=== PATIENT | female | born 1990 | race Caucasian/White ===

== ENCOUNTER 2016-11-14 10:45 | Outpatient (RCR) | payer MEDICAID ==
--- OUTSIDE RECORDS SUMMARY | 2016-10-24 10:36 | XMS REPORT | Continuity of Care Document ---
Author Author [facility] Organization [facility] Address Unknown Phone Unavailable Care Team Providers Care Acds Block 1 Operator Name Role Phone MAURA CHATTERJEE MD PCP Insurance Providers Payer Name Policy Number Subscriber Name Relationship [facility] [id number] Starr Chu 18 Self / Same As Patient Advance Directives Directive Response Recorded Date/Time Advance Directives No 09/30/16 11:00am Health Care Power of Crane Man No 09/30/16 11:00am Organ Donor Yes 09/30/16 11:00am Resuscitation Status Full Code 09/30/16 11:00am Chief Complaint and Reason for Visit Chief Complaint General Problems/Pain Reason for Visit Urinary tract infection Nausea & vomiting Dental abscess Problems Active Problems Medical Problem Onset Date Status Abdominal pain Unknown Acute Bronchitis Unknown Acute Dental abscess Unknown Acute Nausea & vomiting Unknown Acute RLQ abdominal pain Unknown Acute Urinary tract infection Unknown Acute Medications Current Home Medications Medication Dose Units Route Directions Days/Qty Instructions Start Date Vit/Iron Fumarate/Fa 1 Each 1 Each Oral Daily 09/06/16 Ondansetron 8 Mg 8 Mg Oral Every 6 Hours as needed for Nausea 5 Amoxicillin 500 Mg 500 Mg Oral Three Times A Day 21 09/30/16 Past Home Medications Medication Directions Ordered Status Ondansetron Hcl 4 Mg Tab, 4 Mg Oral Every 4HRS 10/30/15 Discontinued Famotidine 20 Mg Tablet, 20 Mg Oral Twice A Day 10/30/15 Discontinued Tramadol Hcl 50 Mg Tablet, 50 Mg Oral Every 6 Hours as needed for Pain Discontinued Prednisone 20 Mg Tab, 40 Mg Oral Daily 01/26/16 Discontinued Albuterol Sulfate 8.5 Gm Hfa.aer.ad, 2 Puff Inhalation Every 4HRS as needed for Shortness Of Breath 01/26/16 Discontinued Azithromycin 250 Mg Tablet, 250 Mg Oral As Directed 01/26/16 Discontinued Social History Social History Problem Response Recorded Date/Time Alcohol Use Rarely Uses 01/25/2016 9:12pm Recreational Drug Use No 01/25/2016 9:12pm Recent Foreign Travel No 09/30/2016 10:57am Recent Infectious Disease Exposure No 09/30/2016 10:57am Smoking Status Current Everyday Smoker 09/30/2016 11:00am Recent Hopitalizations No 09/30/2016 11:00am Query Response Start Date Stop Date Smoking Status Current Everyday Smoker Hospital Discharge Instructions No hospital discharge instructions. Plan of Care Discharge Date 09/30/16 1:30pm Disposition 01 HOME, SELF-CARE Condition at Discharge Stable Instructions/Education Provided Urinary Tract Infection, Adult (DC) Prescriptions See Medication Section Referrals MAURA CHATTERJEE MD - Primary Care Physician Additional Instructions/Education 1. Antibiotics as directed 2. Nausea medication as needed 3. Follow-up with your doctor next week 5. Return to ER for any fevers or other concerns All discharge instructions reviewed with patient and/or family. Voiced understanding. Functional Status No functional status results. Allergies, Adverse Reactions, Alerts No known allergies. Immunizations No immunization records. Vital Signs Acute Vital Signs Vital Response Date/Time Temperature (Fahrenheit) 97.9 degrees F (97.6 - 99.5) 09/30/2016 10:57am Temperature (Calculated Celsius) 36.84079 degrees C (36.4 - 37.5) 09/30/2016 10:57am Temperature Source Temporal 09/30/2016 10:57am Pulse Rate (adult) 109 bpm (60 - 90) 09/30/2016 10:57am Respiratory Rate 18 bpm (12 - 24) 09/30/2016 10:57am Blood Pressure 139/92 mm Hg 09/30/2016 10:57am Blood Pressure Mean 108 mm Hg 09/30/2016 10:57am Pain Numeric Pain Scale 9 09/30/2016 10:57am Pain Height (Feet) 6 feet 09/30/2016 10:57am Height (Inches) 0.00 inches 09/12/2016 9:25pm Height (Calculated Centimeters) 182.205156 cm 09/30/2016 10:57am Weight (Pounds) 273 pounds 09/30/2016 10:57am Weight (Ounces) 0.0 oz 09/12/2016 9:25pm Weight (Calculated Grams) 752791.13 gm 09/12/2016 9:25pm Weight (Calculated Kilograms) 123.885180 kilograms 09/30/2016 10:57am Calculated BMI 36.9 09/12/2016 9:25pm Capillary Refill Capillary Refill Less Than 3 Seconds 09/30/2016 10:57am Results Pending Laboratory Results Test Name Collection Date/Time Procedures No known history of procedures. Encounters Encounter Location Arrival/Admit Date Discharge/Depart Date Attending Provider Departed Emergency Room [facility] 09/30/16 10:36am 03/12 1:30pm ADELA GONZALEZ APRN Registered Clinic [facility] 09/16/16 12:18pm MAURA CHATTERJEE MD Departed Clinic [facility] 09/12/16 9:20pm 09/12/16 10: 47pm NELSY SWEENEY DO Departed Clinic [facility] 09/06/16 6:04pm 09/06/16 10: 20pm MAURA CHATTERJEE MD Recent Diagnosis
[2016-10-24 12:51] VITALS: BP 135/85
--- NOTE | 2016-10-24 12:56 | Diagnostic Imaging Report ---
INDICATION: Abnormal quad screening. TECHNIQUE: Limited real-time grayscale images were obtained over the gravid uterus in various projections. FINDINGS: There was normal breathing movements, movement, posture and tone as well as normal volume amniotic fluid. Total amniotic fluid index is 7.8. There is active cardiac motion. IMPRESSION: Normal biophysical profile score of 8 out of 8. Dictated by: Dictated on workstation # [id number]
[2016-10-31 12:40] VITALS: BP 142/86
--- NOTE | 2016-11-01 11:20 | Diagnostic Imaging Report ---
OB ultrasound. INDICATION: Biophysical profile and measurements. FINDINGS: The heart rate is 140 beats per minute and the presentation is cephalic. Total ANA LAURA is at 8.6. Biophysical profile parameter criteria as met with total score of 8 out of 8. The placenta is anterior with no placenta previa. growth parameters are biparietal diameter at 33 weeks and 3 days, head circumference at 34 weeks and 1 day, abdominal circumference at 33 weeks and 4 days, and femur length at 36 weeks and 5 days for an average of 34 weeks and 4 days, compatible with gestational age of 35 weeks and 3 days. Estimated weight is 2.4 kg. IMPRESSION: Appropriate interval growth. Biophysical profile score is 8 out of 8. ANA LAURA is near the lower limits of normal at 8.6 cm. Dictated by: Dictated on workstation # [id number]
[2016-11-07 13:00] VITALS: BP 131/78
--- NOTE | 2016-11-07 13:34 | Diagnostic Imaging Report ---
Biophysical profile. INDICATION: Abnormal quad screening. FINDINGS: heart rate is 130 beats per minute. presentation is cephalic. Placenta is anterior. No placenta previa. The amniotic fluid index is 8.7 cm. Criteria for biophysical profile are all met for a total score of 8 out of 8. IMPRESSION: Total biophysical profile is 8 out of 8. Dictated by: Dictated on workstation # [id number]
[~2016-11-14 10:45] MED LIST: AMOX500C2 PO; AZIT250T PO; AZIT250T5 PO; FAMO-119 PO; ONDA8TAB9 PO; ONDN4T PO; PRD20T PO; PREN1TAB71 PO; RT-ALBUINH IH; TRAM50TA2 PO
--- NOTE | 2016-11-14 12:14 | Diagnostic Imaging Report ---
INDICATION: Abnormal quad screen. FINDINGS: The heart rate is 133 beats per minutes. The position is cephalic. The amniotic fluid index at 5.4 cm. Criteria for biophysical profile were abnormal with only 1 second of movement seen, no bleeding noted. No flexion or extension seen. Total biophysical profile score is 2/8. IMPRESSION: Total biophysical profile score is 2/8. Oligohydramnios. The findings were given to OB nurse Marianna taking care of the patient by cardiac cath technologist when the exam was performed. Dictated by: Dictated on workstation # [id number]
[2016-11-17] MEDS ORDERED: NIFE60TA64 PO (10:00)
[2016-11-17] MEDS ORDERED: HYDR-3812 PO (10:00)
== END 2017-01-22 | disposition home or self-care (01) ==
LOC: RAD 10:45
PROVIDERS: ATTEND Family Medicine
DX: O28.0 Abnormal hematological finding on antenatal screening of mother (principal); Z3A.34 34 weeks gestation of pregnancy
CPT/HCPCS: 59025; 76805; 76819

== ENCOUNTER 2017-09-25 21:07 | Emergency (ER) | payer SELFPAY ==
[~2017-09-25] VITALS: Ht 182.9 cm; Wt 115.2 kg
[~2017-09-25 21:07] MED LIST changes: +HYDR-3812 PO; +NIFE60TA64 PO
--- OUTSIDE RECORDS SUMMARY | 2017-09-25 21:12 | XMS REPORT ---
Author Author SENMAURA [facility] Address [address] [place] [address] Care Team Providers Care Maintainer Plant Name Role Phone MAURA CHATTERJEE Unavailable PROBLEMS Type Condition ICD9-CM Code CYC10-UL Code Onset Dates Condition Status SNOMED Code Problem Generalized anxiety disorder F41.1 Active 25569805 Problem Anxiety, generalized F41.1 Active 97486367 Problem depression F53 Active 35349948 Problem Patient is a currently breast-feeding mother Z39.1 Active 422797119 Problem History of gestational hypertension Z87.59 Active 240641141 ALLERGIES Substance Reaction Event Type Date Status N.K.D.A. Unknown Non Drug Allergy Dec, Unknown SOCIAL HISTORY No smoking Hx information available PLAN OF CARE Activity Details Follow Up 3 Months Reason:HTN, depression VITAL SIGNS Height 71 in 2016-12-29 Weight 258.0 lbs 2016-12-29 Temperature 98.0 degrees Fahrenheit 2016-12-29 Heart Rate 78 bpm 2016-12-29 Respiratory Rate 18 2016-12-29 BMI 35.98 kg/m2 2016-12-29 Blood pressure systolic 136 mmHg 2016-12-29 Blood pressure diastolic 78 mmHg 2016-12-29 MEDICATIONS Medication Instructions Dosage Frequency Start Date End Date Duration Status Active Depo-Provera 150 MG/ML Intramuscular every 12 weeks 1 ml Dec, Active Prozac 20 mg Orally Once a day 1 capsule in the morning 24h Nov, Active NIFEdipine ER 60 mg Orally Once a day 1 tablet on an empty stomach 24h Nov, Active RESULTS Name Result Date Reference Range TEST, URINE (IN HOUSE) 2016-12-29 RESULTS negative Lot # [id number] Control + Exp date 02/2018 PROCEDURES Procedure Date Ordered Related Diagnosis Body Site INJ MDRXYPRGESTRON CNTRACPT 150 MG Dec 29, 2016 THER/PROPH/DIAG INJ, SC/IM Dec 29, 2016 Office Visit, Est Pt., Level 3 Dec 29, 2016 URINE TEST Dec 29, 2016 IMMUNIZATIONS Vaccine Route Administration Date Status MEDRXYPROGESTERONE ACETATE IM Intramuscular Dec 29, 2016 Administered
--- OUTSIDE RECORDS SUMMARY | 2017-09-25 21:12 | XMS REPORT ---
Author Author MAURA CHATTERJEE [facility] Address [address] [place] [address] Care Team Providers Care Waiter/Waitress Tourist Class Name Role Phone MAURA CHATTERJEE Unavailable PROBLEMS Type Condition ICD9-CM Code VUU30-SW Code Onset Dates Condition Status SNOMED Code Problem Anxiety, generalized F41.1 Active 94677761 Problem Generalized anxiety disorder F41.1 Active 93366906 Problem depression F53 Active 08200746 Problem Patient is a currently breast-feeding mother Z39.1 Active 632786464 Problem History of gestational hypertension Z87.59 Active 948957338 ALLERGIES Unknown Allergies SOCIAL HISTORY No smoking Hx information available PLAN OF CARE VITAL SIGNS MEDICATIONS Unknown Medications RESULTS No Results PROCEDURES No Known procedures IMMUNIZATIONS No Known Immunizations
--- OUTSIDE RECORDS SUMMARY | 2017-09-25 21:12 | XMS REPORT ---
Author Author MICHEL ECHOLS [facility] Address [address] [place] [address] Care Team Providers Care Inclinometer Tester Name Role Phone MICHEL ECHOLS Unavailable PROBLEMS Type Condition ICD9-CM Code HGV47-UK Code Onset Dates Condition Status SNOMED Code Problem Generalized anxiety disorder F41.1 Active 37121621 Problem Anxiety, generalized F41.1 Active 18174598 Problem depression F53 Active 46176529 Problem Patient is a currently breast-feeding mother Z39.1 Active 881249090 Problem History of gestational hypertension Z87.59 Active 036721931 ALLERGIES Unknown Allergies SOCIAL HISTORY No smoking Hx information available PLAN OF CARE Activity Details Follow Up 1 Week Reason:Depression VITAL SIGNS MEDICATIONS Unknown Medications RESULTS No Results PROCEDURES Procedure Date Ordered Related Diagnosis Body Site Psychotherapy, patient &/family, 30 minutes, established patient Dec 21, 2016 IMMUNIZATIONS No Known Immunizations
--- OUTSIDE RECORDS SUMMARY | 2017-09-25 21:12 | XMS REPORT ---
Author Author SEN MAURA [facility] Address [address] [place] [address] Care Team Providers Care Adult Psychiatrist Name Role Phone SENMUNDO HANCOCKHANY Unavailable PROBLEMS Type Condition ICD9-CM Code NYD00-YY Code Onset Dates Condition Status SNOMED Code Problem Anxiety, generalized F41.1 Active 18924321 Problem Generalized anxiety disorder F41.1 Active 07617754 Problem depression F53 Active 18644551 Problem Patient is a currently breast-feeding mother Z39.1 Active 161410191 Problem History of gestational hypertension Z87.59 Active 030706152 ALLERGIES Unknown Allergies SOCIAL HISTORY No smoking Hx information available PLAN OF CARE VITAL SIGNS Height 71 in 2016-11-09 Weight 288.0 lbs 2016-11-09 Temperature 98.0 degrees Fahrenheit 2016-11-09 BMI 40.168 kg/m2 2016-11-09 Blood pressure systolic 140 mmHg 2016-11-09 Blood pressure diastolic 76 mmHg 2016-11-09 MEDICATIONS Medication Instructions Dosage Frequency Start Date End Date Duration Status Active RESULTS Name Result Date Reference Range UA OB DIP (IN HOUSE) 2016-11-09 Glucose negative Protein trace LDH 2016-11-09 LDH 170 119-226 URIC ACID, SERUM 2016-11-09 Uric Acid, Serum 5.8 2.5-7.1 URINE PROTEIN TO CREATININE RATIO 2016-11-09 Creatinine, Urine 218.9 Not Estab. Protein,Total,Urine 47.9 Not Estab. Protein/Creat Ratio 219 0-200 CBC 2016-11-09 WBC 15.4 3.4-10.8 RBC 4.19 3.77-5.28 Hemoglobin 12.7 11.1-15.9 Hematocrit 38.0 34.0-46.6 MCV 91 79-97 MCH 30.3 26.6-33.0 MCHC 33.4 31.5-35.7 RDW 12.3 12.3-15.4 Platelets 178 150-379 Neutrophils 61 Lymphs 31 Monocytes 7 Eos 1 Basos 0 Neutrophils (Absolute) 9.3 1.4-7.0 Lymphs (Absolute) 4.7 0.7-3.1 Monocytes(Absolute) 1.1 0.1-0.9 Eos (Absolute) 0.1 0.0-0.4 Baso (Absolute) 0.0 0.0-0.2 Immature Granulocytes 0 Immature Grans (Abs) 0.0 0.0-0.1 CMP 2016-11-09 Glucose, Serum 98 65-99 BUN 9 6-20 Creatinine, Serum 0.60 0.57-1.00 eGFR If NonAfricn Am 126 >59 eGFR If Africn Am 145 >59 BUN/Creatinine Ratio 15 8-20 Sodium, Serum 142 134-144 Potassium, Serum 3.8 3.5-5.2 Chloride, Serum 106 96-106 Carbon Dioxide, Total 19 18-29 Calcium, Serum 8.9 8.7-10.2 Protein, Total, Serum 5.9 6.0-8.5 Albumin, Serum 3.5 3.5-5.5 Globulin, Total 2.4 1.5-4.5 A/G Ratio 1.5 1.1-2.5 Bilirubin, Total <0.2 0.0-1.2 Alkaline Phosphatase, S 215 39-117 AST (SGOT) 13 0-40 ALT (SGPT) 11 0-32 PROCEDURES Procedure Date Ordered Related Diagnosis Body Site URINE-NO MICRO Nov 09, 2016 [facility] Nov [facility], 2016 VENIPUNCT, ROUTINE* Nov 09, 2016 Office Visit, Est Pt., Level 3 Nov 09, 2016 IMMUNIZATIONS No Known Immunizations
--- OUTSIDE RECORDS SUMMARY | 2017-09-25 21:12 | XMS REPORT ---
Author Author MAURA CHATTERJEE [employer] Address Unknown Phone Unavailable Care Team Providers Care Automobile Engine Assembler Name Role Phone MAURA CHATTERJEE CP Unavailable Allergies No Known Allergies Problems Problem Type Condition Code Onset Dates Condition Status Assessment Abnormal quad screen O28.0 Active Assessment Third trimester Z33.1 Active Assessment 31 weeks gestation of Z3A.31 Active Assessment Encounter for immunization Z23 Active Assessment Proteinuria affecting in third trimester O12.13 Active Problem Third trimester bleeding O46.93 Active Problem Partial placenta previa, second trimester O44.12 Active Problem Proteinuria affecting in third trimester O12.13 Active Problem Abnormal quad screen O28.0 Active Problem Elevated blood pressure affecting in first trimester, antepartum O13.1 Active Problem Proteinuria affecting in second trimester O12.12 Active Problem Hypertension affecting in second trimester O16.2 Active Medications Medication Code System Code Instructions Start Date End Date Status Dosage [facility] [id number] not defined Procedures Procedure Coding System Code Date LAB NOT BILLED BY [facility] CPT-4 NOBLL Oct 05, 2016 Office Visit, Est Pt., Level 3 CPT-4 22114 Oct 05, 2016 URINE-NO MICRO CPT-4 01574 Oct 05, 2016 SINGLE IMMUNIZATION ADMIN CPT-4 30798 Oct 05, 2016 TDAP (BOOSTRIX) CPT-4 33607 Oct 05, 2016 VENIPUNCT, ROUTINE* CPT-4 04976 Oct 05, 2016 Vital Signs Date/Time: Oct 05, 2016 Cardiac Monitoring Heart Rate 100 bpm Weight 276 lbs Height 71 in BMI 38.494 Index Blood Pressure Diastolic 70 mmHg Blood Pressure Systolic 124 mmHg Results Name Result Date Reference Range Unit Abnormality Flag LDH ----LDH 160 [id number] 119-226 IU/L URIC ACID, SERUM ----Uric Acid, Serum 5.0 23427577 2.5-7.1 mg/dL UA OB DIP (IN HOUSE) ----Glucose negative 20161005 ----Protein trace 34352930 ROUTINE VENIPUNCTURE CMP ----BUN/Creatinine Ratio 12 20161005 8-20 ----eGFR If Africn Am 147 74119580 >59 mL/min/1.73 ----eGFR If NonAfricn Am 128 84278844 >59 mL/min/1.73 ----Creatinine, Serum 0.58 09294215 0.57-1.00 mg/dL ----Chloride, Serum 103 20161005 97-106 mmol/L ----Potassium, Serum 4.3 00877755 3.5-5.2 mmol/L ----Sodium, Serum 140 23467193 136-144 mmol/L ----Protein, Total, Serum 6.0 73390060 6.0-8.5 g/dL ----Albumin, Serum 2.9 40755859 3.5-5.5 g/dL L ----Globulin, Total 3.1 48267924 1.5-4.5 g/dL ----A/G Ratio 0.9 20161005 1.1-2.5 L ----BUN 7 20161005 6-20 mg/dL ----Glucose, Serum 85 35084474 65-99 mg/dL ----Carbon Dioxide, Total 22 20161005 18-29 mmol/L ----Calcium, Serum 9.6 20807968 8.7-10.2 mg/dL ----AST (SGOT) 15 20161005 0-40 IU/L ----ALT (SGPT) 16 20161005 0-32 IU/L ----Bilirubin, Total 0.2 55388706 0.0-1.2 mg/dL ----Alkaline Phosphatase, S 140 20161005 39-117 IU/L H Ultrasound : OB, Follow-up URINE PROTEIN TO CREATININE RATIO ----Protein/Creat Ratio 198 47082900 0-200 mg/g creat ----Protein,Total,Urine 33.8 10813509 Not Estab. mg/dL ----Creatinine, Urine 170.5 80828509 Not Estab. mg/dL CBC ----Hemoglobin 13.2 41996742 11.1-15.9 g/dL ----RBC 4.24 88283639 3.77-5.28 x10E6/uL ----MCV 93 80809511 79-97 fL ----Hematocrit 39.5 32577196 34.0-46.6 % ----MCHC 33.4 52240172 31.5-35.7 g/dL ----MCH 31.1 49950990 26.6-33.0 pg ----Platelets 215 90571960 150-379 x10E3/uL ----RDW 13.1 12569262 12.3-15.4 % ----Neutrophils 68 27515127 % ----Monocytes 7 05107284 % ----Lymphs 23 04346040 % ----Basos 0 68636952 % ----Eos 2 52054738 % ----Immature Grans (Abs) 0.0 25101694 0.0-0.1 x10E3/uL ----Lymphs (Absolute) 2.6 26777365 0.7-3.1 x10E3/uL ----WBC 11.3 54710962 3.4-10.8 x10E3/uL H ----Immature Granulocytes 0 45760809 % ----Neutrophils (Absolute) 7.6 60379966 1.4-7.0 x10E3/uL H ----Baso (Absolute) 0.0 90791217 0.0-0.2 x10E3/uL ----Monocytes(Absolute) 0.8 12702034 0.1-0.9 x10E3/uL ----Eos (Absolute) 0.3 23324376 0.0-0.4 x10E3/uL Immunizations Vaccine Administration Date TDAP (BOOSTRIX) Oct 05, 2016 Summary Purpose eClinicalWorks Submission
--- OUTSIDE RECORDS SUMMARY | 2017-09-25 21:16 | XMS REPORT ---
Author Author MAURA CHATTERJEE [employer] Address Unknown Phone Unavailable Care Team Providers Care Lumber Sticker Name Role Phone MAURA CHATTERJEE Unavailable Allergies No Known Allergies Problems Problem Type Condition Code Onset Dates Condition Status Problem Elevated blood pressure affecting in first trimester, antepartum O13.1 Active Problem Proteinuria affecting in third trimester O12.13 Active Problem Third trimester bleeding O46.93 Active Problem Chronic hypertension affecting O10.919 Active Problem Hypertension affecting in second trimester O16.2 Active Problem Abnormal quad screen O28.0 Active Problem Partial placenta previa, second trimester O44.12 Active Problem Proteinuria affecting in second trimester O12.12 Active Medications No Known Medications Results No Known Results Summary Purpose eClinicalWorks Submission
--- OUTSIDE RECORDS SUMMARY | 2017-09-25 21:16 | XMS REPORT ---
Author Author SEN MAURA Organization [facility] Address [address] [place] [address] Care Team Providers Care Film Recordist Name Role Phone GRANT CHATTERJEEY Unavailable PROBLEMS Type Condition ICD9-CM Code IVO77-NL Code Onset Dates Condition Status SNOMED Code Problem Proteinuria affecting in second trimester O12.12 Active 95746634 Problem Hypertension affecting in second trimester O16.2 Active 908215715 Assessment , first, second trimester Z34.02 16 Jul, 2016 Active 393896690 Problem Abnormal quad screen O28.0 Active 596252332 Problem Elevated blood pressure affecting in first trimester, antepartum O13.1 Active 88256365 ALLERGIES Substance Reaction Event Type Date Status N.K.D.A. Unknown Non Drug Allergy Jul, Unknown SOCIAL HISTORY No smoking Hx information available PLAN OF CARE VITAL SIGNS Height 71 in 2016-08-12 Weight 272 lbs 2016-08-12 Heart Rate 100 bpm 2016-08-12 Respiratory Rate 20 2016-08-12 BMI 37.93 kg/m2 2016-08-12 Blood pressure systolic 128 mmHg 2016-08-12 Blood pressure diastolic 78 mmHg 2016-08-12 MEDICATIONS Medication Instructions Dosage Frequency Start Date End Date Duration Status Active RESULTS Name Result Date Reference Range UA OB DIP (IN HOUSE) 2016-08-12 Glucose negative Protein negative PROCEDURES Procedure Date Ordered Related Diagnosis Body Site URINE-NO MICRO Aug 12, 2016 IMMUNIZATIONS No Known Immunizations
--- OUTSIDE RECORDS SUMMARY | 2017-09-25 21:19 | XMS REPORT ---
Author Author SEN MAURA Organization [facility] Address [address] [place] [address] Care Team Providers Care Blankmaker Name Role Phone SENMUNDO HANCOCKHANY Unavailable PROBLEMS Type Condition ICD9-CM Code HZX89-UA Code Onset Dates Condition Status SNOMED Code Problem Abnormal quad screen O28.0 Active 356803140 Problem Elevated blood pressure affecting in first trimester, antepartum O13.1 Active 12019686 Assessment 22 weeks gestation of Z3A.22 08 Jul, 2016 Active 80761650 Assessment Hypertension affecting in second trimester O16.2 08 Jul, 2016 Active 001818708 Assessment Proteinuria affecting in second trimester O12.12 08 Jul, 2016 Active 69208656 ALLERGIES Unknown Allergies SOCIAL HISTORY No smoking Hx information available PLAN OF CARE VITAL SIGNS Height 71 in 2016-08-04 Weight 270.0 lbs 2016-08-04 Heart Rate 78 bpm 2016-08-04 Respiratory Rate 18 2016-08-04 BMI 37.657 kg/m2 2016-08-04 Blood pressure systolic 126 mmHg 2016-08-04 Blood pressure diastolic 80 mmHg 2016-08-04 MEDICATIONS Medication Instructions Dosage Frequency Start Date End Date Duration Status Active RESULTS Name Result Date Reference Range UA OB DIP (IN HOUSE) 2016-08-04 Glucose Negative Protein Trace PROCEDURES Procedure Date Ordered Related Diagnosis Body Site URINE-NO MICRO Aug 04, 2016 Office Visit, Est Pt., Level 2 Aug 04, 2016 IMMUNIZATIONS No Known Immunizations
--- OUTSIDE RECORDS SUMMARY | 2017-09-25 21:19 | XMS REPORT ---
Author Author MICHEL ECHOLS [facility] Address [address] [place] [address] Care Team Providers Care Document Review Attorney Name Role Phone MICHEL ECHOLS Unavailable PROBLEMS Type Condition ICD9-CM Code MYM03-XK Code Onset Dates Condition Status SNOMED Code Problem Generalized anxiety disorder F41.1 Active 27744335 Problem Anxiety, generalized F41.1 Active 53046230 Problem depression F53 Active 06769141 Problem Patient is a currently breast-feeding mother Z39.1 Active 650159953 Problem History of gestational hypertension Z87.59 Active 096274821 ALLERGIES Unknown Allergies SOCIAL HISTORY No smoking Hx information available PLAN OF CARE Activity Details Follow Up 1 Week Reason:Depression and anxiety VITAL SIGNS MEDICATIONS Unknown Medications RESULTS No Results PROCEDURES Procedure Date Ordered Related Diagnosis Body Site Psych diagnostic evaluation, new patient Nov 30, 2016 IMMUNIZATIONS No Known Immunizations
--- OUTSIDE RECORDS SUMMARY | 2017-09-25 21:19 | XMS REPORT ---
Author Author MAURA CHATTERJEE eClinicalWorks Address Unknown Phone Unavailable Care Team Providers Care Direct Response Consultant Name Role Phone MAURA CHATTERJEE Unavailable Allergies No Known Allergies Problems Problem Type Condition Code Onset Dates Condition Status Problem Proteinuria affecting in second trimester O12.12 Active Problem Hypertension affecting in second trimester O16.2 Active Problem Partial placenta previa, second trimester O44.12 Active Assessment Hypertension affecting in second trimester O16.2 Active Assessment Proteinuria affecting in second trimester O12.12 Active Problem Abnormal quad screen O28.0 Active Problem Elevated blood pressure affecting in first trimester, antepartum O13.1 Active Medications No Known Medications Procedures Procedure Coding System Code Date VENIPUNCT, ROUTINE* CPT-4 14439 Aug 30, 2016 LAB NOT BILLED BY [facility] CPT-4 NOBLL Aug 30, 2016 Results Name Result Date Reference Range Unit Abnormality Flag URIC ACID, SERUM ----Uric Acid, Serum 5.0 [id number] 2.5-7.1 mg/dL URINE PROTEIN TO CREATININE RATIO ----Creatinine, Urine 58.8 16015061 Not Estab. mg/dL ----Protein/Creat Ratio 170 20928680 0-200 mg/g creat ----Protein,Total,Urine 10.0 66540356 Not Estab. mg/dL ROUTINE VENIPUNCTURE LDH ----LDH 152 57562993 119-226 IU/L CBC ----RDW 13.3 88607859 12.3-15.4 % ----MCHC 34.6 30862010 31.5-35.7 g/dL ----MCH 31.0 64537003 26.6-33.0 pg ----MCV 89 51975321 79-97 fL ----Hematocrit 38.1 98883512 34.0-46.6 % ----Hemoglobin 13.2 51438678 11.1-15.9 g/dL ----Immature Granulocytes 0 80129877 % ----RBC 4.26 98678564 3.77-5.28 x10E6/uL ----WBC 10.0 90102490 3.4-10.8 x10E3/uL ----Immature Grans (Abs) 0.0 53951466 0.0-0.1 x10E3/uL ----Eos (Absolute) 0.2 38708946 0.0-0.4 x10E3/uL ----Basos 0 59763852 % ----Baso (Absolute) 0.0 84300761 0.0-0.2 x10E3/uL ----Neutrophils (Absolute) 7.2 67213262 1.4-7.0 x10E3/uL H ----Lymphs (Absolute) 1.8 08277125 0.7-3.1 x10E3/uL ----Monocytes(Absolute) 0.8 32725776 0.1-0.9 x10E3/uL ----Neutrophils 72 77244117 % ----Lymphs 18 99166369 % ----Monocytes 8 05538526 % ----Eos 2 90665444 % ----Platelets 175 42953515 150-379 x10E3/uL CMP ----Creatinine, Serum 0.55 20363493 0.57-1.00 mg/dL L ----BUN 6 62819890 6-20 mg/dL ----eGFR If Africn Am 151 04026295 >59 mL/min/1.73 ----eGFR If NonAfricn Am 131 31653508 >59 mL/min/1.73 ----Sodium, Serum 140 81600076 134-144 mmol/L ----BUN/Creatinine Ratio 11 86001140 8-20 ----Chloride, Serum 105 09809944 97-108 mmol/L ----Potassium, Serum 4.0 60827630 3.5-5.2 mmol/L ----Carbon Dioxide, Total 19 20160830 18-29 mmol/L ----Protein, Total, Serum 6.1 99000470 6.0-8.5 g/dL ----Calcium, Serum 9.2 92232579 8.7-10.2 mg/dL ----Globulin, Total 2.5 20160830 1.5-4.5 g/dL ----Albumin, Serum 3.6 20160830 3.5-5.5 g/dL ----Bilirubin, Total 0.2 20160830 0.0-1.2 mg/dL ----Glucose, Serum 100 20160830 65-99 mg/dL H ----A/G Ratio 1.4 20160830 1.1-2.5 ----ALT (SGPT) 28 20160830 0-32 IU/L ----Alkaline Phosphatase, S 99 20160830 39-117 IU/L ----AST (SGOT) 21 20160830 0-40 IU/L Summary Purpose eClinicalWorks Submission
--- OUTSIDE RECORDS SUMMARY | 2017-09-25 21:19 | XMS REPORT ---
Author Author MAURA CHATTERJEE eClinicalWorks Address Unknown Phone Unavailable Care Team Providers Care Landscaper Helper Name Role Phone MAURA CHATTERJEE Unavailable Allergies No Known Allergies Problems Problem Type Condition Code Onset Dates Condition Status Problem Elevated blood pressure affecting in first trimester, antepartum O13.1 Active Assessment Abnormal quad screen O28.0 Active Problem Abnormal quad screen O28.0 Active Assessment 17 weeks gestation of Z3A.17 Active Medications Medication Code System Code Instructions Start Date End Date Status Dosage [facility] [id number] not defined Procedures Procedure Coding System Code Date Office Visit, Est Pt., Level 2 CPT-4 93449 Jun 30, 2016 Vital Signs Date/Time: Jun 30, 2016 Cardiac Monitoring Heart Rate 94 bpm Weight 263.3 lbs Height 71 in BMI 36.723 Index Blood Pressure Diastolic 79 mmHg Blood Pressure Systolic 136 mmHg Results No Known Results Summary Purpose eClinicalWorks Submission
--- OUTSIDE RECORDS SUMMARY | 2017-09-25 21:19 | XMS REPORT ---
Author Author MAURA CHATTERJEE eClinicalWorks Address Unknown Phone Unavailable Care Team Providers Care Technical Administrator Name Role Phone MAURA CHATTERJEE CP Unavailable [...] antepartum O13.1 Active Medications No Known Medications Results Name Result Date Reference Range Unit Abnormality Flag UA OB DIP (IN HOUSE) ----Glucose negative 20160829 ----Protein trace 20160829 Summary Purpose eClinicalWorks Submission
--- OUTSIDE RECORDS SUMMARY | 2017-09-25 21:20 | XMS REPORT ---
Author Author MAUAR CHATTERJEE [facility] eClinicalWorks Address Unknown Phone Unavailable Care Team Providers Care Striper Spray Gun Name Role Phone MAURA CHATTERJEE CP Unavailable Allergies No Known Allergies Problems Problem Type Condition Code Onset Dates Condition Status Problem Proteinuria affecting in second trimester O12.12 Active Problem Hypertension affecting in second trimester O16.2 Active Problem Partial placenta previa, second trimester O44.12 Active Assessment Proteinuria affecting in second trimester O12.12 Active Assessment Hypertension affecting in second trimester O16.2 Active Problem Abnormal quad screen O28.0 Active Problem Elevated blood pressure affecting in first trimester, antepartum O13.1 Active Medications No Known Medications Vital Signs Date/Time: Aug 29, 2016 Blood Pressure Diastolic 78 mmHg Blood Pressure Systolic 146 mmHg Height 71 in Results No Known Results Summary Purpose eClinicalWorks Submission
--- OUTSIDE RECORDS SUMMARY | 2017-09-25 21:20 | XMS REPORT ---
Author Author MAURA CHATTERJEE eClinicalWorks Address Unknown Phone Unavailable Care Team Providers Care Grinder Operator Automatic Name Role Phone MAURA CHATTERJEE CP Unavailable Allergies, Adverse Reactions, Alerts Substance Reaction Event Type N.K.D.A. Info Not Available Non Drug Allergy Problems Problem Type Condition Code Onset Dates Condition Status Assessment 33 weeks gestation of Z3A.33 Active Problem Elevated blood pressure affecting in first trimester, antepartum O13.1 Active Assessment Proteinuria affecting in third trimester O12.13 Active Assessment Chronic hypertension affecting O10.919 Active Problem Proteinuria affecting in third trimester O12.13 Active Problem Third trimester bleeding O46.93 Active Problem Chronic hypertension affecting O10.919 Active Problem Hypertension affecting in second trimester O16.2 Active Problem Abnormal quad screen O28.0 Active Problem Partial placenta previa, second trimester O44.12 Active Problem Proteinuria affecting in second trimester O12.12 Active Medications Medication Code System Code Instructions Start Date End Date Status Dosage [facility] [id number] not defined Procedures Procedure Coding System Code Date LAB NOT BILLED BY [facility] CPT-4 NOBLL Oct 18, 2016 Office Visit, Est Pt., Level 3 CPT-4 93511 Oct 18, 2016 URINE-NO MICRO CPT-4 03358 Oct 18, 2016 VENIPUNCT, ROUTINE* CPT-4 57432 Oct 18, 2016 Vital Signs Date/Time: Oct 18, 2016 Cardiac Monitoring Heart Rate 102 bpm Weight 271.6 lbs Height 71 in BMI 37.881 Index Blood Pressure Diastolic 80 mmHg Blood Pressure Systolic 140 mmHg Results Name Result Date Reference Range Unit Abnormality Flag LDH ----LDH 159 [id number] 119-226 IU/L URIC ACID, SERUM ----Uric Acid, Serum 5.3 20161018 2.5-7.1 mg/dL UA OB DIP (IN HOUSE) ----Glucose negative 20161018 ----Protein 1+ 20161018 ROUTINE VENIPUNCTURE CMP ----BUN/Creatinine Ratio 14 20161018 8-20 ----eGFR If Africn Am 147 40348190 >59 mL/min/1.73 ----eGFR If NonAfricn Am 128 42779963 >59 mL/min/1.73 ----Creatinine, Serum 0.58 20161018 0.57-1.00 mg/dL ----Chloride, Serum 104 20161018 97-106 mmol/L ----Potassium, Serum 4.6 20161018 3.5-5.2 mmol/L ----Sodium, Serum 141 20161018 136-144 mmol/L ----Protein, Total, Serum 5.9 20161018 6.0-8.5 g/dL L ----Albumin, Serum 3.3 20161018 3.5-5.5 g/dL L ----Globulin, Total 2.6 20161018 1.5-4.5 g/dL ----A/G Ratio 1.3 20161018 1.1-2.5 ----BUN 8 20161018 6-20 mg/dL ----Glucose, Serum 97 20161018 65-99 mg/dL ----Carbon Dioxide, Total 20 20161018 18-29 mmol/L ----Calcium, Serum 9.3 20161018 8.7-10.2 mg/dL ----AST (SGOT) 18 20161018 0-40 IU/L ----ALT (SGPT) 16 20161018 0-32 IU/L ----Bilirubin, Total 0.2 20161018 0.0-1.2 mg/dL ----Alkaline Phosphatase, S 167 20161018 39-117 IU/L H URINE PROTEIN TO CREATININE RATIO ----Protein/Creat Ratio 179 20161018 0-200 mg/g creat ----Protein,Total,Urine 32.9 20161018 Not Estab. mg/dL ----Creatinine, Urine 183.4 20161018 Not Estab. mg/dL CBC ----Hemoglobin 13.0 20161018 11.1-15.9 g/dL ----RBC 4.16 20161018 3.77-5.28 x10E6/uL ----MCV 94 20161018 79-97 fL ----Hematocrit 39.0 20161018 34.0-46.6 % ----MCHC 33.3 20161018 31.5-35.7 g/dL ----MCH 31.3 20161018 26.6-33.0 pg ----Platelets 199 20161018 150-379 x10E3/uL ----RDW 13.3 20161018 12.3-15.4 % ----Neutrophils 66 61147105 % ----Monocytes 8 25958125 % ----Lymphs 24 58938078 % ----Basos 0 97096595 % ----Eos 2 20161018 % ----Immature Grans (Abs) 0.0 20161018 0.0-0.1 x10E3/uL ----Lymphs (Absolute) 2.9 75274844 0.7-3.1 x10E3/uL ----WBC 12.3 03975467 3.4-10.8 x10E3/uL H ----Immature Granulocytes 0 34946839 % ----Neutrophils (Absolute) 8.1 46241065 1.4-7.0 x10E3/uL H ----Baso (Absolute) 0.0 83636256 0.0-0.2 x10E3/uL ----Monocytes(Absolute) 1.0 71345677 0.1-0.9 x10E3/uL H ----Eos (Absolute) 0.2 21430597 0.0-0.4 x10E3/uL Summary Purpose eClinicalWorks Submission
--- OUTSIDE RECORDS SUMMARY | 2017-09-25 21:21 | XMS REPORT ---
Author Author MAURA CHATTERJEE eClinicalWorks Address Unknown Phone Unavailable Care Team Providers Care Business Development Associate Name Role Phone MAURA CHATTERJEE CP Unavailable Allergies, Adverse Reactions, Alerts Substance Reaction Event Type N.K.D.A. Info Not Available Non Drug Allergy Problems Problem Type Condition Code Onset Dates Condition Status Assessment 27 weeks gestation of Z3A.27 Active Problem Proteinuria affecting in second trimester O12.12 Active Problem Hypertension affecting in second trimester O16.2 Active Problem Partial placenta previa, second trimester O44.12 Active Assessment Diabetes mellitus screening Z13.1 Active Assessment , first, second trimester Z34.02 Active Problem Abnormal quad screen O28.0 Active Problem Elevated blood pressure affecting in first trimester, antepartum O13.1 Active Medications Medication Code System Code Instructions Start Date End Date Status Dosage Robitussin DM [facility] [id number] not defined [facility] [id number] not defined Procedures Procedure Coding System Code Date LAB NOT BILLED BY [facility] CPT-4 NOBLL Sep 02, 2016 Office Visit, Est Pt., Level 2 CPT-4 16274 Sep 02, 2016 URINE-NO MICRO CPT-4 34698 Sep 02, 2016 VENIPUNCT, ROUTINE* CPT-4 91749 Sep 02, 2016 Vital Signs Date/Time: Sep 02, 2016 Cardiac Monitoring Heart Rate 100 bpm Weight 272.2 lbs Height 71 in BMI 37.964 Index Blood Pressure Diastolic 82 mmHg Blood Pressure Systolic 134 mmHg Results Name Result Date Reference Range Unit Abnormality Flag GLUCOSE TITO 1 HOUR ----Gestational Diabetes Screen 119 56520956 65-139 mg/dL CBC ----Basos 0 65958002 % ----MCV 92 02846637 79-97 fL ----Hematocrit 37.7 06126656 34.0-46.6 % ----Eos 2 61351108 % ----MCHC 34.0 17219635 31.5-35.7 g/dL ----Monocytes 6 20160902 % ----MCH 31.3 84300559 26.6-33.0 pg ----Lymphs 21 20160902 % ----Eos (Absolute) 0.2 24886245 0.0-0.4 x10E3/uL ----WBC 9.9 14184132 3.4-10.8 x10E3/uL ----Monocytes(Absolute) 0.6 22766145 0.1-0.9 x10E3/uL ----Lymphs (Absolute) 2.1 46803803 0.7-3.1 x10E3/uL ----Hemoglobin 12.8 87603668 11.1-15.9 g/dL ----Neutrophils (Absolute) 7.0 32833067 1.4-7.0 x10E3/uL ----RBC 4.09 77122018 3.77-5.28 x10E6/uL ----Immature Grans (Abs) 0.0 84989814 0.0-0.1 x10E3/uL ----Immature Granulocytes 0 20160902 % ----Neutrophils 71 21568159 % ----Baso (Absolute) 0.0 34805617 0.0-0.2 x10E3/uL ----RDW 13.4 22871630 12.3-15.4 % ----Platelets 185 11226690 150-379 x10E3/uL UA OB DIP (IN HOUSE) ----Glucose negative 20160902 ----Protein trace 20160902 ROUTINE VENIPUNCTURE Summary Purpose eClinicalWorks Submission
--- OUTSIDE RECORDS SUMMARY | 2017-09-25 21:22 | XMS REPORT ---
Author Author MICHEL ECHOLS [facility] Address [address] [place] [address] Care Team Providers Care Branch Office Administrator Name Role Phone MICHEL ECHOLS Unavailable PROBLEMS Type Condition ICD9-CM Code UNI88-IO Code Onset Dates Condition Status SNOMED Code Problem Generalized anxiety disorder F41.1 Active 13453979 Problem Anxiety, generalized F41.1 Active 36663400 Problem depression F53 Active 65555523 Problem Patient is a currently breast-feeding mother Z39.1 Active 695903964 Problem History of gestational hypertension Z87.59 Active 686676257 ALLERGIES Unknown Allergies SOCIAL HISTORY No smoking Hx information available PLAN OF CARE Activity Details Follow Up 1 Week Reason:Depression VITAL SIGNS MEDICATIONS Unknown Medications RESULTS No Results PROCEDURES Procedure Date Ordered Related Diagnosis Body Site Psychotherapy, patient &/family, 30 minutes, established patient Dec 14, 2016 IMMUNIZATIONS No Known Immunizations
--- OUTSIDE RECORDS SUMMARY | 2017-09-25 21:22 | XMS REPORT ---
Author Author SENMAURA HANCOCK Organization [facility] Address [address] [place] [address] Care Team Providers Care Pier Master Assistant Name Role Phone MAURA CHATTERJEE Unavailable PROBLEMS Type Condition ICD9-CM Code DBL84-[id number] Code Onset Dates Condition Status SNOMED Code Assessment 25 weeks gestation of Z3A.25 Jul, Active 41202017 Assessment Encounter for immunization Z23 Jul, Active 283545851 Problem Partial placenta previa, second trimester O44.12 Active 12644256 Problem Proteinuria affecting in second trimester O12.12 Active 32280868 Problem Elevated blood pressure affecting in first trimester, antepartum O13.1 Active 56047577 Assessment , first, second trimester Z34.02 Jul, Active 978358033 Problem Hypertension affecting in second trimester O16.2 Active 487693142 Problem Abnormal quad screen O28.0 Active 327263106 ALLERGIES Substance Reaction Event Type Date Status N.K.D.A. Unknown Non Drug Allergy Jul, Unknown SOCIAL HISTORY No smoking Hx information available PLAN OF CARE VITAL SIGNS Height 71 in 2016-08-19 Weight 270.9 lbs 2016-08-19 Heart Rate 92 bpm 2016-08-19 Respiratory Rate 20 2016-08-19 BMI 37.783 kg/m2 2016-08-19 Blood pressure systolic 130 mmHg 2016-08-19 Blood pressure diastolic 82 mmHg 2016-08-19 MEDICATIONS Medication Instructions Dosage Frequency Start Date End Date Duration Status Active RESULTS Name Result Date Reference Range UA OB DIP (IN HOUSE) 2016-08-19 Glucose negative Protein trace PROCEDURES Procedure Date Ordered Related Diagnosis Body Site URINE-NO MICRO Aug 19, 2016 Office Visit, Est Pt., Level 2 Aug 19, 2016 SINGLE IMMUNIZATION ADMIN Aug 19, 2016 FLUARIX QUAD P-FREE 3 AND UP .50 2016 Aug 19, 2016 IMMUNIZATIONS Vaccine Route Administration Date Status FLUARIX QUAD P-FREE 3 AND UP .50 2016 IM Intramuscular Aug 19, 2016 Administered
--- OUTSIDE RECORDS SUMMARY | 2017-09-25 21:23 | XMS REPORT ---
Author Author MAURA CHATTERJEE eClinicalWorks Address Unknown Phone Unavailable Care Team Providers Care Prescription Eyeglass Maker Name Role Phone MAURA CHATTERJEE CP Unavailable Allergies, Adverse Reactions, Alerts Substance Reaction Event Type N.K.D.A. Info Not Available Non Drug Allergy Problems Problem Type Condition Code Onset Dates Condition Status Assessment Normal , first Z34.00 Active Assessment 17 weeks gestation of Z3A.17 Active Problem Elevated blood pressure affecting in first trimester, antepartum O13.1 Active Medications Medication Code System Code Instructions Start Date End Date Status Dosage [facility] [address] not defined Procedures Procedure Coding System Code Date ALPHA-FETOPROTEIN, SERUM CPT-4 34841 June 24, 2016 INHIBIN A CPT-4 69167 June 24, 2016 URINE-NO MICRO CPT-4 26843 June 24, 2016 CHORIONIC GONADOTROPIN TEST CPT-4 15177 June 24, 2016 ASSAY OF ESTRIOL CPT-4 01871 June 24, 2016 Office Visit, Est Pt., Level 2 CPT-4 90250 June 24, 2016 VENIPUNCT, ROUTINE* CPT-4 60061 June 24, 2016 Vital Signs Date/Time: June 24, 2016 Cardiac Monitoring Heart Rate 90 bpm Weight 260.8 lbs Height 71 in BMI 36.374 Index Blood Pressure Diastolic 82 mmHg Blood Pressure Systolic 138 mmHg Results No Known Results Summary Purpose eClinicalWorks Submission
--- OUTSIDE RECORDS SUMMARY | 2017-09-25 21:23 | XMS REPORT ---
Author Author MICHEL ECHOLS [facility] Address [address] [place] [address] Care Team Providers Care Tone Cabinet Assembler Name Role Phone MICHEL ECHOLS Unavailable PROBLEMS Type Condition ICD9-CM Code UID70-OT Code Onset Dates Condition Status SNOMED Code Problem Generalized anxiety disorder F41.1 Active 27666218 Problem Anxiety, generalized F41.1 Active 89500765 Problem depression F53 Active 01489116 Problem Patient is a currently breast-feeding mother Z39.1 Active 127497537 Problem History of gestational hypertension Z87.59 Active 955859605 ALLERGIES Unknown Allergies SOCIAL HISTORY No smoking Hx information available PLAN OF CARE Activity Details Follow Up 1 Week Reason:Depression VITAL SIGNS MEDICATIONS Unknown Medications RESULTS No Results PROCEDURES Procedure Date Ordered Related Diagnosis Body Site Psychotherapy, patient &/family, 45 minutes, established patient Dec 07, 2016 IMMUNIZATIONS No Known Immunizations
--- OUTSIDE RECORDS SUMMARY | 2017-09-25 21:23 | XMS REPORT ---
Author Author MAURA CHATTERJEE [facility] Address [address] [place] [address] Care Team Providers Care Special Events Planner Name Role Phone MAURA CHATTERJEE Unavailable PROBLEMS Type Condition ICD9-CM Code VGA29-WE Code Onset Dates Condition Status SNOMED Code Problem Generalized anxiety disorder F41.1 Active 56064561 Problem Anxiety, generalized F41.1 Active 23890849 Problem depression F53 Active 22698752 Problem Patient is a currently breast-feeding mother Z39.1 Active 363396072 Problem History of gestational hypertension Z87.59 Active 196097927 ALLERGIES Unknown Allergies SOCIAL HISTORY No smoking Hx information available PLAN OF CARE VITAL SIGNS MEDICATIONS Medication Instructions Dosage Frequency Start Date End Date Duration Status Prozac 20 mg Orally Once a day 1 capsule in the morning 24h Nov, 30 day(s) Active RESULTS No Results PROCEDURES No Known procedures IMMUNIZATIONS No Known Immunizations
--- OUTSIDE RECORDS SUMMARY | 2017-09-25 21:24 | XMS REPORT ---
Author Author MAURA CHATTERJEE eClinicalWorks Address Unknown Phone Unavailable Care Team Providers Care Archives Technician Name Role Phone MAURA CHATTERJEE Unavailable Allergies [...] O13.1 Active Medications No Known Medications Results No Known Results Summary Purpose eClinicalWorks Submission
--- OUTSIDE RECORDS SUMMARY | 2017-09-25 21:24 | XMS REPORT ---
Author Author MAURA CHATTERJEE eClinicalWorks Address Unknown Phone Unavailable Care Team Providers Care Spine Nurse Name Role Phone MAURA CHATTERJEE Unavailable Allergies No Known Allergies Problems Problem Type Condition Code Onset Dates Condition Status Problem Elevated blood pressure affecting in first trimester, antepartum O13.1 Active Assessment , first, second trimester Z34.02 Active Problem Abnormal quad screen O28.0 Active Assessment 21 weeks gestation of Z3A.21 Active Assessment Evaluate anatomy not seen on prior sonogram Z36 Active Assessment Hypertension affecting , second trimester O16.2 Active Assessment Proteinuria affecting in third trimester O12.13 Active Medications Medication Code System Code Instructions Start Date End Date Status Dosage [facility] [id number] not defined Procedures Procedure Coding System Code Date LACTATE (LD) (LDH) ENZYME CPT-4 20368 Jul 22, 2016 ASSAY OF BLOOD/URIC ACID CPT-4 40139 Jul 22, 2016 URINE-NO MICRO CPT-4 42226 Jul 22, 2016 COMPLETE CBC W/AUTO DIFF WBC CPT-4 16801 Jul 22, 2016 COMPREHEN METABOLIC PANEL CPT-4 91735 Jul 22, 2016 VENIPUNCT, ROUTINE* CPT-4 48107 Jul 22, 2016 Office Visit, Est Pt., Level 3 CPT-4 22785 Jul 22, 2016 Vital Signs Date/Time: Jul 22, 2016 Cardiac Monitoring Heart Rate 90 bpm Weight 264.4 lbs Height 71 in BMI 36.876 Index Blood Pressure Diastolic 79 mmHg Blood Pressure Systolic 144 mmHg Results No Known Results Summary Purpose eClinicalWorks Submission
--- OUTSIDE RECORDS SUMMARY | 2017-09-25 21:24 | XMS REPORT ---
Author Author MAURA CHATTERJEE [facility] Address [address] [place] [address] Care Team Providers Care Health And Wellness Sales Consultant Name Role Phone MAURA CHATTERJEE Unavailable PROBLEMS Type Condition ICD9-CM Code CUD99-AY Code Onset Dates Condition Status SNOMED Code Problem Generalized anxiety disorder F41.1 Active 90105977 Problem Anxiety, generalized F41.1 Active 30155312 Problem depression F53 Active 15045198 Problem Patient is a currently breast-feeding mother Z39.1 Active 913174472 Problem History of gestational hypertension Z87.59 Active 971362254 ALLERGIES Unknown Allergies SOCIAL HISTORY No smoking Hx information available PLAN OF CARE VITAL SIGNS MEDICATIONS Medication Instructions Dosage Frequency Start Date End Date Duration Status NIFEdipine ER 60 mg Orally Once a day 1 tablet on an empty stomach 24h Nov, Active RESULTS No Results PROCEDURES No Known procedures IMMUNIZATIONS No Known Immunizations
--- OUTSIDE RECORDS SUMMARY | 2017-09-25 21:25 | XMS REPORT ---
Author Author MICHEL ECHOLS [facility] Address [address] [place] [address] Care Team Providers Care Property Management Accountant Name Role Phone MICHEL ECHOLS Unavailable PROBLEMS Type Condition ICD9-CM Code MNJ90-GH Code Onset Dates Condition Status SNOMED Code Problem Generalized anxiety disorder F41.1 Active 98810852 Problem Anxiety, generalized F41.1 Active 32589618 Problem depression F53 Active 98973051 Problem Patient is a currently breast-feeding mother Z39.1 Active 850995279 Problem History of gestational hypertension Z87.59 Active 651421909 ALLERGIES Unknown Allergies SOCIAL HISTORY No smoking Hx information available PLAN OF CARE VITAL SIGNS MEDICATIONS Unknown Medications RESULTS No Results PROCEDURES No Known procedures IMMUNIZATIONS No Known Immunizations
--- OUTSIDE RECORDS SUMMARY | 2017-09-25 21:25 | XMS REPORT ---
Author Author MAURA CHATTERJEE eClinicalWorks Address Unknown Phone Unavailable Care Team Providers Care Facepiece Line Supervisor Name Role Phone MAURA CHATTERJEE Unavailable Allergies [...]
--- OUTSIDE RECORDS SUMMARY | 2017-09-25 21:25 | XMS REPORT ---
Author Author MAURA CHATTERJEE [facility] Address [address] [place] [address] Care Team Providers Care Health Workers Name Role Phone MAURA CHATTERJEE Unavailable PROBLEMS Type Condition ICD9-CM Code CVD23-KU Code Onset Dates Condition Status SNOMED Code Problem Anxiety, generalized F41.1 Active 10527809 Problem Generalized anxiety disorder F41.1 Active 72509147 Problem depression F53 Active 54467355 Problem Patient is a currently breast-feeding mother Z39.1 Active 289967370 Problem History of gestational hypertension Z87.59 Active 731928788 ALLERGIES Unknown Allergies SOCIAL HISTORY No smoking Hx information available PLAN OF CARE VITAL SIGNS Height 71 in 2016-11-19 Weight 286.5 lbs 2016-11-19 Temperature 97.9 degrees Fahrenheit 2016-11-19 Heart Rate 80 bpm 2016-11-19 Respiratory Rate 20 2016-11-19 BMI 39.95 kg/m2 2016-11-19 Blood pressure systolic 156 mmHg 2016-11-19 Blood pressure diastolic 92 mmHg 2016-11-19 MEDICATIONS Unknown Medications RESULTS No Results PROCEDURES No Known procedures IMMUNIZATIONS No Known Immunizations
--- OUTSIDE RECORDS SUMMARY | 2017-09-25 21:25 | XMS REPORT ---
Author Author MAURA CHATTERJEE eClinicalWorks Address Unknown Phone Unavailable Care Team Providers Care Practicing Urologist Name Role Phone MAURA CHATTERJEE CP Unavailable Allergies, Adverse Reactions, Alerts Substance Reaction Event Type N.K.D.A. Info Not Available Non Drug Allergy Problems Problem Type Condition Code Onset Dates Condition Status Assessment Unspecified abdominal pain R10.9 Active Assessment Proteinuria affecting in third trimester O12.13 Active Assessment Third trimester bleeding O46.93 Active Assessment 28 weeks gestation of Z3A.28 Active Assessment Other specified related conditions, unspecified trimester O26.899 Active Problem Third trimester bleeding O46.93 Active [...] Instructions Start Date End Date Status Dosage [facility] [place] [id number] not defined Procedures Procedure Coding System Code Date LAB NOT BILLED BY [facility] CPT-4 NOBLL Sep 13, 2016 No Charge CPT-4 73586 Sep 13, 2016 URINALYSIS, AUTO, W/O SCOPE CPT-4 41605 Sep 13, 2016 Office Visit, Est Pt., Level 3 CPT-4 81886 Sep 13, 2016 MAURER VAG, DNA, DIR PROBE CPT-4 13701 Sep 13, 2016 Vital Signs Date/Time: Sep 13, 2016 Cardiac Monitoring Heart Rate 96 bpm Weight 269.8 lbs Height 71 in BMI 37.629 Index Blood Pressure Diastolic 86 mmHg Blood Pressure Systolic 134 mmHg Results Name Result Date Reference Range Unit Abnormality Flag TRICHOMONAS (IN HOUSE) ----TRICHOMONAS negative [id number] ----Control + [id number] ----Lot # [id number] ----Exp date [id number] BACTERIAL VAGINOSIS (IN HOUSE) ----Exp date [id number] ----Control + [id number] ----Lot # [id number] ----RESULTS negative [id number] Summary Purpose eClinicalWorks Submission
--- OUTSIDE RECORDS SUMMARY | 2017-09-25 21:25 | XMS REPORT ---
Author Author [facility] Address [address] [place] [address] Care Team Providers Care Field Aide Name Role Phone MAURA CHATTERJEE Unavailable PROBLEMS Type Condition ICD9-CM Code ESM19-SU Code Onset Dates Condition Status SNOMED Code Problem Anxiety, generalized F41.1 Active 09171956 Problem Generalized anxiety disorder F41.1 Active 97864652 Problem depression F53 Active 20936521 Problem Patient is a currently breast-feeding mother Z39.1 Active 831668529 Problem History of gestational hypertension Z87.59 Active 133433729 ALLERGIES Unknown Allergies SOCIAL HISTORY No smoking Hx information available PLAN OF CARE VITAL SIGNS Height 71 in 2016-11-18 Blood pressure systolic 142 mmHg 2016-11-18 Blood pressure diastolic 100 mmHg 2016-11-18 MEDICATIONS Unknown Medications RESULTS No Results PROCEDURES No Known procedures IMMUNIZATIONS No Known Immunizations
--- OUTSIDE RECORDS SUMMARY | 2017-09-25 21:25 | XMS REPORT ---
Author Author MAURA CHATTERJEE [facility] eClinicalWorks Address Unknown Phone Unavailable Care Team Providers Care Falafel Cart Cook Name Role Phone MAURA CHATTERJEE Unavailable Allergies No Known Allergies Problems Problem Type Condition Code Onset Dates Condition Status Problem Proteinuria affecting in second trimester O12.12 Active Problem Hypertension affecting in second trimester O16.2 Active Problem Partial placenta previa, second trimester O44.12 Active Problem Abnormal quad screen O28.0 Active Problem Elevated blood pressure affecting in first trimester, antepartum O13.1 Active Medications No Known Medications Vital Signs Date/Time: Sep 08, 2016 Blood Pressure Systolic 138 mmHg Cardiac Monitoring Heart Rate 88 bpm Height 71 in Blood Pressure Diastolic 86 mmHg Results No Known Results Summary Purpose eClinicalWorks Submission
--- OUTSIDE RECORDS SUMMARY | 2017-09-25 21:25 | XMS REPORT ---
Author Author MAURA CHATTERJEE [facility] Address [address] [place] [address] Care Team Providers Care [employer] Name Role Phone MAURA CHATTERJEE Unavailable PROBLEMS Type Condition ICD9-CM Code OTM95-TY Code Onset Dates Condition Status SNOMED Code Problem Generalized anxiety disorder F41.1 Active 35343138 Problem Anxiety, generalized F41.1 Active 31362371 Problem depression F53 Active 81977078 Problem Patient is a currently breast-feeding mother Z39.1 Active 025660031 Problem History of gestational hypertension Z87.59 Active 281412566 ALLERGIES Unknown Allergies SOCIAL HISTORY No smoking Hx information available PLAN OF CARE VITAL SIGNS MEDICATIONS Medication Instructions Dosage Frequency Start Date End Date Duration Status NIFEdipine ER 60 mg Orally Once a day 1 tablet on an empty stomach 24h Nov, 30 days Active RESULTS No Results PROCEDURES No Known procedures IMMUNIZATIONS No Known Immunizations
--- OUTSIDE RECORDS SUMMARY | 2017-09-25 21:25 | XMS REPORT ---
Author Author MAURA CHATTERJEE eClinicalWorks Address Unknown Phone Unavailable Care Team Providers Care Patch Press Operator Name Role Phone MAURA CHATTERJEE CP Unavailable Allergies, Adverse Reactions, Alerts Substance Reaction Event Type N.K.D.A. Info Not Available Non Drug Allergy Problems Problem Type Condition Code Onset Dates Condition Status Assessment Proteinuria affecting in second trimester O12.12 Active Assessment 27 weeks gestation of Z3A.27 Active Problem Proteinuria affecting in second trimester O12.12 Active Problem Hypertension affecting in second trimester O16.2 Active Problem Partial placenta previa, second trimester O44.12 Active Assessment Syncope, unspecified syncope type R55 Active Assessment Hypertension affecting in second trimester O16.2 Active Problem Abnormal quad screen O28.0 Active Problem Elevated blood pressure affecting in first trimester, antepartum O13.1 Active Medications Medication Code System Code Instructions Start Date End Date Status Dosage [facility] [id number] not defined Procedures Procedure Coding System Code Date MEASURE BLOOD OXYGEN LEVEL CPT-4 52197 Sep 07, 2016 URINALYSIS, AUTO, W/O SCOPE CPT-4 28179 Sep 07, 2016 ELECTROCARDIOGRAM, TRACING CPT-4 47386 Sep 07, 2016 [facility] CPT-4 NOBLL Sep 07, 2016 DRUG SCREEN NON TLC DEVICES CPT-4 06800 Sep 07, 2016 VENIPUNCT, ROUTINE* CPT-4 65731 Sep 07, 2016 Office Visit, Est Pt., Level 3 CPT-4 28398 Sep 07, 2016 Vital Signs Date/Time: Sep 07, 2016 Cardiac Monitoring Heart Rate 98 bpm Weight 273 lbs Height 71 in BMI 38.076 Index Oximetry 98 % Blood Pressure Diastolic 90, lay down 118 mmHg Blood Pressure Systolic 160 mmHg Results Name Result Date Reference Range Unit Abnormality Flag EKG, TRACING (IN-HOUSE) Summary Purpose eClinicalWorks Submission
--- OUTSIDE RECORDS SUMMARY | 2017-09-25 21:26 | XMS REPORT ---
Author Author MAURA CHATTERJEE [facility] eClinicalWorks Address Unknown Phone Unavailable Care Team Providers Care Automotive Brake Adjuster Name Role Phone MAURA CHATTERJEE Unavailable Allergies [...]
--- OUTSIDE RECORDS SUMMARY | 2017-09-25 21:26 | XMS REPORT ---
Author Author MAURA CHATTERJEE eClinicalWorks Address Unknown Phone Unavailable Care Team Providers Care Waste Salvager Name Role Phone MAURA CHATTERJEE Unavailable Allergies No Known Allergies Problems Problem Type Condition Code Onset Dates Condition Status Problem Elevated blood pressure affecting in first trimester, antepartum O13.1 Active Assessment , first, second trimester Z34.02 Active Problem Abnormal quad screen O28.0 Active Assessment 21 weeks gestation of Z3A.21 Active Assessment Evaluate anatomy not seen on prior sonogram Z36 Active Assessment Proteinuria affecting in third trimester O12.13 Active Assessment Hypertension affecting , second trimester O16.2 Active Medications No Known Medications Procedures Procedure Coding System Code Date ASSAY OF PROTEIN, URINE CPT-4 56635 Jul 25, 2016 Results No Known Results Summary Purpose eClinicalWorks Submission
--- NOTE | 2017-09-25 21:38 | ED Cough/URI ---
General Chief Complaint: Cough/Cold/Flu Symptoms Stated Complaint: COUGH/SOB/VOMITING Source: patient Exam Limitations: no limitations History of Present Illness Time seen by provider: 21:37 Initial Comments To ER with a one-month history of a cough that is persistent and only occasionally productive. She reports chills but no fevers. She has not sought care for this prior to tonight. She does have an associated sore throat and rhinorrhea. She does report posttussive emesis. Timing/Duration: other (1 month) Modifying Factors: Improves With Coughing Associated Symptoms: cough, shortness of breath Allergies and Home Medications Allergies Coded Allergies: No Known Drug Allergies (Unverified , 03/29/12) Home Medications Azithromycin 250 Mg Tablet, 250 MG PO UD, #6 TAKE 2 TABLETS ON DAY ONE THEN TAKE 1 TABLET DAILY FOR FOUR MORE DAYS Prescribed by: ADELA GONZALEZ on 09/25/172141 D-Methorphan Hb/P-Epd HCl/Bpm 118 Ml Syrup, 5 ML PO Q4H PRN for COUGH, #120 Prescribed by: ADELA GONZALEZ on 09/25/17 2142 Hydrocodone/Acetaminophen 1 Each Tablet, 1-2 TAB PO Q4H PRN for PAIN, #30 Ref 0 Prescribed by: MAURA CHATTERJEE on 11/17/16 1000 Nifedipine 60 Mg Tab.er.24, 60 MG PO DAILY, #30 Ref 0 Prescribed by: MAURA CHATTERJEE on 11/17/16 1000 Vit/Iron Fumarate/FA 1 Each Tablet, 1 EACH PO DAILY, (Reported) Constitutional: see HPI, chills EENTM: nose congestion, throat pain Respiratory: see HPI, cough Cardiovascular: no symptoms reported Genitourinary: no symptoms reported Musculoskeletal: no symptoms reported Skin: no symptoms reported Psychiatric/Neurological: No Symptoms Reported Hematologic/Lymphatic: No Symptoms Reported Past Gdszroc-Rwyqiw-Owumva Hx Patient Social History Type Used: Cigarettes Former Smoker, Quit: May 07, 2016 Recent Foreign Travel: No Contact w/Someone Who Travel: No Recent Hopitalizations: Yes ( related - observation ) Immunizations Up To Date Tetanus Booster (TDap): Unknown PED Vaccines UTD: No Date of Influenza Vaccine: Aug 19, 2016 Seasonal Allergies Seasonal Allergies: Yes Reproductive System Hx Reproductive Disorders: No Sexually Transmitted Disease: No HIV/AIDS: No Psychosocial Behavioral Health Disorders: Anxiety, Bipolar, Depression Blood Transfusions Adverse Reaction to a Blood Tr: No Family Medical History Significant Family History: No Pertinent Family Hx Family Medial History: Asthma 19 MOTHER G8 SISTER Maternal grandmother Colon cancer Maternal grandfather Paternal grandmother Diabetes mellitus Maternal grandfather Hypertension Maternal grandfather Maternal grandmother Physical Exam Vital Signs Vital Sign - Last 12Hours 09/25/17 21:29 Temp 98.0 Pulse 97 Resp 20 B/P (MAP) 140/104 Pulse Ox 99 O2 Delivery Room Air Capillary Refill : General Appearance: WD/WN, no apparent distress Eyes: Bilateral Eye Normal Inspection, Bilateral Eye PERRL, Bilateral Eye EOMI HEENT: PERRL/EOMI, normal ENT inspection Neck: non-tender, full range of motion Respiratory: normal breath sounds, no respiratory distress, no accessory muscle use, No decreased breath sounds, No crackles, No rales, No rhonchi, No stridor, No wheezing Cardiovascular: regular rate, rhythm, no murmur Gastrointestinal: normal bowel sounds, non tender, soft Extremities: normal range of motion, non-tender Neurologic/Psychiatric: alert, normal mood/affect, oriented x 3 Skin: normal color, warm/dry Progress/Results/Core Measures Results/Orders My Orders Orders - ADELA GONZALEZ APRN Chest Pa/Lat (2 View) (09/25/17 21:34) Dexamethasone Injection (Decadron Inject (09/25/17 21:45) Medications Given in ED Current Medications Medications Dose Ordered Sig/Gaetano Route Start Time Stop Time Status Last Admin Dose Admin Dexamethasone Sodium Phosphate 10 mg ONCE ONCE IM 09/25/17 21:45 09/25/17 21:46 DC 09/25/17 21:48 10 MG Vital Signs/I&O Vital Sign - Last 12Hours 09/25/17 21:29 Temp 98.0 Pulse 97 Resp 20 B/P (MAP) 140/104 Pulse Ox 99 O2 Delivery Room Air Departure Impression Impression: Primary Impression: Bronchitis Disposition: 01 HOME, SELF-CARE Condition: Stable Departure-Patient Inst. Decision time for Depature: 21:41 Referrals: MAURA CHATTERJEE MD (PCP/Family) Primary Care Physician Patient Instructions: Acute Bronchitis, Adult (DC) Add. Discharge Instructions: 1. Follow-up to next week 2. Return to ER for any concerns 3. All discharge instructions reviewed with patient and/or family. Voiced understanding. Scripts Azithromycin (Azithromycin) 250 Mg Tablet 250 MG PO UD, #6 TAB TAKE 2 TABLETS ON DAY ONE THEN TAKE 1 TABLET DAILY FOR FOUR MORE DAYS Prov: ADELA GONZALEZ APRN 09/25/17 D-Methorphan Hb/P-Epd HCl/Bpm (Bromfed Dm Cough Syrup) 118 Ml Syrup 5 ML PO Q4H Y for COUGH, #120 ML Prov: ADELA GONZALEZ APRN 09/25/17 Work/School Note: Family Work Note Patient Received Medical Care In the Emergency Department On: Sep 25, 2017 Patient Will Be Able to Return to Work/School On: Sep 26, 2017 ADELA GONZALEZ APRN Sep 25, 2017 21:38
[2017-09-25] MEDS ORDERED: D-ME118S33 PO (21:42)
[2017-09-25] MEDS ORDERED: AZIT250T5 PO (21:42)
[2017-09-25] MEDS ORDERED: DEXAMETHASONE 10 MG/ML (DECADRON) 1 ML VIAL IM ONE (21:45)
--- NOTE | 2017-09-25 21:57 | Diagnostic Imaging Report ---
INDICATION: Cough and congestion. COMPARISON: 01/25/2016. FINDINGS: PA and lateral view show lungs to be well-aerated and clear. Heart is not enlarged. There is no pulmonary edema. No pneumothorax or pleural effusion. IMPRESSION: Normal PA and lateral chest. Dictated by: Dictated on workstation # [id number]
[2017-09-25 22:01] VITALS: BP 0/0
== END 2017-09-25 22:01 | disposition home or self-care (01) ==
LOC: EDUNIT# 21:07 → ER 21:08
DX: J40 Bronchitis, not specified as acute or chronic (principal); F41.9 Anxiety disorder, unspecified; F31.9 Bipolar disorder, unspecified; Z80.0 Family history of malignant neoplasm of digestive organs; Z87.891 Personal history of nicotine dependence
CPT/HCPCS: 71020; 99284

== ENCOUNTER 2018-10-03 10:02 | Emergency (ER) | payer SELFPAY ==
[~2018-10-03] VITALS: Ht 182.9 cm; Wt 112.5 kg
[~2018-10-03 10:02] MED LIST changes: +ACHD5005 PO; +AZIT250T12 PO; -AZIT250T5 PO; +D-ME118S33 PO; -HYDR-3812 PO
--- OUTSIDE RECORDS SUMMARY | 2018-10-03 10:56 | XMS REPORT ---
Author Author LIYA CAPUTO [facility] Address [address] [place] [address] Care Team Providers Care Nurse Intern Name Role Phone LIYA CAPUTO Unavailable PROBLEMS Type Condition ICD9-CM Code XJR90-SO Code Onset Dates Condition Status SNOMED Code Problem Acute seasonal allergic rhinitis, unspecified trigger J30.2 Active 256979369 Problem Generalized anxiety disorder F41.1 Active 68181416 Problem History of gestational hypertension Z87.59 Active 180880824 Problem depression F53 Active 87264321 Problem Anxiety, generalized F41.1 Active 52115839 Problem Patient is a currently breast-feeding mother Z39.1 Active 915239124 ALLERGIES No Known Allergies ENCOUNTERS Encounter Location Date Diagnosis [facility] [id number] [place] [phone] Sep, Acute seasonal allergic rhinitis, unspecified trigger J30.2 and Bronchitis J40 [facility] [id number] [place] [address] 90681- 4520 Jun, Encounter for Depo-Provera contraception Z30.42 [facility] [id number] [place] [address] 53241- 7036 March, Encounter for Depo-Provera contraception Z30.42 [facility] [id number] [place] [address] 09363- 5345 March, [facility] [address] [address] Dec, Encounter for Depo-Provera contraception Z30.42 ; History of gestational hypertension Z87.59 and depression F53 [facility] [id number] [place] [address] 37273- 4776 Nov, [facility] [address], [place] [address] Nov, depression F53 ; Patient is a currently breast- feeding mother Z39.1 and Anxiety, generalized F41.1 [facility] [address] [address] Nov, [facility] [id number] [place] [address] 68669- 9953 Nov, [facility] [id number] [place] [address] 77770- 2251 Nov, [facility] [id number] [place] [address] 67289- 3307 Nov, [facility] [id number] [place] [address] 15655- 5950 Nov, depression F53 and Anxiety, generalized F41.1 [facility] [id number] [place] [address] 25529- 4783 Nov, Anxiety, generalized F41.1 and depression F53 [facility] [id number] [place] [address] 99984- 0959 Nov, depression F53 and Generalized anxiety disorder F41.1 [facility] [address] [place] [address] 25170- 6576 Nov, depression F53 [facility] [id number] [place] [address] 02559- 5736 Nov, depression F53 and Patient is a currently breast- feeding mother Z39.1 [facility] [address] [place] [address] 02890- 2816 Oct, [facility] [address] [address] Oct, [facility] [address] [place] [address] 83220- 6510 Oct, Chronic hypertension affecting O10.9[address] [place] [address] [address] Oct, [facility] [id number] [place] [address] 94738- 5703 Oct, Proteinuria affecting in third trimester O12.13 ; Chronic hypertension affecting O10.919 and 36 weeks gestation of Z3A.36 [facility] [address] [place] [address] 03141- 6438 Oct, Elevated blood pressure affecting in first trimester, antepartum O13.1 [facility] [id number] [place] [address] 69589- 3441 07 Oct, 2016 care, first in third trimester Z34.03 ; Chronic hypertension affecting O10.919 ; 35 weeks gestation of Z3A.35 and STD exposure Z20.2 [facility] [id number] [place] [address] 95260- 0945 Sep, Proteinuria affecting in third trimester O12.13 ; Chronic hypertension affecting O10.919 ; care, first in third trimester Z34.03 and 34 weeks gestation of Z3A.34 [facility] [address] [place] [address] 99696- 6196 Sep, [facility] [address] [address] Sep, Proteinuria affecting in third trimester O12.13 ; 33 weeks gestation of Z3A.33 and Chronic hypertension affecting O10.919 [facility] [id number] [address] Sep, [facility] [id number] [place] [address] 33275- 5391 Sep, [facility] [address], [place] [address] 6[address] Sep, Third trimester Z33.1 ; 31 weeks gestation of Z3A.31 ; Abnormal quad screen O28.0 ; Proteinuria affecting in third trimester O12.13 and Encounter for immunization Z23 [facility] [id number] [place] [address] 85976- 1266 21 Aug, 2016 [facility] [id number] [place] [address] 98775- 0714 18 Aug, 2016 Proteinuria affecting in third trimester O12.13 ; Third trimester bleeding O46.93 ; Unspecified abdominal pain R10.9 ; Other specified related conditions, unspecified trimester O26.899 and 28 weeks gestation of Z3A.28 [facility] [id number] [place] [address] 53484- 0994 13 Aug, 2016 [facility] [id number] [place] [address] 53734- 4790 12 Aug, 2016 Syncope, unspecified syncope type R55 ; Hypertension affecting in second trimester O16.2 ; Proteinuria affecting in second trimester O12.12 and 27 weeks gestation of Z3A.27 [facility] [id number] [place] [address] 39587- 1755 07 Aug, 2016 Diabetes mellitus screening Z13.1 ; , first, second trimester Z34.02 and 27 weeks gestation of Z3A.27 [facility] [address] [place] [address] 65208- 4618 04 Aug, 2016 Hypertension affecting in second trimester O16.2 and Proteinuria affecting in second trimester O12.12 [facility] [address] [place] [address] 89579- 4375 04 Aug, 2016 Hypertension affecting in second trimester O16.2 and Proteinuria affecting in second trimester O12.12 [facility] [id number] [place] [address] 66811- 7036 Aug, Proteinuria affecting in second trimester O12.12 and Hypertension affecting in second trimester O16.2 [facility] [id number] [place] [address] 59464- 0481 Aug, Hypertension affecting in second trimester O16.2 [facility] [address] [place] [address] 64855- 4750 Aug, Hypertension affecting in second trimester O16.2 [facility] [id number] [place] [address] 76302- 3691 Jul, , first, second trimester Z34.02 ; 25 weeks gestation of Z3A.25 and Encounter for immunization Z23 [facility] [id number] [place] [address] 68975- 1679 Jul, Hypertension affecting in second trimester O16.2 ; Proteinuria affecting in second trimester O12.12 and 22 weeks gestation of Z3A.22 [facility] [id number] [place] [address] 84649- 8353 Jul, 21 weeks gestation of Z3A.21 ; Proteinuria affecting in second trimester O12.12 ; Hypertension affecting in second trimester O16.2 and Blurry vision, left eye H53.8 [facility] [id number] [place] [address] 60999- 3309 Jun, , first, second trimester Z34.02 ; Proteinuria affecting in third trimester O12.13 ; Hypertension affecting , second trimester O16.2 ; 21 weeks gestation of Z3A.21 and Evaluate anatomy not seen on prior sonogram Z36 [facility] [id number] [place] [address] 76566- 9622 Jun, , first, second trimester Z34.02 ; Hypertension affecting , second trimester O16.2 ; Proteinuria affecting in third trimester O12.13 ; 21 weeks gestation of Z3A.21 and Evaluate anatomy not seen on prior sonogram 36 [facility] [id number] [place] [address] 74443- 3056 Jun, Abnormal quad screen O28.0 and 17 weeks gestation of Z3A.17 [facility] [id number] [place] [address] 72896- 5579 May, Normal , first Z34.00 and 17 weeks gestation of Z3A.17 [facility] [address] [address] 6862 24 Apr, 2016 Normal , first Z34.00 and 12 weeks gestation of Z3A.12 [facility] [address], [place] [address] 5009 27 Mar, 2016 heart tones not heard O76 ; 20 weeks gestation of Z3A.20 and , first, second trimester Z34.02 [facility] [id number] [address] March, [facility] [id number] [place] [address] 59301- 9581 March, Encounter for test, result positive Z32.01 [facility] [address], [place] [address] Dec, Low back pain M54.5 ; Sore throat J02.9 ; Acute right lower quadrant pain R10.31 and Cough R05 [facility] [address] [place] [address] 8274 Feb, [facility] [id number] [place] [address] 02277- 9152 Dec, [facility] [address], [place] [address] Dec, [facility] [address] [place] [address] 40151- 1272 Dec, [facility] [address] [place] [address]- 6649 Dec, [facility] [id number] [place] [address] 26020- 8423 Dec, [facility] [address], [place] [address]- 3414 Dec, [facility] [id number] [place] [address] 2517 Dec, [facility] [address]32 Oct, [facility] [address] [place] [address]- 7903 Oct, [facility] [address] [place] [address]- 0932 Aug, [facility] [id number] Aug, [facility] [address] [place] [address] 263061- 8872 Aug, [facility] [id number] [address] Aug, [facility] [address] [place] [address]- 5934 Aug, [facility] [id number] Aug, [facility] [id number] [place] [address]- 7709 Aug, [facility] [address] [place] [address]- 4791 Aug, [facility] [address] [place] [address]- 7329 Aug, [facility] [id number] Jun, [facility] [id number] Jun, IMMUNIZATIONS No Known Immunizations SOCIAL HISTORY Never Assessed REASON FOR VISIT Cough since Aug- was treated by ER for bronchitis [facility] PLAN OF CARE Activity Details Follow Up prn Reason: VITAL SIGNS Height 71 in 2017-10-24 Weight 255.8 lbs 2017-10-24 Temperature 98.4 degrees Fahrenheit 2017-10-24 Heart Rate 80 bpm 2017-10-24 Respiratory Rate 22 2017-10-24 BMI 35.67 kg/m2 2017-10-24 Blood pressure systolic 128 mmHg 2017-10-24 Blood pressure diastolic 90 mmHg 2017-10-24 MEDICATIONS Medication Instructions Dosage Frequency Start Date End Date Duration Status PredniSONE 20 MG Orally Once a day 2 tablet 24h Sep, Oct, 5 days Active Not-Taking Flonase 50 MCG/ACT Nasally Once a day 1 spray in each nostril 24h Sep, 30 day(s) Active Prozac 20 mg Orally Once a day 1 capsule in the morning 24h Nov, Not-Taking Zyrtec Allergy 10 MG Orally Once a day 1 tablet 24h Sep, Oct, 30 day(s) Active NIFEdipine ER 60 mg Orally Once a day 1 tablet on an empty stomach 24h Nov, Not-Taking Robitussin DM Not-Taking Tylenol Cold Active Depo-Provera 150 MG/ML Intramuscular every 12 weeks 1 ml Dec, Not-Taking RESULTS No Results PROCEDURES No Known procedures INSTRUCTIONS MEDICATIONS ADMINISTERED No Known Medications
--- OUTSIDE RECORDS SUMMARY | 2018-10-03 10:57 | XMS REPORT ---
Author Author MAURA CHATTERJEE Organization [facility] Address [address] [place] [address] Care Team Providers Care Clinical Nurse Name Role Phone MAURA CHATTERJEE Unavailable PROBLEMS Type Condition ICD9-CM Code SOP48-TT Code Onset Dates Condition Status SNOMED Code Problem Generalized anxiety disorder F41.1 Active 72146622 Problem Anxiety, generalized F41.1 Active 56355823 Problem depression F53 Active 87194132 Problem Patient is a currently breast-feeding mother Z39.1 Active 579146930 Problem History of gestational hypertension Z87.59 Active 914251807 ALLERGIES No Information SOCIAL HISTORY Never Assessed PLAN OF CARE Activity Details Follow Up 3 Months Reason: VITAL SIGNS Height 71 in 2017-04-05 Blood pressure systolic 126 mmHg 2017-04-05 Blood pressure diastolic 82 mmHg 2017-04-05 MEDICATIONS Unknown Medications RESULTS Name Result Date Reference Range TEST, URINE (IN HOUSE) 2017-04-05 RESULTS Negative Lot # [id number] Control + Exp date 06/26/2018 PROCEDURES Procedure Date Ordered Result Body Site URINE TEST April 05, 2017 INJ MDRXYPRGESTRON CNTRACPT 150 MG April 05, 2017 THER/PROPH/DIAG INJ, SC/IM April 05, 2017 IMMUNIZATIONS Vaccine Route Administration Date Status MEDRXYPROGESTERONE ACETATE IM Intramuscular April 05, 2017 Administered
--- OUTSIDE RECORDS SUMMARY | 2018-10-03 10:57 | XMS REPORT ---
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 Name Role Phone MAURA CHATTERJEE Unavailable PROBLEMS Type Condition ICD9-CM Code FKN26-ZD Code Onset Dates Condition Status SNOMED Code Problem Generalized anxiety disorder F41.1 Active 72621131 Problem Anxiety, generalized F41.1 Active 33128225 Problem depression F53 Active 63893164 Problem Patient is a currently breast-feeding mother Z39.1 Active 524421337 Problem History of gestational hypertension Z87.59 Active 470747495 ALLERGIES No Information SOCIAL HISTORY Never Assessed PLAN OF CARE VITAL SIGNS MEDICATIONS Unknown Medications RESULTS No Results PROCEDURES No Known procedures IMMUNIZATIONS No Known Immunizations
--- OUTSIDE RECORDS SUMMARY | 2018-10-03 11:00 | XMS REPORT | Continuity of Care Document ---
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 Monocytes(Absolute) 0.9 x10E3/uL 0.1-0.9 Eos (Absolute) 0.2 x10E3/uL 0.0-0.4 Baso (Absolute) 0.0 x10E3/uL 0.0-0.2 Immature Granulocytes 0 % Immature Grans (Abs) 0.0 x10E3/uL 0.0-0.1 Comp. Metabolic Panel (14) - 10/26/16 15:27 Glucose, Serum 117 mg/dL 65-99 BUN 8 mg/dL 6-20 Creatinine, Serum 0.55 mg/dL 0.57-1.00 eGFR If NonAfricn Am 130 mL/min/1.73 >59 eGFR If Africn Am 150 mL/min/1.73 >59 BUN/Creatinine Ratio 15 8-20 Sodium, Serum 139 mmol/L 136-144 Potassium, Serum 4.2 mmol/L 3.5-5.2 Chloride, Serum 100 mmol/L 97-106 Carbon Dioxide, Total 23 mmol/L 18-29 Calcium, Serum 9.5 mg/dL 8.7-10.2 Protein, Total, Serum 6.5 g/dL 6.0-8.5 Albumin, Serum 3.8 g/dL 3.5-5.5 Globulin, Total 2.7 g/dL 1.5-4.5 A/G Ratio 1.4 1.1-2.5 Bilirubin, Total 0.3 mg/dL 0.0-1.2 Alkaline Phosphatase, S 207 IU/L 39-117 AST (SGOT) 15 IU/L 0-40 ALT (SGPT) 15 IU/L 0-32 Prot+CreatU (Random) - 10/26/16 15:27 Creatinine, Urine 124.7 mg/dL Not Estab. Protein,Total,Urine 27.8 mg/dL Not Estab. Protein/Creat Ratio 223 mg/g creat 0-200 Uric Acid, Serum - 10/26/16 15:27 Uric Acid, Serum 5.8 mg/dL 2.5-7.1 LDH - 10/26/16 15:27 LDH 184 IU/L 119-226 Complete urinalysis with reflex to culture - 10/30/16 21:30 Urine color determination YELLOW NRG Urine clarity determination SLIGHTLY CLOUDY NRG Urine pH measurement by test strip 6 5-9 Specific gravity of urine by test strip 1.025 1.016- 1.022 Urine protein assay by test strip, semi-quantitative 2+ NEGATIVE Urine glucose detection by automated test strip NEGATIVE NEGATIVE Erythrocytes detection in urine sediment by light microscopy 1+ NEGATIVE Urine ketones detection by automated test strip 1+ NEGATIVE Urine nitrite detection by test strip NEGATIVE NEGATIVE Urine total bilirubin detection by test strip NEGATIVE NEGATIVE Urine urobilinogen measurement by automated test strip (mass/volume) 1 mg/dL NORMAL Urine leukocyte esterase detection by dipstick 3+ NEGATIVE Automated urine sediment erythrocyte count by microscopy (number/high power field) [HPF] NRG Automated urine sediment leukocyte count by microscopy (number/high power field ) > [HPF] NRG Bacteria detection in urine sediment by light microscopy MODERATE NRG Squamous epithelial cells detection in urine sediment by light microscopy 5-10 NRG Crystals detection in urine sediment by light microscopy NONE NRG Casts detection in urine sediment by light microscopy NONE NRG Mucus detection in urine sediment by light microscopy NEGATIVE NRG Complete urinalysis with reflex to culture YES NRG Urine Trichomonas species detection by light microscopy FEW NRG Bacterial urine culture - 10/30/16 21:30 URINE CULTURE RESULTS <10,000/ML NRG Strep Gp B Culture - 11/02/16 15:11 Strep Gp B Culture Negative Negative CBC With Differential/Platelet - 11/02/16 15:11 WBC 13.2 x10E3/uL 3.4-10.8 RBC 4.47 x10E6/uL 3.77-5.28 Hemoglobin 13.9 g/dL 11.1-15.9 Hematocrit 41.1 % 34.0-46.6 MCV 92 fL 79-97 MCH 31.1 pg 26.6-33.0 MCHC 33.8 g/dL 31.5-35.7 RDW 12.8 % 12.3-15.4 Platelets 214 x10E3/uL 150-379 Neutrophils 67 % Lymphs 24 % Monocytes 8 % Eos 1 % Basos 0 % Neutrophils (Absolute) 8.7 x10E3/uL 1.4-7.0 Lymphs (Absolute) 3.1 x10E3/uL 0.7-3.1 Monocytes(Absolute) 1.1 x10E3/uL 0.1-0.9 Eos (Absolute) 0.2 x10E3/uL 0.0-0.4 Baso (Absolute) 0.0 x10E3/uL 0.0-0.2 Immature Granulocytes 0 % Immature Grans (Abs) 0.0 x10E3/uL 0.0-0.1 Comp. Metabolic Panel (14) - 11/02/16 15:11 Glucose, Serum 85 mg/dL 65-99 BUN 10 mg/dL 6-20 Creatinine, Serum 0.56 mg/dL 0.57-1.00 eGFR If NonAfricn Am 129 mL/min/1.73 >59 eGFR If Africn Am 149 mL/min/1.73 >59 BUN/Creatinine Ratio 18 8-20 Sodium, Serum 140 mmol/L 136-144 Potassium, Serum 4.5 mmol/L 3.5-5.2 Chloride, Serum 104 mmol/L 97-106 Carbon Dioxide, Total 21 mmol/L 18-29 Calcium, Serum 9.3 mg/dL 8.7-10.2 Protein, Total, Serum 5.9 g/dL 6.0-8.5 Albumin, Serum 3.4 g/dL 3.5-5.5 Globulin, Total 2.5 g/dL 1.5-4.5 A/G Ratio 1.4 1.1-2.5 Bilirubin, Total 0.3 mg/dL 0.0-1.2 Alkaline Phosphatase, S 226 IU/L 39-117 AST (SGOT) 20 IU/L 0-40 ALT (SGPT) 16 IU/L 0-32 Prot+CreatU (Random) - 11/02/16 15:11 Creatinine, Urine 222.7 mg/dL Not Estab. Protein,Total,Urine 32.7 mg/dL Not Estab. Protein/Creat Ratio 147 mg/g creat 0-200 Uric Acid, Serum - 11/02/16 15:11 Uric Acid, Serum 6.4 mg/dL 2.5-7.1 LDH - 11/02/16 15:11 LDH 184 IU/L 119-226 Streptococcus pyogenes antigen detection - 11/08/16 08:52 Streptococcus pyogenes antigen detection NEGATIVE NEGATIVE Bacterial throat culture - 11/08/16 08:52 Bacterial throat culture NBS NRG Complete blood count (CBC) with automated white blood cell (WBC) differential - 11/08/16 09:00 Blood leukocytes automated count (number/volume) 11.3 10*3/uL 4.3-11.0 Blood erythrocytes automated count (number/volume) 4.21 10*6/uL 4.35-5.85 Venous blood hemoglobin measurement (mass/volume) 13.1 g/dL 11.5-16.0 Blood hematocrit (volume fraction) 38 % 35-52 Automated erythrocyte mean corpuscular volume 91 [foz_us] 80-99 Automated erythrocyte mean corpuscular hemoglobin (mass per erythrocyte) 31 pg 25-34 Automated erythrocyte mean corpuscular hemoglobin concentration measurement ( mass/volume) 34 g/dL 32-36 Automated erythrocyte distribution width ratio 12.6 % 10.0-14.5 Automated blood platelet count (count/volume) 147 10*3/uL 130-400 Automated blood platelet mean volume measurement 11.2 [foz_us] 7.4-10.4 Automated blood neutrophils/100 leukocytes 64 % 42-75 Automated blood lymphocytes/100 leukocytes 25 % 12-44 Blood monocytes/100 leukocytes 9 % 0-12 Automated blood eosinophils/100 leukocytes 2 % 0-10 Automated blood basophils/100 leukocytes 0 % 0-10 Blood neutrophils automated count (number/volume) 7.3 10*3 1.8-7.8 Blood lymphocytes automated count (number/volume) 2.9 10*3 1.0-4.0 Blood monocytes automated count (number/volume) 1.0 10*3 0.0-1.0 Automated eosinophil count 0.2 10*3/uL 0.0-0.3 Automated blood basophil count (count/volume) 0.0 10*3/uL 0.0-0.1 Serum heterophile antibody titer - 11/08/16 09:00 Serum heterophile antibody titer NEGATIVE NEGATIVE CBC With Differential/Platelet - 11/09/16 15:53 WBC 15.4 x10E3/uL 3.4-10.8 RBC 4.19 x10E6/uL 3.77-5.28 Hemoglobin 12.7 g/dL 11.1-15.9 Hematocrit 38.0 % 34.0-46.6 MCV 91 fL 79-97 MCH 30.3 pg 26.6-33.0 MCHC 33.4 g/dL 31.5-35.7 RDW 12.3 % 12.3-15.4 Platelets 178 x10E3/uL 150-379 Neutrophils 61 % Lymphs 31 % Monocytes 7 % Eos 1 % Basos 0 % Neutrophils (Absolute) 9.3 x10E3/uL 1.4-7.0 Lymphs (Absolute) 4.7 x10E3/uL 0.7-3.1 Monocytes(Absolute) 1.1 x10E3/uL 0.1-0.9 Eos (Absolute) 0.1 x10E3/uL 0.0-0.4 Baso (Absolute) 0.0 x10E3/uL 0.0-0.2 Immature Granulocytes 0 % Immature Grans (Abs) 0.0 x10E3/uL 0.0-0.1 Comp. Metabolic Panel (14) - 11/09/16 15:53 Glucose, Serum 98 mg/dL 65-99 BUN 9 mg/dL 6-20 Creatinine, Serum 0.60 mg/dL 0.57-1.00 eGFR If NonAfricn Am 126 mL/min/1.73 >59 eGFR If Africn Am 145 mL/min/1.73 >59 BUN/Creatinine Ratio 15 8-20 Sodium, Serum 142 mmol/L 134-144 Potassium, Serum 3.8 mmol/L 3.5-5.2 Chloride, Serum 106 mmol/L 96-106 Carbon Dioxide, Total 19 mmol/L 18-29 Calcium, Serum 8.9 mg/dL 8.7-10.2 Protein, Total, Serum 5.9 g/dL 6.0-8.5 Albumin, Serum 3.5 g/dL 3.5-5.5 Globulin, Total 2.4 g/dL 1.5-4.5 A/G Ratio 1.5 1.1-2.5 Bilirubin, Total <0.2 mg/dL 0.0-1.2 Alkaline Phosphatase, S 215 IU/L 39-117 AST (SGOT) 13 IU/L 0-40 ALT (SGPT) 11 IU/L 0-32 Prot+CreatU (Random) - 11/09/16 15:53 Creatinine, Urine 218.9 mg/dL Not Estab. Protein,Total,Urine 47.9 mg/dL Not Estab. Protein/Creat Ratio 219 mg/g creat 0-200 Uric Acid, Serum - 11/09/16 15:53 Uric Acid, Serum 5.8 mg/dL 2.5-7.1 LDH - 11/09/16 15:53 LDH 170 IU/L 119-226 Complete urinalysis with reflex to culture - 11/12/16 01:20 Urine color determination YELLOW NRG Urine clarity determination SLIGHTLY CLOUDY NRG Urine pH measurement by test strip 6.5 5-9 Specific gravity of urine by test strip 1.020 1.016- 1.022 Urine protein assay by test strip, semi-quantitative 2+ NEGATIVE Urine glucose detection by automated test strip NEGATIVE NEGATIVE Erythrocytes detection in urine sediment by light microscopy NEGATIVE NEGATIVE Urine ketones detection by automated test strip 1+ NEGATIVE Urine nitrite detection by test strip NEGATIVE NEGATIVE Urine total bilirubin detection by test strip NEGATIVE NEGATIVE Urine urobilinogen measurement by automated test strip (mass/volume) 4 mg/dL NORMAL Urine leukocyte esterase detection by dipstick 2+ NEGATIVE Automated urine sediment erythrocyte count by microscopy (number/high power field) NONE NRG Automated urine sediment leukocyte count by microscopy (number/high power field ) [HPF] NRG Bacteria detection in urine sediment by light microscopy FEW NRG Squamous epithelial cells detection in urine sediment by light microscopy 10-25 NRG Crystals detection in urine sediment by light microscopy NONE NRG Casts detection in urine sediment by light microscopy NONE NRG Mucus detection in urine sediment by light microscopy LARGE NRG Complete urinalysis with reflex to culture NO NRG Urine protein/creatinine mass ratio - 11/12/16 01:20 Urine protein measurement (mass/volume) 66 mg/dL 6-12 Urine creatinine measurement (mass/volume) 328 mg/dL 30- 125 Urine protein/creatinine mass ratio 0.20 NRG Complete blood count (CBC) with automated white blood cell (WBC) differential - 11/12/16 02:20 Blood leukocytes automated count (number/volume) 13.0 10*3/uL 4.3-11.0 Blood erythrocytes automated count (number/volume) 4.13 10*6/uL 4.35-5.85 Venous blood hemoglobin measurement (mass/volume) 12.8 g/dL 11.5-16.0 Blood hematocrit (volume fraction) 37 % 35-52 Automated erythrocyte mean corpuscular volume 90 [foz_us] 80-99 Automated erythrocyte mean corpuscular hemoglobin (mass per erythrocyte) 31 pg 25-34 Automated erythrocyte mean corpuscular hemoglobin concentration measurement ( mass/volume) 34 g/dL 32-36 Automated erythrocyte distribution width ratio 12.6 % 10.0-14.5 Automated blood platelet count (count/volume) 164 10*3/uL 130-400 Automated blood platelet mean volume measurement 11.6 [foz_us] 7.4-10.4 Automated blood neutrophils/100 leukocytes 62 % 42-75 Automated blood lymphocytes/100 leukocytes 28 % 12-44 Blood monocytes/100 leukocytes 9 % 0-12 Automated blood eosinophils/100 leukocytes 1 % 0-10 Automated blood basophils/100 leukocytes 0 % 0-10 Blood neutrophils automated count (number/volume) 8.1 10*3 1.8-7.8 Blood lymphocytes automated count (number/volume) 3.6 10*3 1.0-4.0 Blood monocytes automated count (number/volume) 1.1 10*3 0.0-1.0 Automated eosinophil count 0.2 10*3/uL 0.0-0.3 Automated blood basophil count (count/volume) 0.0 10*3/uL 0.0-0.1 Comprehensive metabolic panel - 11/12/16 02:20 Serum or plasma sodium measurement (moles/volume) 138 mmol/L 135-145 Serum or plasma potassium measurement (moles/volume) 4.0 mmol/L 3.6-5.0 Serum or plasma chloride measurement (moles/volume) 109 mmol/L 98-107 Carbon dioxide 21 mmol/L 21-32 Serum or plasma anion gap determination (moles/volume) 8 mmol/L 5-14 Serum or plasma urea nitrogen measurement (mass/volume) 10 mg/dL 7-18 Serum or plasma creatinine measurement (mass/volume) 0.62 mg/dL 0.60-1.30 Serum or plasma urea nitrogen/creatinine mass ratio 16 NRG Serum or plasma creatinine measurement with calculation of estimated glomerular filtration rate > NRG Serum or plasma glucose measurement (mass/volume) 82 mg/dL 70-105 Serum or plasma calcium measurement (mass/volume) 8.9 mg/dL 8.5-10.1 Serum or plasma total bilirubin measurement (mass/volume) 0.3 mg/dL 0.1-1.0 Serum or plasma alkaline phosphatase measurement (enzymatic activity/volume) 245 U/L 40-136 Serum or plasma aspartate aminotransferase measurement (enzymatic activity/ volume) 17 U/L 5-34 Serum or plasma alanine aminotransferase measurement (enzymatic activity/volume ) 16 U/L 0-55 Serum or plasma protein measurement (mass/volume) 5.9 g/dL 6.4-8.2 Serum or plasma albumin measurement (mass/volume) 3.0 g/dL 3.2-4.5 Serum or plasma uric acid measurement (mass/volume) - 11/12/16 02:20 Serum or plasma uric acid measurement (mass/volume) 6.0 mg/dL 2.6-7.2 Lactate dehydrogenase 1 [enzymatic activity/volume] in serum or plasma - 02:20 Lactate dehydrogenase 1 [enzymatic activity/volume] in serum or plasma 231 U/L 125-220 [id number] - 11/12/16 02:20 [id number] SPECIMEN AVAILABLE NRG Urine protein/creatinine mass ratio - 11/14/16 12:50 Urine protein measurement (mass/volume) < mg/dL 6-12 Urine creatinine measurement (mass/volume) 27 mg/dL 30- 125 Urine protein/creatinine mass ratio TNP NRG Complete urinalysis with reflex to culture - 11/14/16 12:50 Urine color determination YELLOW NRG Urine clarity determination CLEAR NRG Urine pH measurement by test strip 7 5-9 Specific gravity of urine by test strip 1.005 1.016- 1.022 Urine protein assay by test strip, semi-quantitative NEGATIVE NEGATIVE Urine glucose detection by automated test strip NEGATIVE NEGATIVE Erythrocytes detection in urine sediment by light microscopy NEGATIVE NEGATIVE Urine ketones detection by automated test strip NEGATIVE NEGATIVE Urine nitrite detection by test strip NEGATIVE NEGATIVE Urine total bilirubin detection by test strip NEGATIVE NEGATIVE Urine urobilinogen measurement by automated test strip (mass/volume) NORMAL NORMAL Urine leukocyte esterase detection by dipstick 2+ NEGATIVE Automated urine sediment erythrocyte count by microscopy (number/high power field) NONE NRG Automated urine sediment leukocyte count by microscopy (number/high power field ) [HPF] NRG Bacteria detection in urine sediment by light microscopy TRACE NRG Squamous epithelial cells detection in urine sediment by light microscopy 2-5 NRG Crystals detection in urine sediment by light microscopy NONE NRG Casts detection in urine sediment by light microscopy NONE NRG Mucus detection in urine sediment by light microscopy NEGATIVE NRG Complete urinalysis with reflex to culture NO NRG Complete blood count (CBC) with automated white blood cell (WBC) differential - 11/14/16 13:06 Blood leukocytes automated count (number/volume) 11.6 10*3/uL 4.3-11.0 Blood erythrocytes automated count (number/volume) 4.23 10*6/uL 4.35-5.85 Venous blood hemoglobin measurement (mass/volume) 13.1 g/dL 11.5-16.0 Blood hematocrit (volume fraction) 38 % 35-52 Automated erythrocyte mean corpuscular volume 90 [foz_us] 80-99 Automated erythrocyte mean corpuscular hemoglobin (mass per erythrocyte) 31 pg 25-34 Automated erythrocyte mean corpuscular hemoglobin concentration measurement ( mass/volume) 34 g/dL 32-36 Automated erythrocyte distribution width ratio 12.4 % 10.0-14.5 Automated blood platelet count (count/volume) 145 10*3/uL 130-400 Automated blood platelet mean volume measurement 11.2 [foz_us] 7.4-10.4 Automated blood neutrophils/100 leukocytes 66 % 42-75 Automated blood lymphocytes/100 leukocytes 24 % 12-44 Blood monocytes/100 leukocytes 9 % 0-12 Automated blood eosinophils/100 leukocytes 1 % 0-10 Automated blood basophils/100 leukocytes 0 % 0-10 Blood neutrophils automated count (number/volume) 7.6 10*3 1.8-7.8 Blood lymphocytes automated count (number/volume) 2.8 10*3 1.0-4.0 Blood monocytes automated count (number/volume) 1.0 10*3 0.0-1.0 Automated eosinophil count 0.1 10*3/uL 0.0-0.3 Automated blood basophil count (count/volume) 0.0 10*3/uL 0.0-0.1 Comprehensive metabolic panel - 11/14/16 13:06 Serum or plasma sodium measurement (moles/volume) 137 mmol/L 135-145 Serum or plasma potassium measurement (moles/volume) 4.0 mmol/L 3.6-5.0 Serum or plasma chloride measurement (moles/volume) 109 mmol/L 98-107 Carbon dioxide 20 mmol/L 21-32 Serum or plasma anion gap determination (moles/volume) 8 mmol/L 5-14 Serum or plasma urea nitrogen measurement (mass/volume) 5 mg/dL 7-18 Serum or plasma creatinine measurement (mass/volume) 0.63 mg/dL 0.60-1.30 Serum or plasma urea nitrogen/creatinine mass ratio 8 NRG Serum or plasma creatinine measurement with calculation of estimated glomerular filtration rate > NRG Serum or plasma glucose measurement (mass/volume) 71 mg/dL 70-105 Serum or plasma calcium measurement (mass/volume) 9.0 mg/dL 8.5-10.1 Serum or plasma total bilirubin measurement (mass/volume) 0.5 mg/dL 0.1-1.0 Serum or plasma alkaline phosphatase measurement (enzymatic activity/volume) 251 U/L 40-136 Serum or plasma aspartate aminotransferase measurement (enzymatic activity/ volume) 17 U/L 5-34 Serum or plasma alanine aminotransferase measurement (enzymatic activity/volume ) 13 U/L 0-55 Serum or plasma protein measurement (mass/volume) 6.0 g/dL 6.4-8.2 Serum or plasma albumin measurement (mass/volume) 3.1 g/dL 3.2-4.5 Serum or plasma uric acid measurement (mass/volume) - 11/14/16 13:06 Serum or plasma uric acid measurement (mass/volume) 6.4 mg/dL 2.6-7.2 Lactate dehydrogenase 1 [enzymatic activity/volume] in serum or plasma - 13:06 Lactate dehydrogenase 1 [enzymatic activity/volume] in serum or plasma 251 U/L 125-220 Blood type T Indirect antibody screen panel - 11/14/16 13:06 ABO+Rh group BP NRG Transfusion band number [id number] NR Blood group antibody screen NEGATIVE NR Automated blood complete blood count (hemogram) panel - 11/15/16 08:47 Blood leukocytes automated count (number/volume) 12.2 10*3/uL 4.3-11.0 Blood erythrocytes automated count (number/volume) 4.21 10*6/uL 4.35-5.85 Venous blood hemoglobin measurement (mass/volume) 13.0 g/dL 11.5-16.0 Blood hematocrit (volume fraction) 38 % 35-52 Automated erythrocyte mean corpuscular volume 90 [foz_us] 80-99 Automated erythrocyte mean corpuscular hemoglobin (mass per erythrocyte) 31 pg 25-34 Automated erythrocyte mean corpuscular hemoglobin concentration measurement ( mass/volume) 34 g/dL 32-36 Automated erythrocyte distribution width ratio 12.5 % 10.0-14.5 Automated blood platelet count (count/volume) 143 10*3/uL 130-400 Automated blood platelet mean volume measurement 11.4 [foz_us] 7.4-10.4 Comprehensive metabolic panel - 11/15/16 08:47 Serum or plasma sodium measurement (moles/volume) 136 mmol/L 135-145 Serum or plasma potassium measurement (moles/volume) 3.6 mmol/L 3.6-5.0 Serum or plasma chloride measurement (moles/volume) 108 mmol/L 98-107 Carbon dioxide 21 mmol/L 21-32 Serum or plasma anion gap determination (moles/volume) 7 mmol/L 5-14 Serum or plasma urea nitrogen measurement (mass/volume) 6 mg/dL 7-18 Serum or plasma creatinine measurement (mass/volume) 0.58 mg/dL 0.60-1.30 Serum or plasma urea nitrogen/creatinine mass ratio 10 NRG Serum or plasma creatinine measurement with calculation of estimated glomerular filtration rate > NRG Serum or plasma glucose measurement (mass/volume) 93 mg/dL 70-105 Serum or plasma calcium measurement (mass/volume) 8.6 mg/dL 8.5-10.1 Serum or plasma total bilirubin measurement (mass/volume) 0.6 mg/dL 0.1-1.0 Serum or plasma alkaline phosphatase measurement (enzymatic activity/volume) 248 U/L 40-136 Serum or plasma aspartate aminotransferase measurement (enzymatic activity/ volume) 18 U/L 5-34 Serum or plasma alanine aminotransferase measurement (enzymatic activity/volume ) 14 U/L 0-55 Serum or plasma protein measurement (mass/volume) 5.6 g/dL 6.4-8.2 Serum or plasma albumin measurement (mass/volume) 2.9 g/dL 3.2-4.5 Serum or plasma uric acid measurement (mass/volume) - 11/15/16 08:47 Serum or plasma uric acid measurement (mass/volume) 6.2 mg/dL 2.6-7.2 Lactate dehydrogenase 1 [enzymatic activity/volume] in serum or plasma - 08:47 Lactate dehydrogenase 1 [enzymatic activity/volume] in serum or plasma 216 U/L 125-220 Complete blood count (CBC) with automated white blood cell (WBC) differential - 11/16/16 05:20 Blood leukocytes automated count (number/volume) 12.1 10*3/uL 4.3-11.0 Blood erythrocytes automated count (number/volume) 3.76 10*6/uL 4.35-5.85 Venous blood hemoglobin measurement (mass/volume) 11.7 g/dL 11.5-16.0 Blood hematocrit (volume fraction) 34 % 35-52 Automated erythrocyte mean corpuscular volume 90 [foz_us] 80-99 Automated erythrocyte mean corpuscular hemoglobin (mass per erythrocyte) 31 pg 25-34 Automated erythrocyte mean corpuscular hemoglobin concentration measurement ( mass/volume) 35 g/dL 32-36 Automated erythrocyte distribution width ratio 12.4 % 10.0-14.5 Automated blood platelet count (count/volume) 129 10*3/uL 130-400 Automated blood platelet mean volume measurement 11.8 [foz_us] 7.4-10.4 Automated blood neutrophils/100 leukocytes 74 % 42-75 Automated blood lymphocytes/100 leukocytes 17 % 12-44 Blood monocytes/100 leukocytes 8 % 0-12 Automated blood eosinophils/100 leukocytes 1 % 0-10 Automated blood basophils/100 leukocytes 0 % 0-10 Blood neutrophils automated count (number/volume) 8.9 10*3 1.8-7.8 Blood lymphocytes automated count (number/volume) 2.1 10*3 1.0-4.0 Blood monocytes automated count (number/volume) 1.0 10*3 0.0-1.0 Automated eosinophil count 0.1 10*3/uL 0.0-0.3 Automated blood basophil count (count/volume) 0.0 10*3/uL 0.0-0.1 Encounters ACCT No. Visit Date/Time Discharge Status Pt. Type Provider Facility Loc./Unit Complaint [id number] 12/29/2014 09:30:00 12/29/2014 23:59:59 CLS Outpatient EBONY CARRIZALES APRN [id number] 08/28/2013 09:16:00 08/28/2013 23:59:59 CLS Outpatient ALLEBONY Greenfield APRN [id number] 07/18/2013 11:13:00 Document Registration [id number] 09/09/2016 05:06:00 Document Registration [id number] 10/19/2016 13:06:00 Document Registration [id number] 10/27/2016 10:06:00 Document Registration [id number] 10/20/2016 08:06:00 Document Registration [id number] 11/06/2016 07:05:00 Document Registration [id number] 11/10/2016 13:05:00 Document Registration [id number] 08/31/2016 13:06:00 Document Registration [id number] 09/15/2016 18:05:00 Document Registration [id number] 09/18/2016 13:05:00 Document Registration [id number] 10/24/2017 09:05:00 10/24/2017 23:59:59 CLS [facility] [id number] 11/03/2016 13:06:00 Document Registration [id number] 09/03/2016 08:07:00 Document Registration [id number] 10/06/2016 13:06:00 Document Registration [id number] 09/25/2017 21:08:00 09/25/2017 22:01:00 DIS Outpatient ADELA GONZALEZ APRN [facility] ER COUGH/SOB/VOMITING [id number] 01/23/2017 10:45:00 01/23/2017 23:59:59 CLS Preadmit MAURA CHATTERJEE MD [facility] RAD ABNORMAL QUAD SCREN [id number] 11/14/2016 10:45:00 01/22/2017 00:01:00 DIS Outpatient MAURA CHATTERJEE MD [facility] RAD ABNORMAL QUAD SCREN [id number] 11/14/2016 12:39:00 11/17/2016 15:40:00 DIS Inpatient MAURA CHATTERJEE MD [facility] LDRP INDUCTION [id number] 11/12/2016 01:15:00 11/12/2016 10:20:00 DIS Outpatient ARLETH LEVY MD [facility] WSo PAIN,HTN,VOMITING [id number] 11/08/2016 08:20:00 11/08/2016 09:49:00 DIS Emergency RAJAN VALLES MD [facility] ER COUGH/SORE THROAT VOMITING [id number] 10/30/2016 21:25:00 10/30/2016 23:45:00 DIS Outpatient NELSY SWEENEY DO [facility] WSo PAIN [id number] 10/10/2016 11:16:00 10/10/2016 23:59:59 CLS Outpatient MAURA CHATTERJEE MD [facility] RAD ABNORMAL QUAD SCREEN [id number] 09/30/2016 10:36:00 09/30/2016 13:30:00 DIS Emergency ADELA GONZALEZ [employer] [facility] ER VOMITING DENTAL PAIN 32 WKS PREG [id number] 09/16/2016 12:18:00 09/16/2016 23:59:59 CLS Outpatient MAURA CHATTERJEE MD [facility] RAD PLACENTA LOCATION,THIRD TRIMESTER BLEEDING [id number] 09/12/2016 21:20:00 09/12/2016 22:47:00 DIS Out[facility] [id number] 09/06/2016 18:04:00 09/06/2016 22:20:00 DIS Outpatient MAURA CHATTERJEE MD [facility] WSo FALL [id number] 08/05/2016 10:03:00 08/05/2016 23:59:59 CLS Outpatient MAURA CHATTERJEE MD [facility] RAD EVALUATE ANATOMY NOT SEEN ON PRIOR SONOGRAM [id number] 07/13/2016 10:05:00 07/13/2016 23:59:59 CLS Outpatient MAURA CHATTERJEE MD [facility] RAD Z34 [id number] 04/22/2016 16:38:00 04/22/2016 23:59:59 CLS Outpatient MAURA CHATTERJEE MD [facility] RAD STAT UNABLE TO DOPPLER HEART TONES AT REPORTED 20 [id number] 01/25/2016 20:38:00 01/26/2016 01:14:00 DIS Emergency BEVERLY SALTER Via [facility] ER BACK PAIN/ABD PAIN/ VOMITING [id number] 10/30/2015 11:18:00 10/30/2015 12:48:00 DIS Emergency EDDIE ESTRADA, RALPH Moreno Via [facility] ER ABD PAIN [id number] 03/30/2013 11:27:00 03/30/2013 23:59:59 CLS Outpatient [id number] 03/29/2012 19:40:00 Document Registration
--- NOTE | 2018-10-03 11:27 | ED Cough/URI ---
General Chief Complaint: Cough/Cold/Flu Symptoms Stated Complaint: VOMITING;COUGH Nursing Triage Note: C/O SEVERE COUGH WITH DIARRHEA FOR THE LAST WEEK. NO FEVER. CHILLS AT TIMES. THROAT SORE AT TIMES. C/O LOWER ABD CRAMPING Source: patient Exam Limitations: no limitations History of Present Illness Date Seen by Provider: Oct 03, 2018 Time Seen by Provider: 11:24 Initial Comments The patient is a 28 year old female who presents to the emergency room with complaints of a cough, diarrhea lower abdominal pain, and a sore throat for the the past week. She reports that she works at [employer] and was sent home from work and was told she needed a work note to return back. Denies fevers, nausea, or vomiting. Timing/Duration: week Severity/Quality: mild Associated Symptoms: cough, sore throat Allergies and Home Medications Allergies Coded Allergies: No Known Drug Allergies (Unverified , 03/29/12) Home Medications Azithromycin 250 Mg Tablet, 250 MG PO UD TAKE 2 TABLETS ON DAY ONE THEN TAKE 1 TABLET DAILY FOR FOUR MORE DAYS Prescribed by: ADELA GONZALEZ on 09/25/172141 D-Methorphan Hb/P-Epd HCl/Bpm 118 Ml Syrup, 5 ML PO Q4H PRN for COUGH Prescribed by: ADELA GONZALEZ on 09/25/172141 Hydrocodone Bit/Acetaminophen 1 Each Tablet, 1-2 TAB PO Q4H PRN for PAIN Prescribed by: MAURA CHATTERJEE on 11/17/16 1000 Nifedipine 60 Mg Tab.er.24, 60 MG PO DAILY Prescribed by: MAURA CHATTERJEE on 11/17/16 1000 Nitrofurantoin Monohyd/M-Cryst 100 Mg Capsule, 1 TAB PO BID Prescribed by: CLAY RUBIO on 10/03/18 1249 Vit/Iron Fumarate/FA 1 Each Tablet, 1 EACH PO DAILY, (Reported) Patient Home Medication List Home Medication List Reviewed: Yes Review of Systems Review of Systems Constitutional: see HPI, chills; No fever EENTM: see HPI, throat pain Respiratory: see HPI, cough Gastrointestinal: see HPI, abdominal pain, diarrhea All Other Systems Reviewed Negative Unless Noted: Yes Past Vmfdgje-Wpyxbf-Lbndjq Hx Past Med/Social Hx: Reviewed Nursing Past Med/Soc Hx Patient Social History Alcohol Use: Denies Use Recreational Drug Use: No Smoking Status: Current Everyday Smoker Type Used: Cigarettes Former Smoker, Quit: May 07, 2016 Recent Foreign Travel: No Contact w/Someone Who Travel: No Recent Infectious Disease Expo: No Recent Hopitalizations: No Immunizations Up To Date Tetanus Booster (TDap): Unknown PED Vaccines UTD: No Date of Influenza Vaccine: Aug 19, 2016 Seasonal Allergies Seasonal Allergies: Yes Past Medical History Surgeries: No Respiratory: No Cardiac: No Neurological: No Reproductive Disorders: No Sexually Transmitted Disease: No HIV/AIDS: No Gastrointestinal: No Musculoskeletal: No Endocrine: No Cancer: No Psychosocial: Yes Anxiety, Bipolar, Depression Integumentary: No Blood Disorders: No Adverse Reaction/Blood Tranf: No Family Medical History Reviewed Nursing Family Hx Asthma 19 MOTHER G8 SISTER Maternal grandmother Colon cancer Maternal grandfather Paternal grandmother Diabetes mellitus Maternal grandfather Hypertension Maternal grandfather Maternal grandmother No Pertinent Family Hx Physical Exam Vital Signs - First Documented 10/03/18 10:47 Temp 97.0 Pulse 106 Resp 18 B/P (MAP) 129/87 (101) Pulse Ox 98 O2 Delivery Room Air Capillary Refill : Less Than 3 Seconds Height: 6'0.00" Weight: 248lbs. 0.0oz. 112.051204in; 39.2 BMI Method:Stated General Appearance: WD/WN, no apparent distress HEENT: PERRL/EOMI, normal ENT inspection, TMs normal, pharynx normal Respiratory: chest non-tender, lungs clear, normal breath sounds, no respiratory distress, no accessory muscle use, respiratory distress Cardiovascular: normal peripheral pulses, regular rate, rhythm, no edema, no gallop, no JVD, no murmur Gastrointestinal: normal bowel sounds, non tender, soft, no organomegaly, no pulsatile mass Extremities: normal capillary refill Neurologic/Psychiatric: alert, oriented x 3 Skin: normal color, warm/dry Progress/Results/Core Measures Suspected Sepsis Recent Fever Within 48 Hours: No Infection Criteria Present: None New/Unexplained Altered Menta: No Sepsis Screen: No Definite Risk SIRS Temperature:97.0 Pulse: 106 Respiratory Rate: 18 Laboratory Tests 10/03/18 11:20: White Blood Count 10.9 Blood Pressure 129 /87 Mean: 101 Laboratory Tests 10/03/18 11:20: Creatinine 0.75, Platelet Count 200, Total Bilirubin 1.1H Results/Orders Lab Results Laboratory Tests Test 10/03/18 11:20 11/7/18 12:11 Range/Units White Blood Count 10.9 4.3-11.0 10^3/uL Red Blood Count 5.43 4.35-5.85 10^6/uL Hemoglobin 16.8 H 11.5-16.0 G/DL Hematocrit 48 35-52 % Mean Corpuscular Volume 88 80-99 FL Mean Corpuscular Hemoglobin 31 25-34 PG Mean Corpuscular Hemoglobin Concent 35 32-36 G/DL Red Cell Distribution Width 13.1 10.0-14.5 % Platelet Count 200 130-400 10^3/uL Mean Platelet Volume 11.0 H 7.4-10.4 FL Neutrophils (%) (Auto) 67 42-75 % Lymphocytes (%) (Auto) 25 12-44 % Monocytes (%) (Auto) 7 0-12 % Eosinophils (%) (Auto) 2 0-10 % Basophils (%) (Auto) 0 0-10 % Neutrophils # (Auto) 7.2 1.8-7.8 X 10^3 Lymphocytes # (Auto) 2.7 1.0-4.0 X 10^3 Monocytes # (Auto) 0.7 0.0-1.0 X 10^3 Eosinophils # (Auto) 0.2 0.0-0.3 10^3/uL Basophils # (Auto) 0.0 0.0-0.1 10^3/uL Sodium Level 139 135-145 MMOL/L Potassium Level 4.2 3.6-5.0 MMOL/L Chloride Level 107 98-107 MMOL/L Carbon Dioxide Level 24 21-32 MMOL/L Anion Gap 8 5-14 MMOL/L Blood Urea Nitrogen 9 7-18 MG/DL Creatinine 0.75 0.60-1.30 MG/DL Estimat Glomerular Filtration Rate > 60 BUN/Creatinine Ratio 12 Glucose Level 93 70-105 MG/DL Calcium Level 9.8 8.5-10.1 MG/DL Corrected Calcium 9.4 8.5-10.1 MG/DL Total Bilirubin 1.1 H 0.1-1.0 MG/DL Aspartate Amino Transf (AST/SGOT) 27 5-34 U/L Alanine Aminotransferase (ALT/SGPT) 41 0-55 U/L Alkaline Phosphatase 79 40-136 U/L Total Protein 7.6 6.4-8.2 GM/DL Albumin 4.5 3.2-4.5 GM/DL Group A Streptococcus Screen NEGATIVE NEGATIVE Urine Color YELLOW Urine Clarity CLEAR Urine pH 5 5-9 Urine Specific [place] 1.020 1.016-1.022 Urine Protein 1+ H NEGATIVE Urine Glucose (UA) NEGATIVE NEGATIVE Urine Ketones NEGATIVE NEGATIVE Urine Nitrite NEGATIVE NEGATIVE Urine Bilirubin NEGATIVE NEGATIVE Urine Urobilinogen 1 NORMAL MG/DL Urine Leukocyte Esterase 2+ H NEGATIVE Urine RBC (Auto) NEGATIVE NEGATIVE Urine RBC NONE /HPF Urine WBC 10-25 H /HPF Urine Squamous Epithelial Cells 10-25 H /HPF Urine Crystals NONE /LPF Urine Bacteria MODERATE H /HPF Urine Casts NONE /LPF Urine Mucus MODERATE H /LPF Urine Culture Indicated YES Urine Test NEGATIVE NEGATIVE Micro Results Microbiology 10/03/18 Throat Culture - Final, Complete No Beta Strep isolated 10/03/18 Influenza Types A,B Antigen (ISHAAN) - Final, Complete 10/03/18 Urine Culture - Final, Complete See Report My Orders Orders - CLAY RUBIO Influenza A And B Antigens (10/03/18 11:16) Rapid Strep A Screen (10/03/18 11:16) Vital Signs/I&O 10/03/18 10/03/18 10/03/18 10:47 11:28 13:01 Temp 97.0 Pulse 106 87 Resp 18 16 B/P (MAP) 129/87 (101) 129/80 (96) Pulse Ox 98 98 O2 Delivery Room Air Room Air Capillary Refill : Less Than 3 Seconds Blood Pressure Mean: 101 Departure Impression Primary Impression: Upper respiratory infection Additional Impression: Urinary tract infection Disposition: 01 HOME, SELF-CARE Condition: Stable/Unchanged Departure-Patient Inst. Decision time for Depature: 12:46 Referrals: MAURA CHATTERJEE MD (PCP/Family) Primary Care Physician Patient Instructions: Cough, Runny Nose, and the Common Cold (DC), Urinary Tract Infection, Adult (DC) Add. Discharge Instructions: Take medication as directed. Drink plenty of clear liquids like water Continue to use xyxp-qap-ochueuy cold cough and flu medications as directed by the packaging. You may use jscc-qcg-wcuatnm antidiarrheals as directed by the bottle. Follow-up with her primary care provider within 1 week for recheck. Return back to the emergency room for any worsening symptoms or concerns as needed. All discharge instructions reviewed with patient and/or family. Voiced understanding. Scripts Nitrofurantoin Monohyd/M-Cryst (Macrobid 100 mg Capsule) 100 Mg Capsule 1 TAB PO BID for 5 Days, #10 CAP Prov: CLAY RUBIO 10/03/18 Work/School Note: Work Release Form Date Seen in the Emergency Department: Oct 03, 2018 Return to Work: Oct 04, 2018 Restrictions: No Restrictions CLAY RUBIO Oct 03, 2018 11:27
[2018-10-03 11:33] LABS: BASOPHILS % (AUTO) 0 % (0-10); EOSINOPHILS # (AUTO) 0.2 10^3/uL (0.0-0.3); EOSINOPHILS % (AUTO) 2 % (0-10); HEMATOCRIT 48 % (35-52); HEMOGLOBIN 16.8 G/DL (11.5-16.0); LYMPHOCYTES # (AUTO) 2.7 X 10^3 (1.0-4.0); LYMPHOCYTES % (AUTO) 25 % (12-44); MEAN CORPUSCULAR HEMOGLOBIN 31 PG (25-34); MEAN CORPUSCULAR HGB CONC 35 G/DL (32-36); MEAN CORPUSCULAR VOLUME 88 FL (80-99); MONOCYTES # (AUTO) 0.7 X 10^3 (0.0-1.0); MONOCYTES % (AUTO) 7 % (0-12); NEUTROPHILS # (AUTO) 7.2 X 10^3 (1.8-7.8); NEUTROPHILS % (AUTO) 67 % (42-75); PLATELET COUNT 200 10^3/uL (130-400); RED BLOOD COUNT 5.43 10^6/uL (4.35-5.85); RED CELL DISTRIBUTION WIDTH 13.1 % (10.0-14.5); WHITE BLOOD COUNT 10.9 10^3/uL (4.3-11.0)
[2018-10-03 11:56] LABS: ALANINE AMINOTRANSFERASE 41 U/L (0-55); ALBUMIN 4.5 GM/DL (3.2-4.5); ALKALINE PHOSPHATASE 79 U/L (40-136); BILIRUBIN,TOTAL 1.1 MG/DL (0.1-1.0); BUN/CREATININE RATIO 12; CALCIUM 9.8 MG/DL (8.5-10.1); CARBON DIOXIDE 24 MMOL/L (21-32); CHLORIDE 107 MMOL/L (98-107); CREATININE SERUM 0.75 MG/DL (0.60-1.30); GFR ESTIMATED > 60; GLUCOSE 93 MG/DL (70-105); POTASSIUM 4.2 MMOL/L (3.6-5.0); SODIUM 139 MMOL/L (135-145); TOTAL PROTEIN 7.6 GM/DL (6.4-8.2)
[2018-10-03 12:35] LABS: BILIRUBIN,URINE NEGATIVE (NEGATIVE); CLARITY,URINE CLEAR; COLOR,URINE YELLOW; GLUCOSE, URINE (UA) NEGATIVE (NEGATIVE); KETONES,URINE NEGATIVE (NEGATIVE); LEUKOCYTE ESTERASE ,URINE 2+ (NEGATIVE); NITRITE,URINE NEGATIVE (NEGATIVE); PH,URINE 5 (5-9); PROTEIN,URINE 1+ (NEGATIVE); UROBILINOGEN,URINE 1 MG/DL (NORMAL)
[2018-10-03 12:47] LABS: BACTERIA,URINE MODERATE /HPF
[2018-10-03] MEDS ORDERED: NITR-65 PO (12:49)
[2018-10-03 13:01] VITALS: BP 129/80
== END 2018-10-03 13:01 | disposition home or self-care (01) ==
LOC: EDUNIT# 10:02 → ER 10:03
DX: J06.9 Acute upper respiratory infection, unspecified (principal); N39.0 Urinary tract infection, site not specified; F31.9 Bipolar disorder, unspecified; F41.9 Anxiety disorder, unspecified; F17.210 Nicotine dependence, cigarettes, uncomplicated; Z80.0 Family history of malignant neoplasm of digestive organs
CPT/HCPCS: 36415; 80053; 81000; 84703; 85025; 87088; 87430; 87804

== ENCOUNTER 2018-12-10 08:24 | Emergency (ER) | payer SELFPAY ==
[~2018-12-10] VITALS: Ht 182.9 cm; Wt 112.5 kg
[~2018-12-10 08:24] MED LIST changes: +NITR-65 PO
--- OUTSIDE RECORDS SUMMARY | 2018-12-10 08:35 | XMS REPORT | Continuity of Care Document ---
Author Author [facility] Address Unknown Phone Unavailable Allergies Active Description Code Type Severity Reaction Onset Reported/Identified Relationship to Patient Clinical Status Yes No Known Drug Allergies [id number] Drug Allergy Unknown N/A 03/29/2012 Medications There is no data. Problems Date Dx Coded Attending Type Code Diagnosis Diagnosed By 02/22/2011 626.4 IRREGULAR MENSTRUAL CYCLE 02/22/2011 V65.45 STD COUNSELING 02/22/2011 V72.31 FABRIC FINISHER EXAM, ROUTINE 02/22/2011 V74.5 STD SCREEN 02/22/2011 EBONY CARRIZALES APRN 626.4 IRREGULAR MENSTRUAL CYCLE 02/22/2011 EBONY CARRIZALES APRN A V65.45 STD COUNSELING 02/22/2011 EBONY CARRIZALES APRN A V72.31 FABRIC FINISHER EXAM, ROUTINE 02/22/2011 ALL CARRIZALES APRNIDI A V74.5 STD SCREEN 02/22/2011 EBONY CARRIZALES APRN A 626.4 IRREGULAR MENSTRUAL CYCLE 02/22/2011 ALL CARRIZALES APRNIDI A V65.45 STD COUNSELING 02/22/2011 EBONY CARRIZALES APRN A V72.31 FABRIC FINISHER EXAM, ROUTINE 02/22/2011 EBONY CARRIZALES APRN A [...] EBONY CARRIZALES APRN 564.00 CONSTIPATION 07/18/2013 ALL PROCESS CHECKER, EBONY A 789.04 ABDOMINAL PAIN LEFT LOWER [...] GESTATION OF NOT SPEC 09/30/2016 ADELA GONZALEZ PROCESS CHECKER Ot F17.210 NICOTINE DEPENDENCE, CIGARETTES, UNCOMPL 09/30/2016 ADELA GONZALEZ PROCESS CHECKER Ot K04.7 PERIAPICAL ABSCESS WITHOUT SINUS 09/30/2016 ADELA GONZALEZ PROCESS CHECKER Ot O23.43 UNSP INFCT OF URINARY TRACT IN 09/30/2016 ADELA GONZALEZ APRN Ot O26.893 OTH RELATED CONDITIONS, THIRD 09/30/2016 ADELA GONZALEZ PROCESS CHECKER Ot O99.333 SMOKING (TOBACCO) COMPLICATING 09/30/2016 ADELA GONZALEZ PROCESS CHECKER Ot O99.89 OTH DISEASES AND CONDITIONS COMPL PREG/C 09/30/2016 ADELA GONZALEZ PROCESS CHECKER Ot R10.30 LOWER ABDOMINAL PAIN, UNSPECIFIED 09/30/2016 ADELA GONZALEZ APRN Ot R11.2 NAUSEA WITH VOMITING, UNSPECIFIED 09/30/2016 ADELA GONZALEZ APRN Ot Z3A.31 31 WEEKS GESTATION OF 10/03/2016 ADELA GONZALEZ PROCESS CHECKER Ot F17.210 NICOTINE DEPENDENCE, CIGARETTES, UNCOMPL 10/03/2016 [...] LOWER ABDOMINAL PAIN, UNSPECIFIED 10/03/2016 ADELA GONZALEZ PROCESS CHECKER Ot R11.2 NAUSEA WITH VOMITING, UNSPECIFIED 10/03/2016 [...] MD Ot Z37.0 SINGLE LIVE 11/17/2016 MAURA CHATTERJEE MD, Ot Z3A.37 37 WEEKS GESTATION OF [...] F31.9 BIPOLAR DISORDER, UNSPECIFIED 09/27/2017 ADELA GONZALEZ PROCESS CHECKER Ot F41.9 ANXIETY DISORDER, UNSPECIFIED 09/27/2017 ADELA GONZALEZ PROCESS CHECKER Ot J40 BRONCHITIS, NOT SPECIFIED ACUTE OR CH 09/27/2017 ADELA GONZALEZ PROCESS CHECKER Ot R05 COUGH 09/27/2017 ADELA GONZALEZ APRN Ot Z80.0 FAMILY HISTORY OF MALIGNANT NEOPLASM OF 09/27/2017 ADELA GONZALEZ APRN Ot Z87.891 PERSONAL HISTORY OF NICOTINE DEPENDENCE 10/01/2017 ADELA GONZALEZ PROCESS CHECKER Ot F31.9 BIPOLAR DISORDER, UNSPECIFIED 10/01/2017 ADELA GONZALEZ PROCESS CHECKER Ot F41.9 ANXIETY DISORDER, UNSPECIFIED 10/01/2017 ADELA GONZALEZ PROCESS CHECKER Ot J40 BRONCHITIS, NOT SPECIFIED ACUTE OR CH 10/01/2017 ADELA GONZALEZ PROCESS CHECKER Ot R05 COUGH 10/01/2017 ADELA GONZALEZ PROCESS CHECKER Ot Z80.0 FAMILY HISTORY OF MALIGNANT NEOPLASM OF 10/01/2017 ADELA GONZALEZ PROCESS CHECKER Ot Z87.891 PERSONAL HISTORY OF NICOTINE DEPENDENCE 10/05/2018 CLAY RUBIO Ot F17.210 NICOTINE DEPENDENCE, CIGARETTES, UNCOMPL 10/05/2018 CLAY RUBIO Ot F31.9 BIPOLAR DISORDER, UNSPECIFIED 10/05/2018 CLAY RUBIO Ot F41.9 ANXIETY DISORDER, UNSPECIFIED 10/05/2018 CLAY RUBIO Ot J06.9 ACUTE UPPER RESPIRATORY INFECTION, UNSPE 10/05/2018 CLAY RUBIO Ot N39.0 URINARY TRACT INFECTION, SITE NOT SPECIF 10/05/2018 CLAY RUBIO Ot R05 COUGH 10/05/2018 CLAY RUBIO Ot Z80.0 FAMILY HISTORY OF MALIGNANT NEOPLASM OF Procedures Code [place] [address] URINE TEST (IN- HOUSE) 07/18/2013 21183 UA W/ CULTURE IF INDICATED 07/18/2013 [id number] HCG QUALITATIVE W/ REFLEX 07/18/2013 39659 CULTURE UROGENITAL 08/28/2013 13236 GC/CHLAM PROBE (STATE) 08/28/2013 61806 PAP SMEAR 08/28/2013 Q0091 PAP SMEAR OBTAIN SMEAR 08/28/2013 87102 TRICHOMONAS (IN-HOUSE) 08/28/2013 [id number] REPAIR PERINEUM SKIN, EXTERNAL APPROACH 11/15/2016 [id number] DELIVERY OF PRODUCTS OF CONCEPTION, EXTE 11/15/2016 [...] 11:14 Serum or plasma choriogonadotropin measurement (units/volume) 07260 m[iU]/mL <5 Complete urinalysis with reflex to [...] culture - 11/08/16 08:52 Bacterial throat culture [facility] Complete blood count (CBC) with automated white [...] in serum or plasma 231 U/L 125-220 [id number] - 11/12/16 02:20 [id number] SPECIMEN AVAILABLE NRG Urine protein/creatinine mass ratio [...] panel - 11/14/16 13:06 ABO+Rh group BP [facility] Transfusion band number [id number] [facility] Blood group antibody screen NEGATIVE [facility] Automated blood complete blood count (hemogram) panel [...] blood basophil count (count/volume) 0.0 10*3/uL 0.0-0.1 Complete blood count (CBC) with automated white blood cell (WBC) differential - 10/03/18 11:20 Blood leukocytes automated count (number/volume) 10.9 10*3/uL 4.3-11.0 Blood erythrocytes automated count (number/volume) 5.43 10*6/uL 4.35-5.85 Venous blood hemoglobin measurement (mass/volume) 16.8 g/dL 11.5-16.0 Blood hematocrit (volume fraction) 48 % 35-52 Automated erythrocyte mean corpuscular volume 88 [foz_us] 80-99 Automated erythrocyte mean corpuscular hemoglobin (mass per erythrocyte) 31 pg 25-34 Automated erythrocyte mean corpuscular hemoglobin concentration measurement ( mass/volume) 35 g/dL 32-36 Automated erythrocyte distribution width ratio 13.1 % 10.0-14.5 Automated blood platelet count (count/volume) 200 10*3/uL 130-400 Automated blood platelet mean volume measurement 11.0 [foz_us] 7.4-10.4 Automated blood neutrophils/100 leukocytes 67 % 42-75 Automated blood lymphocytes/100 leukocytes 25 % 12-44 Blood monocytes/100 leukocytes 7 % 0-12 Automated blood eosinophils/100 leukocytes 2 % 0-10 Automated blood basophils/100 leukocytes 0 % 0-10 Blood neutrophils automated count (number/volume) 7.2 10*3 1.8-7.8 Blood lymphocytes automated count (number/volume) 2.7 10*3 1.0-4.0 Blood monocytes automated count (number/volume) 0.7 10*3 0.0-1.0 Automated eosinophil count 0.2 10*3/uL 0.0-0.3 Automated blood basophil count (count/volume) 0.0 10*3/uL 0.0-0.1 Streptococcus pyogenes antigen detection - 10/03/18 11:20 Streptococcus pyogenes antigen detection NEGATIVE NEGATIVE Influenza virus A and B antigen detection - 10/03/18 11:20 FLU RESULT NEGATIVE FOR INFLUENZA A AND B ANTIGENS BY IA [facility] Comprehensive metabolic panel - 10/03/18 11:20 Serum or plasma sodium measurement (moles/volume) 139 mmol/L 135-145 Serum or plasma potassium measurement (moles/volume) 4.2 mmol/L 3.6-5.0 Serum or plasma chloride measurement (moles/volume) 107 mmol/L 98-107 Carbon dioxide 24 mmol/L 21-32 Serum or plasma anion gap determination (moles/volume) 8 mmol/L 5-14 Serum or plasma urea nitrogen measurement (mass/volume) 9 mg/dL 7-18 Serum or plasma creatinine measurement (mass/volume) 0.75 mg/dL 0.60-1.30 Serum or plasma urea nitrogen/creatinine mass ratio 12 [facility] Serum or plasma creatinine measurement with calculation of estimated glomerular filtration rate > [facility] Serum or plasma glucose measurement (mass/volume) 93 mg/dL 70-105 Serum or plasma calcium measurement (mass/volume) 9.8 mg/dL 8.5-10.1 Serum or plasma total bilirubin measurement (mass/volume) 1.1 mg/dL 0.1-1.0 Serum or plasma alkaline phosphatase measurement (enzymatic activity/volume) 79 U/L 40-136 Serum or plasma aspartate aminotransferase measurement (enzymatic activity/ volume) 27 U/L 5-34 Serum or plasma alanine aminotransferase measurement (enzymatic activity/volume ) 41 U/L 0-55 Serum or plasma protein measurement (mass/volume) 7.6 g/dL 6.4-8.2 Serum or plasma albumin measurement (mass/volume) 4.5 g/dL 3.2-4.5 CALCIUM CORRECTED 9.4 mg/dL 8.5-10.1 Bacterial throat culture - 10/03/18 11:20 Bacterial throat culture NBS NRG Urine beta human chorionic gonadotropin (hCG) measurement - 10/03/18 12:11 Urine beta human chorionic gonadotropin (hCG) measurement NEGATIVE NEGATIVE Complete urinalysis with reflex to culture - 10/03/18 12:11 Urine color determination YELLOW NRG Urine clarity determination CLEAR NRG Urine pH measurement by test strip 5 5-9 Specific gravity of urine by test [...] urine sediment by light microscopy MODERATE NRG Complete urinalysis with reflex to culture YES NRG Bacterial urine culture - 10/03/18 12:11 Bacterial urine culture SEE REPORT NRG COLONY COUNT . NRG Encounters ACCT No. Visit Date/Time Discharge Status Pt. Type Provider Facility Loc./Unit Complaint [id number] 12/29/2014 09:30:00 12/29/2014 23:59:59 CLS Outpatient EBONY CARRIZALES APRN [id number] 08/28/2013 09:16:00 08/28/2013 23:59:59 CLS Outpatient EBONY CARRIZALES APRN [id number] 07/18/2013 11:13:00 Document Registration [id number] 09/09/2016 05:06:00 Document Registration [id number] 10/19/2016 13:06:00 Document Registration [id number] 10/27/2016 10:06:00 Document Registration [id number] 10/20/2016 08:06:00 Document Registration [id number] 11/06/2016 07:05:00 Document Registration [id number] 11/10/2016 13:05:00 Document Registration [id number] 08/31/2016 13:06:00 Document Registration [id number] 09/15/2016 18:05:00 Document Registration [id number] 09/18/2016 13:05:00 Document Registration [id number] 10/24/2017 09:05:00 10/24/2017 23:59:59 CLS Outpatient DEQUAN MOSQUERA [facility] [id number] 11/03/2016 13:06:00 Document Registration [id number] 09/03/2016 08:07:00 Document Registration [id number] 10/06/2016 13:06:00 Document Registration [id number] 10/03/2018 10:03:00 10/03/2018 13:01:00 DIS Outpatient CLAY RUBIO Via [facility] ER VOMITING;COUGH [id number] 09/25/2017 21:08:00 09/25/2017 22:01:00 DIS Outpatient ADELA GONZALEZ APRN Via [facility] ER COUGH/SOB/VOMITING [id number] 01/23/2017 10:45:00 01/23/2017 23:59:59 CLS Preadmit MAURA CHATTERJEE MD Via [facility] RAD ABNORMAL QUAD SCREN [id number] 11/14/2016 10:45:00 01/22/2017 00:01:00 DIS Outpatient MAURA CHATTERJEE MD Via [facility] RAD ABNORMAL QUAD SCREN [id number] 11/14/2016 12:39:00 11/17/2016 15:40:00 DIS Inpatient MAURA CHATTERJEE MD Via [facility] LDRP INDUCTION [id number] 11/12/2016 01:15:00 11/12/2016 10:20:00 DIS Outpatient ARLETH LEVY MD Via [facility] WSo PAIN,HTN,VOMITING [id number] 11/08/2016 08:20:00 11/08/2016 09:49:00 DIS Emergency RAJAN VALLES MD Via [facility] ER COUGH/SORE THROAT VOMITING [id number] 10/30/2016 21:25:00 10/30/2016 23:45:00 DIS Outpatient NELSY SWEENEY DO Via [facility] WSo PAIN [id number] 10/10/2016 11:16:00 10/10/2016 23:59:59 CLS Outpatient MAURA CHATTERJEE MD Via [facility] RAD ABNORMAL QUAD SCREEN [id number] 09/30/2016 10:36:00 09/30/2016 13:30:00 DIS Emergency ADELA GONZALEZ APRN Via [facility] ER VOMITING DENTAL PAIN 32 WKS PREG [id number] 09/16/2016 12:18:00 09/16/2016 23:59:59 CLS Outpatient MAURA CHATTERJEE MD Via [facility] RAD PLACENTA LOCATION,THIRD TRIMESTER BLEEDING [id number] 09/12/2016 21:20:00 09/12/2016 22:47:00 DIS Outpatient [facility] [id number] 09/06/2016 18:04:00 09/06/2016 22:20:00 DIS Outpatient MAURA CHATTERJEE MD Via [facility] WSo FALL [id number] 08/05/2016 10:03:00 08/05/2016 23:59:59 CLS Outpatient MAURA CHATTERJEE MD Via [facility] RAD EVALUATE ANATOMY NOT SEEN ON PRIOR SONOGRAM [id number] 07/13/2016 10:05:00 07/13/2016 23:59:59 CLS Outpatient MAURA CHATTERJEE MD Via [facility] RAD Z34 [id number] 04/22/2016 16:38:00 04/22/2016 23:59:59 CLS Outpatient MAURA CHATTERJEE MD Via [facility] RAD STAT UNABLE TO DOPPLER HEART TONES AT REPORTED 20 [id number] 01/25/2016 20:38:00 01/26/2016 01:14:00 DIS Emergency BEVERLY SALTER Via [facility] ER BACK PAIN/ABD PAIN/ VOMITING [id number] 10/30/2015 11:18:00 10/30/2015 12:48:00 DIS Emergency RALPH MORGAN MD Via [facility] ER ABD PAIN [id number] 03/30/2013 11:27:00 03/30/2013 23:59:59 [facility] Outpatient [id number] 03/29/2012 19:40:00 Document Registration
[2018-12-10] MEDS ORDERED: ONDANSETRON 4 MG (ZOFRAN) ORAL DISSOLVE TAB PO ONE (08:45)
[2018-12-10] MEDS ORDERED: ONDA4TAB11 PO (08:47)
--- NOTE | 2018-12-10 08:47 | ED Cough/URI ---
General Chief Complaint: Abdominal/GI Problems Stated Complaint: N/V/D;COUGH Source: patient Exam Limitations: no limitations History of Present Illness Date Seen by Provider: Dec 10, 2018 Time Seen by Provider: 08:34 Initial Comments Patient presents to ER by private conveyance with chief complaint she was sent home from work because of nausea and vomiting. She's been having a cough for the past 2-3 weeks. She's been having vomiting and diarrhea for the past 3 or 4 days. She says both of her children and her roommate's children and her roommates as well have all been sick with the same kind of viral complaint for the past couple weeks and they've all been spreading back and forth to each other. She's been using Lysol and sanitation wipes around the house. She's had no fevers or chills. She's had occasional bronchitis but no history of asthma COPD. She does smoke cigarettes but she's reduced recently. She has no other significant medical history, abdominal pain or abdominal surgeries. She's not used anything to stop the diarrhea. She has cough drops at home but she's been using with good effect. Allergies and Home Medications Allergies Coded Allergies: No Known Drug Allergies (Unverified , 03/29/12) Home Medications Azithromycin 250 Mg Tablet, 250 MG PO UD TAKE 2 TABLETS ON DAY ONE THEN TAKE 1 TABLET DAILY FOR FOUR MORE DAYS Prescribed by: ADELA GONZALEZ on 09/25/172141 D-Methorphan Hb/P-Epd HCl/Bpm 118 Ml Syrup, 5 ML PO Q4H PRN for COUGH Prescribed by: ADELA GONZALEZ on 09/25/172141 Hydrocodone Bit/Acetaminophen 1 Each Tablet, 1-2 TAB PO Q4H PRN for PAIN Prescribed by: MAURA CHATTERJEE on 11/17/16 1000 Nifedipine 60 Mg Tab.er.24, 60 MG PO DAILY Prescribed by: MAURA CHATTERJEE on 11/17/16 1000 Nitrofurantoin Monohyd/M-Cryst 100 Mg Capsule, 1 TAB PO BID Prescribed by: CLAY RUBIO on 10/03/18 1249 Vit/Iron Fumarate/FA 1 Each Tablet, 1 EACH PO DAILY, (Reported) Patient Home Medication List Home Medication List Reviewed: Yes Review of Systems Review of Systems Constitutional: No chills, No diaphoresis; malaise EENTM: No ear discharge, No ear pain Respiratory: cough, phlegm; No short of breath, No wheezing Cardiovascular: No chest pain, No edema Gastrointestinal: No abdominal pain, No constipation; diarrhea, nausea, vomiting Genitourinary: No discharge, No dysuria : No LMP: Nov 12, 2018 Musculoskeletal: No back pain, No joint pain Skin: No pruritus, No rash Past Rdnvaav-Dzrnxc-Jkonyc Hx Patient Social History Alcohol Use: Denies Use Recreational Drug Use: No Smoking Status: Current Everyday Smoker Type Used: Cigarettes Recent Hopitalizations: No Immunizations Up To Date Tetanus Booster (TDap): Unknown PED Vaccines UTD: No Date of Influenza Vaccine: Aug 19, 2016 Seasonal Allergies Seasonal Allergies: Yes Past Medical History Surgeries: No Respiratory: No Cardiac: No Neurological: No Reproductive Disorders: No Sexually Transmitted Disease: No HIV/AIDS: No Gastrointestinal: No Musculoskeletal: No Endocrine: No Cancer: No Psychosocial: Yes Anxiety, Bipolar, Depression Integumentary: No Blood Disorders: No Adverse Reaction/Blood Tranf: No Family Medical History Asthma 19 MOTHER G8 SISTER Maternal grandmother Colon cancer Maternal grandfather Paternal grandmother Diabetes mellitus Maternal grandfather Hypertension Maternal grandfather Maternal grandmother No Pertinent Family Hx Physical Exam Capillary Refill : Height: 6'0.00" Weight: 248lbs. 0.0oz. 112.569212me; 39.2 BMI Method:Stated General Appearance: WD/WN, no apparent distress Eyes: Bilateral Eye Normal Inspection, Bilateral Eye PERRL, Bilateral Eye EOMI HEENT: PERRL/EOMI, normal ENT inspection, TMs normal, pharynx normal Neck: non-tender, full range of motion, supple, normal inspection Respiratory: chest non-tender, lungs clear, normal breath sounds, no respiratory distress, no accessory muscle use Cardiovascular: normal peripheral pulses, regular rate, rhythm, no edema Gastrointestinal: normal bowel sounds, non tender, soft Extremities: no pedal edema, normal capillary refill Neurologic/Psychiatric: alert, normal mood/affect, oriented x 3 Skin: normal color, warm/dry Progress/Results/Core Measures Suspected Sepsis SIRS Temperature: Pulse: Respiratory Rate: Blood Pressure / Mean: Results/Orders My Orders Orders - JUSTYNA NUÑEZ Ondansetron Oral Dissolve Tab (Zofran (12/10/18 08:45) Vital Signs/I&O Capillary Refill : Progress Note : Time: 08:44 Progress Note Patient does not have an acute abdomen nor she febrile, tachycardic, tachypneic nor having any wheezing or crackles auscultated. And treat this like the most likely cause being a virus encourage her to use good disinfectants, cough medicine, vapor rubs etc. We'll provide her with some nausea medicine and encourage her to use Imodium since she's been having diarrhea for 3 days. Departure Impression Primary Impression: Viral URI with cough Additional Impression: Gastroenteritis and colitis, viral Disposition: 01 HOME, SELF-CARE Condition: Stable Departure-Patient Inst. Decision time for Depature: 08:45 Referrals: MAURA CHATTERJEE MD (PCP/Family) Primary Care Physician Patient Instructions: Viral Gastroenteritis, Adult (DC), Viral Upper Respiratory Infection, Adult (DC) Add. Discharge Instructions: For your cough use humidifiers, vapor rubs such as Vicks or Mentholatum, hot tea with lemon or honey, cough drops, throat lozenges. You can also use Tylenol and/or Motrin for body aches or chills. Drink plenty of fluids. Use the Zofran 1 tablet every 6 hours under the tongue and allowed to absorb your mouth as necessary if you have nausea or vomiting. If her diarrhea persists take 2 tablets of Imodium followed by one more tablet every 4 hours if you still have watery diarrhea. If your symptoms are not resolving the next 7-10 days follow- up with primary care for reevaluation. All discharge instructions reviewed with patient and/or family. Voiced understanding. Scripts Ondansetron (Ondansetron Odt) 4 Mg Tab.rapdis 4 MG PO Q6H PRN for NAUSEA/VOMITING, #8 TAB 0 Refills Prov: JUSTYNA NUÑEZ 12/10/18 Work/School Note: Work Release Form Date Seen in the Emergency Department: Dec 10, 2018 Return to Work: Dec 13, 2018 Restrictions: No Restrictions JUSTYNA NUÑEZ Dec 10, 2018 08:47
[2018-12-10 08:55] VITALS: BP 141/101
== END 2018-12-10 08:55 | disposition home or self-care (01) ==
LOC: EDUNIT# 08:24 → ER 08:25
DX: J06.9 Acute upper respiratory infection, unspecified (principal); A08.4 Viral intestinal infection, unspecified; F41.9 Anxiety disorder, unspecified; F31.9 Bipolar disorder, unspecified; F17.210 Nicotine dependence, cigarettes, uncomplicated; Z87.09 Personal history of other diseases of the respiratory system; Z80.0 Family history of malignant neoplasm of digestive organs; Z82.49 Family history of ischemic heart disease and other diseases of the circulatory system
CPT/HCPCS: 99283

== ENCOUNTER 2019-05-08 08:52 | Emergency (ER) | payer OTHER ==
[~2019-05-08] VITALS: Ht 182.9 cm; Wt 115.2 kg
[~2019-05-08 08:52] MED LIST changes: +ONDA4TAB11 PO
[2019-05-08] MEDS ORDERED: KETOROLAC 60 MG/2 ML VIAL IM STA (09:30)
[2019-05-08] MEDS ORDERED: DEXAMETHASONE 10 MG/ML (DECADRON) 1 ML VIAL IM ONE (09:30)
--- NOTE | 2019-05-08 09:37 | ED EENT ---
History of Present Illness General Chief Complaint: Ear Problems Stated Complaint: L EAR PAIN Nursing Triage Note: Pt reports L ear pain that began on Monday. Pt reports tinnitus, and hearing loss. Pt reports hx of allergies. Pt reports taking IBU and zyrtec [employer]. Source: patient Exam Limitations: no limitations History of Present Illness Date Seen by Provider: May 08, 2019 Time Seen by Provider: 09:21 Initial Comments Here with complaint of left ear pain over the last 3-4 days. States that she has decreased hearing in the left ear. She's been using [id number] earwax drops and that's not helping. She does have history of allergies and has been taking Zyrtec [id number]. She has been taking ibuprofen at nighttime for the pain. Denies fever or chills. Denies nausea or vomiting. Timing/Duration: gradual Severity: moderate Location: ear (L), nose Prearrival Treatment: over the counter meds Modifying Factors: Improves With Rest Associated Symptoms: No cough, No ear drainage, No facial pain/swelling, No fever; nasal congestion/drainage; No sinus infection Allergies and Home Medications Allergies Coded Allergies: No Known Drug Allergies (Unverified , 03/29/12) Home Medications Azithromycin 250 Mg Tablet, 250 MG PO UD TAKE 2 TABLETS ON DAY ONE THEN TAKE 1 TABLET DAILY FOR FOUR MORE DAYS Prescribed by: ADELA GONZALEZ on 09/25/172141 D-Methorphan Hb/P-Epd HCl/Bpm 118 Ml Syrup, 5 ML PO Q4H PRN for COUGH Prescribed by: ADELA GONZALEZ on 09/25/172141 Hydrocodone Bit/Acetaminophen 1 Each Tablet, 1-2 TAB PO Q4H PRN for PAIN Prescribed by: MAURA CHATTERJEE on 11/17/16 1000 Nifedipine 60 Mg Tab.er.24, 60 MG PO DAILY Prescribed by: MAURA CHATTERJEE on 11/17/16 1000 Nitrofurantoin Monohyd/M-Cryst 100 Mg Capsule, 1 TAB PO BID Prescribed by: CLAY RUBIO on 10/03/18 1249 Ondansetron 4 Mg Tab.rapdis, 4 MG PO Q6H PRN for NAUSEA/VOMITING Prescribed by: UJSTYNA NUÑEZ on 12/10/18 0847 Vit/Iron Fumarate/FA 1 Each Tablet, 1 EACH PO DAILY, (Reported) Patient Home Medication List Home Medication List Reviewed: Yes Review of Systems Review of Systems Constitutional: see HPI Eyes: No Symptoms Reported Ears: Pain; Denies Bloody Discharge Nose: congestion; denies bloody discharge Mouth: no symptoms reported Throat: no symptoms reported Respiratory: cough; No short of breath Cardiovascular: no symptoms reported Gastrointestinal: no symptoms reported Past Goirlle-Xtfitm-Lyrspc Hx Past Med/Social Hx: Reviewed Nursing Past Med/Soc Hx Patient Social History Alcohol Use: Denies Use Recreational Drug Use: No Smoking Status: Current Everyday Smoker Type Used: Cigarettes Former Smoker, Quit: May 07, 2016 2nd Hand Smoke Exposure: Yes Recent Foreign Travel: No Contact w/Someone Who Travel: No Recent Infectious Disease Expo: No Recent Hopitalizations: No Immunizations Up To Date Tetanus Booster (TDap): Unknown PED Vaccines UTD: No Date of Influenza Vaccine: Aug 19, 2016 Seasonal Allergies Seasonal Allergies: Yes Past Medical History Surgeries: No Respiratory: No Cardiac: Yes Hypertension Neurological: No Reproductive Disorders: No Sexually Transmitted Disease: No HIV/AIDS: No Gastrointestinal: No Musculoskeletal: No Endocrine: No Cancer: No Psychosocial: Yes Anxiety, Bipolar, Depression Integumentary: No Blood Disorders: No Adverse Reaction/Blood Tranf: No Family Medical History Reviewed Nursing Family Hx Asthma 19 MOTHER G8 SISTER Maternal grandmother Colon cancer Maternal grandfather Paternal grandmother Diabetes mellitus Maternal grandfather Hypertension Maternal grandfather Maternal grandmother No Pertinent Family Hx Physical Exam Vital Signs Vital Signs - First Documented 05/08/19 09:12 Temp 97.7 Pulse 95 Resp 16 B/P (MAP) 138/113 (121) Pulse Ox 99 O2 Delivery Room Air Height, Weight, BMI Height: 6'0" Weight: 254lbs. 0.0oz. 115.932991df; 39.2 BMI Method:Stated General Appearance: WD/WN, no apparent distress Eyes: bilateral eye normal inspection, bilateral eye PERRL, bilateral eye EOMI Ears: bilateral ear other (cerumen impaction bilateral. Peaked TM on the right shows it to be normal unable to visualize left TM.) Nose: other (moderate bilateral nasal congestion with clear rhinorrhea moderate erythema) Mouth/Throat: No pharynx swelling; other (pharyngeal erythema) Neck: full range of motion, supple Cardiovascular: regular rate, rhythm, no murmur Respiratory: lungs clear, normal breath sounds, other (coarse sounds with cough) Neurologic/Psychiatric: alert, oriented x 3 Skin: normal color, warm/dry Progress/Results/Core Measures Results/Orders My Orders Orders - RAJAN VALLES MD Dexamethasone Injection (Decadron Inject (05/08/19 09:30) Toradol 60 Mg Im (05/08/19 09:30) Vital Signs/I&O 05/08/19 09:12 Temp 97.7 Pulse 95 Resp 16 B/P (MAP) 138/113 (121) Pulse Ox 99 O2 Delivery Room Air Blood Pressure Mean: 121 Progress Progress Note : Progress Note Seen and evaluated. Decadron 10 mg IM. Toradol 60 mg IM. Discharged home with return precautions and patient verbalize understanding instructions and agreement with plan. Instructed to follow-up with her doctor regarding blood pressure evaluation she reported intent to comply. Departure Impression Primary Impression: Upper respiratory infection Qualified Codes: J06.9 - Acute upper respiratory infection, unspecified Additional Impression: Left ear pain Disposition: HOME, SELF-CARE Condition: Stable Departure-Patient Inst. Decision time for Depature: 09:37 Referrals: MAURA CHATTERJEE MD (PCP/Family) Primary Care Physician Patient Instructions: Ear Wax Impaction (DC), Bacterial Upper Respiratory Infection, Adult (DC) Add. Discharge Instructions: All discharge instructions reviewed with patient and/or family. Voiced understanding. You may take ibuprofen 800 mg every 8 hours as needed for pain. You may also take Tylenol/acetaminophen 1000 mg every 8 hours as needed for pain. You may use [id number] Debrox or similar earwax removal drops per package directions. You need to follow-up with your doctor regarding your blood pressure. Take other medications as directed. Return for worse pain, fever, vomiting, weakness, breathing problems or other concerns as needed. Scripts Amoxicillin (Amoxicillin) 500 Mg Capsule 1000 MG PO TID, #42 CAP 0 Refills Prov: RAJAN VALLES MD 05/08/19 Work/School Note: Work Release Form Date Seen in the Emergency Department: May 08, 2019 Return to Work: May 09, 2019 Restrictions: No Restrictions RAJAN VALLES MD May 08, 2019 09:37
[2019-05-08] MEDS ORDERED: AMOX500C2 PO (09:47)
[2019-05-08 09:54] VITALS: BP 149/112
== END 2019-05-08 09:54 | disposition home or self-care (01) ==
LOC: EDUNIT# 08:52 → ER 08:54
DX: J06.9 Acute upper respiratory infection, unspecified (principal); H92.02 Otalgia, left ear; I10 Essential (primary) hypertension; F41.9 Anxiety disorder, unspecified; F31.9 Bipolar disorder, unspecified; Z87.891 Personal history of nicotine dependence; Z80.0 Family history of malignant neoplasm of digestive organs; Z82.49 Family history of ischemic heart disease and other diseases of the circulatory system
CPT/HCPCS: 96372; 99284

== ENCOUNTER 2019-10-25 05:35 | Emergency (ER) | payer SELFPAY ==
[~2019-10-25] VITALS: Ht 183 cm; Wt 106.8 kg
[2019-10-25] MEDS ORDERED: FLUO90CA4 PO (05:51)
--- NOTE | 2019-10-25 05:58 | ED Cough/URI ---
General Chief Complaint: Cough/Cold/Flu Symptoms Stated Complaint: CONGESTION,RUNNY NOSE,POSS FEVER,SORE THROAT Source: patient Exam Limitations: no limitations History of Present Illness Date Seen by Provider: Oct 25, 2019 Time Seen by Provider: 05:45 Initial Comments Patient presents ER by her conveyance with chief complaint for the past 3 weeks she's had a nonproductive cough and last several days she's had a fever Tmax 102. Using ibuprofen. She had a nonproductive cough she smokes about a half a pack cigarettes per day. She has body aches. Several sick people in her household right now. Both her children were diagnosed with bronchitis recently. No history of wheezing, asthma, COPD. Allergies and Home Medications Allergies Coded Allergies: diphenhydramine (Verified Allergy, Unknown, 10/25/19) Home Medications Albuterol Sulfate 1 Puff Puff, 2 PUFF IH Q4H PRN for COUGH 1 PUFF = 90 MCG Prescribed by: JUSTYNA NUÑEZ on 10/25/19601 Benzonatate 100 Mg Capsule, 100 MG PO Q6H PRN for COUGH Prescribed by: JUSTYNA NUÑEZ on 10/25/19 0602 Patient Home Medication List Home Medication List Reviewed: Yes Review of Systems Review of Systems Constitutional: chills, fever, malaise EENTM: No ear pain, No eye pain Respiratory: cough; No phlegm, No short of breath, No wheezing Cardiovascular: No chest pain, No edema Gastrointestinal: No abdominal pain, No constipation, No nausea Genitourinary: No discharge, No dysuria Musculoskeletal: No back pain, No joint pain All Other Systems Reviewed Negative Unless Noted: Yes Past Ezdmqvy-Noelyp-Ytfzkb Hx Patient Social History Alcohol Use: Denies Use Recreational Drug Use: No Smoking Status: Current Everyday Smoker Type Used: Cigarettes 2nd Hand Smoke Exposure: Yes Recent Foreign Travel: No Contact w/Someone Who Travel: No Recent Hopitalizations: No Immunizations Up To Date Tetanus Booster (TDap): Unknown PED Vaccines UTD: No Date of Influenza Vaccine: Aug 19, 2016 Seasonal Allergies Seasonal Allergies: Yes Past Medical History Surgeries: No Respiratory: No Cardiac: Yes Hypertension Neurological: No Reproductive Disorders: No Sexually Transmitted Disease: No HIV/AIDS: No Gastrointestinal: No Musculoskeletal: No Endocrine: No Cancer: No Psychosocial: Yes Anxiety, Bipolar, Depression Integumentary: No Blood Disorders: No Adverse Reaction/Blood Tranf: No Family Medical History Asthma 19 MOTHER G8 SISTER Maternal grandmother Colon cancer Maternal grandfather Paternal grandmother Diabetes mellitus Maternal grandfather Hypertension Maternal grandfather Maternal grandmother No Pertinent Family Hx Physical Exam Vital Signs - First Documented Capillary Refill : Height: 6'0" Weight: 254lbs. 0.0oz. 115.394117rp; 39.2 BMI Method:Stated General Appearance: WD/WN, no apparent distress Eyes: Bilateral Eye Normal Inspection, Bilateral Eye PERRL, Bilateral Eye EOMI HEENT: PERRL/EOMI, TMs normal, pharyngeal erythema; No tonsillar exudate Neck: full range of motion, supple, normal inspection Respiratory: lungs clear, normal breath sounds, no respiratory distress, no accessory muscle use Cardiovascular: normal peripheral pulses, regular rate, rhythm Neurologic/Psychiatric: alert, normal mood/affect, oriented x 3 Skin: normal color, warm/dry Progress/Results/Core Measures Suspected Sepsis SIRS Temperature: Pulse: Respiratory Rate: Blood Pressure / Mean: Results/Orders Lab Results Laboratory Tests Test 10/25/19 05:47 Range/Units Group A Streptococcus Screen NEGATIVE NEGATIVE Micro Results Microbiology 10/25/19 Influenza Types A,B Antigen (ISHAAN) - Final, Complete My Orders Orders - JUSTYNA NUÑEZ Influenza A And B Antigens (10/25/19 05:50) Rapid Strep A Screen (10/25/19 05:50) Vital Signs/I&O 10/25/19 10/25/19 05:45 05:45 Temp 36.8 Pulse 79 Resp 18 B/P (MAP) 129/71 (90) Pulse Ox 100 O2 Delivery Room Air Room Air Capillary Refill : Progress Note : Time: 05:58 Progress Note Rapid influenza and strep Departure Impression Primary Impression: Bronchitis Disposition: 01 HOME, SELF-CARE Condition: Stable Departure-Patient Inst. Decision time for Depature: 06:29 Referrals: MAURA CHATTERJEE MD (PCP/Family) Primary Care Physician Patient Instructions: Bronchiolitis (DC) Add. Discharge Instructions: Drink plenty of fluids. Hot tea with honey and lemon can be helpful. Use a humi difier and vapor rubs such as Vicks or Mentholatum. Tylenol and ibuprofen as necessary for fever or body aches. Tessalon Perles 1 capsule every 6 hours as needed for coughing. If you have coughing fits you may also try 2 puffs of Proventil every 4 hours as needed. All discharge instructions reviewed with patient and/or family. Voiced understanding. Scripts Albuterol Sulfate (PROAIR HFA) 1 Puff Puff 2 PUFF IH Q4H PRN for COUGH, #1 EA 0 Refills 1 PUFF = 90 MCG Prov: JUSTYNA NUÑEZ 10/25/19 Benzonatate (TESSALON PERLES) 100 Mg Capsule 100 MG PO Q6H PRN for COUGH, #30 CAP 0 Refills Prov: JUSTYNA NUÑEZ 10/25/19 Work/School Note: Work Release Form Date Seen in the Emergency Department: Oct 25, 2019 Return to Work: Oct 28, 2019 Restrictions: No Restrictions JUSTYNA NUÑEZ Oct 25, 2019 05:58 POS
[2019-10-25] MEDS ORDERED: BENZ100C18 PO (06:02)
[2019-10-25] MEDS ORDERED: RT-ALBUINH IH (06:02)
[2019-10-25 06:30] VITALS: BP 129/71
== END 2019-10-25 06:31 | disposition home or self-care (01) ==
LOC: EDUNIT# 05:35 → ER 05:39
DX: J40 Bronchitis, not specified as acute or chronic (principal); I10 Essential (primary) hypertension; F31.9 Bipolar disorder, unspecified; F41.9 Anxiety disorder, unspecified; F17.210 Nicotine dependence, cigarettes, uncomplicated; Z82.49 Family history of ischemic heart disease and other diseases of the circulatory system; Z88.8 Allergy status to other drugs, medicaments and biological substances; Z80.0 Family history of malignant neoplasm of digestive organs
CPT/HCPCS: 87430; 87804

== ENCOUNTER 2020-04-20 10:36 | Emergency (ER) | payer SELFPAY ==
[~2020-04-20] VITALS: Ht 177 cm; Wt 106.8 kg
[~2020-04-20 10:36] MED LIST changes: +BENZ100C18 PO; +FLUO90CA4 PO; +NIFE-24 PO; -NIFE60TA64 PO; -TRAM50TA2 PO; +TRM50T PO
--- OUTSIDE RECORDS SUMMARY | 2020-04-20 10:43 | XMS REPORT ---
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 [id number] [facility] Real Time Content [facility] Address [address] [address] Care Team Providers Care Mounter Smoking Pipe Name Role Phone SEN, MAURA Unavailable Unavailable SEN, MAURA Unavailable SEN, MAURA Unavailable SEN, MAURA N Unavailable NO, LOCAL PHYSICIAN Unavailable Unavailable SEN, MAURA Unavailable SEN, MAURA Unavailable SEN, MAURA Unavailable SEN, MAURA Unavailable SEN, MAURA Unavailable MICHEL ECHOLS Unavailable MICHEL ECHOLS Unavailable MICHEL ECHOLS Unavailable MICHEL ECHOLS Unavailable MICHEL ECHOLS Unavailable SEN, MAURA Unavailable SEN, MAURA Unavailable SEN, MAURA Unavailable SEN, MAURA N Unavailable SEN, MAURA Unavailable SEN, MAURA Unavailable LIYA CAPUTO Unavailable ADELA GONZALEZ APRN Unavailable Unavailable NELSY SWEENEY DO Unavailable Unavailable SEN GRANT ESTRADAY N Unavailable Unavailable GRANT CHATTERJEE MDY N Unavailable Unavailable SEN, MAURA N Unavailable Migration, Doctor Unavailable Unavailable ARLETH LEVY MD Unavailable Unavailable SEN, MAURA N PCP PCP, OUTSIDE Unavailable Unavailable zzHEIMAN, EBONY Unavailable BEVERLY SALTER Unavailable Unavailable EDDIE ESTRADA, RALPH Moreno Unavailable Unavailable zzHEIMAN, EBONY Unavailable zzHEIMAN, EBONY Unavailable HAI ESTRADA, RAJAN Guerrero Unavailable Unavailable MAURA CHATTERJEE MD Unavailable Unavailable MAURA CHATTERJEE PCP JUSTYNA NUÑEZ Unavailable Unavailable ANDREA ESTRADA, LUIS Grant Unavailable Unavailable SENMAURA HANCOCK Unavailable Unavailable Unavailable Unavailable zzHEIMAN, EBONY Unavailable zzHEIMAN, EBONY Unavailable zzHEIMAN, EBONY Unavailable Unavailable Unavailable Unavailable Unavailable Unavailable Unavailable Unavailable Unavailable Unavailable Unavailable Allergies Normalized Allergy Reported Date of Reaction(s) Care Provider Facility Allergy Type classification allergen Allergy Onset Drug Allergy diphenhydrAMIN diphenhydrAMIN 10-25-2019 - no infor linnette CHATTERJEE [facility] Via (4 sources.) MD Sachi Ware Translations: Translations: Hospital - [ Allergy to [ [place] substance] diphenhydramin (29595) e ([id number])] DA (16 Unclassified No Known Drug 03-29-2012 - no information RALPH MORGAN , Not Available sources.) Allergies (56677) Medications Medication Ingredient Drug Dose Dates Status Sig Sig Care Class(es) (Normalized) (Original) Provid er no Albuterol no 8.5 g 01-26-20 Complete take 8.5 g Albu terol Fatou information Sulfate information 16 - d by Sulfate en L (2 (Proair 09-06-20 inhalation (Proair Hfa) Chris sources.) Hfa) 8.5 Gm 16 every four 8.5 Gm (no Hfa.aer.ad, hours as Hfa.aer.ad, phone) 2 Puff needed 2 Puff Respiratory Respiratory (Inhalation (Inhalation) ) Every 4HRS as needed for Shortness Of Breath 01/26/16 Discontinued benzonatate benzonatate Non-narcoti 10-25-20 Complete no Otoniel zonatate no 100 mg oral c 19 - d information Discontinued name capsule (1 Antitussive 10-25-20 100 ORAL source.) 19 - Every 6 10-25-20 Hours as 19 needed for Cough October 25, 2019 6:02am (One-Time) nitrofurant nitrofurant Nitrofuran 25 mg 10-03-20 Complete take 1 Nitrofuranto Clay oin, oin Antibacteri 18 - d tablet by in [facility] 10-08-20 mouth twice Monohyd/M-Cr (no ls 25 mg / 18 daily yst phone) nitrofurant (Macrobid oin, 100 Mg monohydrate Capsule) 100 75 mg oral Mg Capsule 1 capsule (1 Tab ORAL source.) Twice A Day 5 Days 10 Cap 10/03/18 nitrofurant NITROFURANT Nitrofuran 25 mg 10-03-20 Complete no Nitrofuranto no oin, OIN, Antibacteri 18 - d information in name jayshreerysta JAYSHREERYSTA ma 10-25-20 Monohyd/M-Cr ls 25 mg / LS / 19 yst nitrofurant Nitrofurant Discontinued oin, oin, 1 ORAL Twice monohydrate Monohydrate A Day 10 5 75 mg oral November capsule (2017 sources.) 12:49pm October 25, 2019 no no 10-25-20 Complete no no information Vit/Iron information 19 d information Vit/I dayana name (1 source.) Fumarate/Fa Fumarate/Fa Discontinued 1 ORAL Daily October 25, 2019 Problems Active Problems Problem Normalized Date Last Normalized Normalized Provider Fa cility Classification Problem(s) Recorded Problem Problem Sta tus Duration Residual 12 weeks Episodic Active EBONY jamilaHEIMAN [place]it [place]; [place] [address] (Other Health Center unclassified Phone: of [facility] (3 sources.) Translations: ) [place] (35664 ) [ - 12 weeks gestation of Z3A.12] Residual 17 weeks Episodic Active EBONY zzHEIMAN Communit [place]; [place] [address] (Other Health Center unclassified Phone: of [facility] (6 sources.) Translations: ) [place] (12958 ) [ - 17 weeks gestation of Z3A.17] Residual 20 weeks Episodic Active EBONY zzHEIMAN Communit [place]; [place] [address] (Other Health Center unclassified Phone: of [facility] (3 sources.) Translations: ) [place] (34682 ) [ - 20 weeks gestation of Z3A.20] Residual 21 weeks Episodic Active EBONY zzHEIMAN Communit [place]; [place] [address] (Other Health Center unclassified Phone: of [facility] (9 sources.) Translations: ) [place] (53982 ) [ - 21 weeks gestation of Z3A.21] Residual 22 weeks Episodic Active EBONY zzHEIMAN Communit [place]; [place] [address] (Other Health Center unclassified Phone: of [facility] (3 sources.) Translations: ) [place] (67938 ) [ - 22 weeks gestation of Z3A.22] Residual 25 weeks Episodic Active EBONY zzHEIMAN Communit [place]; [place] [address] (Other Health Center unclassified Phone: of [facility] (3 sources.) Translations: ) [place] (96105 ) [ - 25 weeks gestation of Z3A.25] Residual 27 weeks Episodic Active EBONY zzHEIMAN Communit y [place]; [place] [address] (Other Health Center unclassified Phone: of [facility] (6 sources.) Translations: ) [place] (15563 ) [ - 27 weeks gestation of Z3A.27] Residual 28 weeks Episodic Active EBONY zzHEIMAN Communit [place]; [place] [address] (Other Health Center unclassified Phone: of [facility] (3 sources.) Translations: ) [place] ([address]27 ) [ - 28 weeks gestation of Z3A.28] Residual 31 weeks Episodic Active EBONY zzHEIMAN Communit y [place]; [place] [address] (Other Health Center unclassified Phone: of [facility] (3 sources.) Translations: ) [place] (65419 ) [ - 31 weeks gestation of Z3A.31] Residual 33 weeks Episodic Active EBONY zzHEIMAN Communit y [place]; [place] [address] (Other Health Center unclassified Phone: of [facility] (3 sources.) Translations: ) [place] (65557 ) [ - 33 weeks gestation of Z3A.33] Residual 34 weeks Episodic Active MAURA SEN [facility] Via codes; gestation of MD Karimi unclassified Hospital - (5 sources.) Translations: [place] [ - 34 weeks (66261) gestation of Z3A.34] Residual 35 weeks Episodic Active EBONY zzHEIMAN Communit [place]; [place] [address] (Other Health Center unclassified Phone: of [facility] (3 sources.) Translations: ) [place] (40149 ) [ - 35 weeks gestation of Z3A.35] Residual 36 weeks Episodic Active EBONY zzHEIMAN Communit y [place]; [place] [address] (Other Health Center unclassified Phone: of [facility] (3 sources.) Translations: ) [place] (80368 ) [ - 36 weeks gestation of Z3A.36] Allergic Allergy status Episodic Active JUSTYNA SAVANNAH [facility] Via reactions (1 to other Sachi source.) drugs, Hospital - medicaments [place] and biological (21733) substances status Mood disorders Bipolar Chronic Active PETER GONZALEZ Not Av ailable (20 sources.) disorder, (60095) unspecified Translations: [ - Severe episode of recurrent major depressive disorder, without psychotic features F33.2, Severe episode of recurrent major depressive disorder, without psychotic features, Severe episode of recurrent major depressive disorder, without psychotic features] Other Chronic Episodic Active MAURA SEN [place] Via complications hypertension 30040 Sachi of in obstetric Hospital (1 source.) context (68323) Essential Essential Chronic Active RAJAN [facility] Via hypertension (primary) MD Sachi VALLES (2 sources.) hypertension Hospital [facility] (56406) Residual Family history Episodic Active RAJAN [facility] Via codes; of ischemic MD Sachi VALLES unclassified heart disease Hospital - (2 sources.) and other [place] diseases of (85183) the circulatory system Residual Family history Episodic Active PETER GONZALEZ Not A vailable codes; of malignant (87285) unclassified neoplasm of (4 sources.) digestive organs Fever of Fever, Episodic Active EBONY zzHEIMAN Communit y unknown origin unspecified 00412 (Other Health Center (3 sources.) Translations: Phone: of [facility] [ - Fever of ) [place] (89309) undetermined origin R50.9] Influenza (3 Influenza due Episodic Active EBONY zzHEIMAN Community sources.) to other 80802 (Other Health Center identified Phone: of [facility] influenza ) [place] (70772) virus with other respiratory manifestations Translations: [ - Influenza A J10.1] Substance-rela Nicotine Chronic Active RALPH EDDIE , Not Available maury disorders dependenceMD (81104) (7 sources.) cigarettes, uncomplicated Other Nonreassuring Episodic Active MAURA SEN Asce nsion Via status 15266 Sachi conditions (1 Hospital source.) (14254) Other ear and Otalgia Episodic Active MAURA SEN [facility] josie Via sense organ 98197 S[place] disorders (1 Hospital source.) (97100) Personality Personality Chronic Active EBONY zzHEIMAN Com munity disorders (12 disorder 64238 (Other Health Center sources.) Translations: Phone: of [facility] [ Personality ) [place] (41528) disorder, - Personality disorder F60.9] Intestinal Viral Episodic Active MAURA SEN [facility] Via infection (1 gastroenteriti 82768 Sachi source.) [facility] (19589) Past or Other Problems Problem Normalized Date Last Normalized Normalized Provider Fa cility Classification Problem(s) Recorded Problem Problem Sta tus Duration Residual 37 weeks no information no information ARLETH LEVY , Not Available codes; gestation of (19707) unclassified (4 sources.) NEGATED 8 weeks no information no information MAURA SEN Not Available no gestation of MD (28409) information (5 sources.) Translations: [ 28 WEEKS GESTATION OF , 22 WEEKS GESTATION OF , 37 WEEKS GESTATION OF ] Other Diseases of Episodic Completed RAJAN Not Availa ble complications the MD HAI (45842) of respiratory (1 source.) system complicating , third trimester Early or False labor Episodic Completed NELSY SWEENEY , Not Fadumo ilable threatened before 37 DO (61498) labor (2 completed sources.) weeks of gestation, third trimester OB-related First degree Episodic Completed MAURA ARAYAOCH Not Available trauma to perineal MD (92975) perineum and laceration vulva (2 during sources.) delivery Other Injury, Episodic Completed MAURA SEN Not Avail able complications poisoning and , MD (61352) of certain other (1 source.) consequences of external causes complicating , third trimester Polyhydramnios Oligohydramnio Episodic Completed MAURA SEN Not Available and other s, third , (75050) problems of trimester, not amniotic applicable or cavity (2 unspecified sources.) Other ear and Otalgia, left Episodic Completed RAJAN [facility] Via sense organ ear MD HAI Sachi disorders (2 Hospital - sources.) [place] (57808) External Other external no information no information MAURA SEN Not Available Injury - cause status , (51048) Unspecified (1 source.) Other Other Episodic Completed MAURA SEN Not Avail able complications immediate , (85057) of ; puerperium hemorrhage affecting management of mother (2 sources.) Screening and Personal Episodic Completed ADELA GONZALEZ Not Fadumo ilable history of history of (12954) mental health nicotine and substance dependence abuse codes (3 sources.) Other Smoking Episodic Completed ARLETH LEVY , Not Avai lable complications (tobacco) (28119) of complicating (5 sources.) , third trimester Other Spotting Episodic Completed NELSY SWEENEY , Not Availa ble complications complicating DO (80365) of , (1 source.) third trimester External Unspecified no information no information MAURA FADY CH Not Available Injury - Fall fall, initial , (83394) (1 source.) encounter Residual Weeks of no information no information MAURA SEN Not Available codes; gestation of , (31429) unclassified not (1 source.) specified Procedures Procedure Normalized Procedure Procedure Result Performer Facility Date 12-29-2014 Cytp c/v auto thin lyr no information no name [facility] prepj scr mnl rescr [facility] (44647) DELIVERY OF PRODUCTS no information no name Not Avail able (57632) OF CONCEPTION, EXTE 12-29-2014 [place] chlamydia no information no name [facility] trachomatis amplified [facility] (97701) 12-29-2014 [place] trichomonas no information no name [facility] vaginal[facility] direct probe [facility] (22650) 12-29-2014 Obtaining screen pap no information no name Co [facility] smear [facility] (87423) Repair Perineum Skin, no information no name Not Avai lable (19125) External Approach 12-29-2014 Urine test no information no name Co [facility] visual color cmprsn [facility] (55612) 07-18-2013 Urine test no information no name [facility] (25866) 07-18-2013 Urnls dip stick/tablet no information no name [facility] rgnt auto w/o [facility] (12436) Immunizations Normalized Immunization Date Notes Care Provider Facili ty Immunization DEPO PROVERA (150 06-04-2019 no information no name Commu [facility] MG/ML) [facility] (59860) no information 10-25-2019 no information MAURA SEN [address] [address] [facility] (11614) no information 05-08-2019 no information MAURA SEN [address] [facility] (69434) Results Test Name Value Interpretation Reference Range Date Time Fa cility (Normalized) (Normalized) (Medline Reference) not yet categorized on 2020-02-19 OVERALL RESULT: NOT DETECTED (N) [facility] (74236) Control Negative (no code) [facility] (05114) Exp date 10/16/2022 (no code) [facility] (05383) Lot # [id number] (no code) [facility] (08164) SARS-CoV-2 RNA: Negative (N) [facility] (01033) Symptom NOT GIVEN (no code) [facility] (67155) laboratory on 2020-02-19 SARS coronavirus Negative (N) [facility] RNA BRAYDON+probe [facility] (Unsp spec) [facility] (59151) Specimen source NOT GIVEN (no code) [facility] (Unsp spec) [facility] (02952) not yet categorized on 2020-02-14 Exp date Negative (no code) [facility] (10923) Exp date 2021-10-28 (no code) [facility] (62765) Lot # [id number] (no code) [facility] (80089) not yet categorized on 2020-01-13 Exp date +~08-17 (no code) [facility] (68037) Lot # [id number] (no code) [facility] (54418) RESULTS Negative (no code) [facility] (01620) not yet categorized on 2019-06-04 Exp date +~09/15 (no code) [facility] (41821) Lot # [id number] (no code) [facility] (47606) RESULTS Negative (no code) [facility] (70483) venous blood hemoglobin measurement (mass/volume) on 2018-10-03 Hemoglobin mass 16.8 g/dL (H) 12.1 - 17.2 g/dL Via [facility] (Bld) [facility] (50281) urine urobilinogen measurement by automated test strip (mass/volume) on 2018-10-03 Urobilinogen 1 (no code) Via [facility] Test strip Qn [facility] ([facility] (75963) urine total bilirubin detection by test strip on 2018-10-03 Bilirubin Ql (U) Negative (no code) Via [facility] (67439) urine protein assay by test strip, semi-quantitativ e on 2018-10-03 Protein Test 1+ (*) Via Sachi strip () [facility] (57663) urine ph measurement by test strip on 2018-10-03 pH Test strip 5 [pH] (no code) 4.6 - 8 [pH] Via [facility] ([facility] (28801) urine nitrite detection by test strip on 2018-10-03 Nitrite Test Negative (no code) Via Sachi strip Ql (U) [facility] (60307) urine leukocyte esterase detection by dipstick on 2018-10-03 Leukocyte 2+ (*) Via [facility] esterase Test Hospital strip Ql (U) [place] (79571) urine ketones detection by automated test strip on 2018-10-03 Ketones Negative (no code) [facility] Automated test Hospital strip Ql (U) [place] (11080) urine glucose detection by automated test strip on 2018-10-03 Glucose Negative (no code) [facility] Automated test Hospital strip Ql (U) [place] (61355) urine color determination on 2018-10-03 Color Nom (U) YELLOW (no code) Via [facility] (39474) urine clarity determination on 2018-10-03 Clarity Nom (U) CLEAR (no code) Via [facility] (12877) streptococcus pyogenes antigen detection on 2018-10-03 S. pyogenes Ag Negative (no code) Via [facility] (Throat) [facility] (67838) squamous epithelial cells detection in urine sediment by light microscopy on 2018-10-03 Epithelial no information (*) Via [facility] cells.squamous Hospital LM Ql (Urine [place] sed) (61345) specific gravity of urine by test strip on 2018-10-03 Specific gravity 1.020 (no code) Via [facility] Relative Density [facility] () [place] (11914) serum or plasma urea nitrogen/creatin ine mass ratio on 2018-10-03 Urea 12 mg/mg (no code) 6 - 22 mg/mg Via [facility] nitrogen/Creatin Hospital ine mass ratio [place] (64995) serum or plasma urea nitrogen measurement (mass/volume) on 2018-10-03 Urea nitrogen 9 mg/dL (no code) 7 - 20 mg/dL Via [facility] i mass [facility] (33995) serum or plasma total bilirubin measurement (mass/volume) on 2018-10-03 Bilirubin mass 1.1 mg/dL (H) 0.1 - 1.2 mg/dL Via risti [facility] (18177) serum or plasma sodium measurement (moles/volume) on 2018-10-03 Sodium molar 139 mmol/L (no code) 135 - 145 mmol/L Via [facility] isti [facility] (69665) serum or plasma protein measurement (mass/volume) on 2018-10-03 Protein mass 7.6 g/dL (no code) 6.4 - 8.3 g/dL Via [facility] (24110) serum or plasma potassium measurement (moles/volume) on 2018-10-03 Potassium molar 4.2 mmol/L (no code) 3.7 - 5.2 mmol/L Via [facility] () serum or plasma glucose measurement (mass/volume) on 2018-10-03 Glucose mass 93 mg/dL (no code) 60 - 125 mg/dL Via [facility] (72824) serum or plasma creatinine measurement with calculation of estimated glomerular filtration rate on 2018-10-03 GFR/1.73 sq M no information (no code) Via [facility] non-[facility] vol rate/area () (S/P/Bld) serum or plasma creatinine measurement (mass/volume) on 2018-10-03 Creatinine mass 0.75 mg/dL (no code) Via [facility] (75753) serum or plasma chloride measurement (moles/volume) on 2018-10-03 Chloride molar 107 mmol/L (no code) 95 - 106 mmol/L Via [facility] (16961) serum or plasma calcium measurement (mass/volume) on 2018-10-03 Calcium mass 9.8 mg/dL (no code) 8.5 - 10.2 mg/dL Via [facility] (31992) serum or plasma aspartate aminotransferase measurement (enzymatic activity/volume) on 2018-10-03 AST enzyme 27 U/L (no code) 10 - 34 U/L Via [facility] (36225) serum or plasma anion gap determination (moles/volume) on 2018-10-03 Anion gap 3 8 mmol/L (no code) 3 - 11 mmol/L Via [facility] (81502) serum or plasma alkaline phosphatase measurement (enzymatic activity/volume) on 2018-10-03 ALP enzyme 79 U/L (no code) 44 - 147 U/L Via [facility] (76039) serum or plasma albumin measurement (mass/volume) on 2018-10-03 Albumin mass 4.5 g/dL (no code) 3.4 - 5.4 g/dL Via [facility] (67867) serum or plasma alanine aminotransferase measurement (enzymatic activity/volume) on 2018-10-03 ALT enzyme 41 U/L (no code) 4 - 40 U/L Via [facility] act/vol [facility] (80243) mucus detection in urine sediment by light microscopy on 2018-10-03 Mucus LM Ql MODERATE (*) Via [facility] (Urine sed) [facility] (38031) erythrocytes detection in urine sediment by light microscopy on 2018-10-03 RBC LM Ql (Urine Negative (no code) Via [facility] sed) [facility] (79410) crystals detection in urine sediment by light microscopy on 2018-10-03 Crystals LM Ql NONE (no code) Via [facility] (Urine sed) [facility] (24201) complete urinalysis with reflex to culture on 2018-10-03 Urinalysis YES (no code) Via [facility] Reflex Culture [place] panel - Urine (27274) casts detection in urine sediment by light microscopy on 2018-10-03 Casts LM Ql NONE (no code) Via [facility] (Urine sed) [facility] (85897) carbon dioxide on 2018-10-03 CO2 molar conc 24 mmol/L (no code) 23 - 29 mmol/L [facility] (93199) calcium measurement corrected for albumin on 2018-10-03 Calcium mass 9.4 mg/dL (no code) 8.5 - 10.2 mg/dL Via [facility] (99439) blood neutrophils automated count (number/volume) on 2018-10-03 Neutrophils Auto 7.2 10*3/uL (no code) 1.7 - 7 10*3/uL Via [facility] #/vol (Bld) [facility] (66640) blood monocytes/100 leukocytes on 2018-10-03 Monocytes/100 7 % (no code) 2 - 8 % Via [facility] WBC Auto (Bld) [facility] (37465) blood monocytes automated count (number/volume) on 2018-10-03 Monocytes Auto 0.7 10*3/uL (no code) 0.3 - 0.9 Via [facility] #/vol (Bld) 10*3/uL [facility] (16569) blood lymphocytes automated count (number/volume) on 2018-10-03 Lymphocytes Auto 2.7 10*3/uL (no code) 0.9 - 2.9 Via [facility] #/vol (Bld) 10*3/uL [facility] (40143) blood leukocytes automated count (number/volume) on 2018-10-03 WBC Auto #/vol 10.9 10*3/uL (no code) 3.5 - 10.5 Via [facility] i (d) 10*3/uL [facility] (06507) blood hematocrit (volume fraction) on 2018-10-03 Hematocrit Auto 48 % (no code) 36.1 - 50.3 % Via [facility] isti Volume Fraction [facility] ([facility] [place] (23718) blood erythrocytes automated count (number/volume) on 2018-10-03 RBC Auto #/vol 5.43 10*6/uL (no code) 4.2 - 6.1 Via [facility] (d) 10*6/uL [facility] (13103) bacteria detection in urine sediment by light microscopy on 2018-10-03 Bacteria LM Ql MODERATE (*) Via [facility] (Urine sed) [facility] (75824) automated urine sediment leukocyte count by microscopy (number/high power field) on 2018-10-03 WBC LM.HPF no information (*) Via [facility] #/area ([facility]rine [facility] [place] (03561) automated urine sediment erythrocyte count by microscopy (number/high power field) on 2018-10-03 RBC LM.HPF NONE (no code) [facility] #/area ([facility] [place] (76586) automated erythrocyte mean corpuscular volume on 2018-10-03 MCV Auto Entitic 88 fL (no code) 80 - 100 fL Via [facility] sti volume (RBC) [facility] (18430) automated erythrocyte mean corpuscular hemoglobin concentration measurement (mass/volume) on 2018-10-03 [facility] Auto mass 35 g/dL (no code) 32 - 36 g/dL [facility] ti conc (RBC) [facility] ([id number]) automated erythrocyte mean corpuscular hemoglobin (mass per erythrocyte) on 2018-10-03 [facility] Auto Entitic 31 pg (no code) 27 - 31 pg [facility] ti mass (RBC) [facility] ([id number]) automated erythrocyte distribution width ratio on 2018-10-03 Erythrocyte 13.1 % (no code) 11.6 - 14.6 % Via [facility] distribution Hospital width Auto Ratio [place] (RBC) ([id number]) automated eosinophil count on 2018-10-03 Eosinophils Auto 0.2 10*3/uL (no code) 0.05 - 0.5 Via [facility] ti #/vol (Bld) 10*3/uL [facility] ([id number]) automated blood platelet mean volume measurement on 2018-10-03 Platelet mean 11.0 fL (H) 7.2 - 11.7 fL [facility] ti volume Auto [facility] (Bld) ([id number]) automated blood platelet count (count/volume) on 2018-10-03 Platelets Auto 200 10*3/uL (no code) 150 - 450 [facility] #/vol (Bld) 10*3/uL [facility] ([id number]) automated blood neutrophils/100 leukocytes on 2018-10-03 Neutrophils/100 67 % (no code) 40 - 60 % Via Brian i WBC Auto (d) [facility] ([id number]) automated blood lymphocytes/100 leukocytes on 2018-10-03 Lymphocytes/100 25 % (no code) 20 - 40 % [facility] WBC Auto (Bld) [facility] ([id number]) automated blood eosinophils/100 leukocytes on 2018-10-03 Eosinophils/100 2 % (no code) 1 - 4 % [facility] WBC Auto (Bld) [facility] ([id number]) automated blood basophils/100 leukocytes on 2018-10-03 Basophils/100 0 % (no code) 0.5 - 1 % [facility] WBC Auto (Bld) [facility] ([id number]) automated blood basophil count (count/volume) on 2018-10-03 Basophils Auto 0.0 10*3/uL (no code) 0 - 0.3 10*3/uL Via risti #/vol (Bld) [facility] ([id number]) laboratory on 2015-01-02 Microscopic FOOTNOTE (no code) [facility] observation [facility] stain.thin prep [place] [facility] (Cvx) ([id number]) Vital Signs Vital Sign Value Interpretation Reference Date Time Care Prov ider Facility (Normalized) (Normalized) Range Body height 180.34 cm (no code) cm 07-18-2013 EBONY Blackburn [facility] [id number] (Other Health Center Phone: of [facility] ) [place] ([id number]) Body 98.6 [degF] (no code) 97.8 - 99.0 12-29-2014 [facility] Temperature [degF] [id number]:[id number] [id number] [facility] ([id number]) Body 97.9 [degF] (no code) 97.8 - 99.0 07-18-2013 [facility] temperature [degF] 12:130400 60373 (Other [facility] er Phone: of [facility] ) [place] ([id number]) Body weight 112.04 kg (no code) kg 12-29-2014 [facility] 09:[id number] [facility] ([id number]) Body weight 97.93 kg (no code) kg 07-18-2013 [facility] 12:0400 78508 (Other Health Center Phone: of [facility] ) [place] ([id number]) Height 180.34 cm (no code) cm 12-29-2014 [facility] 09:[id number] 43970 [facility] ([id number]) Interventions No Information Plan of Treatment Normalized Care Care Detail Care Activity Date Care Provider F acility Activity Patient Education Bronchiolitis (DC) no information [facility] [address] [facility] ([id number]) Patient referral no information no information MAURA SEN [phone] [facility] ([id number]) S. pyogenes Ag no information no information MAURA SEN [phone] [place].rapid Ql (Throat) [facility] ([id number]) Goals Patient Goal Desired Goal no information no information Social History Normalized Code Original Code Date Value Tobacco smoking status Tobacco smoking status no information Smokes tobacco daily NVIS NHIS (finding) no information no information 01-26-2016 Rarely Uses no information no information 01-26-2016 No no information no information 10-25-2019 Denies no information no information 10-25-2019 Current Everyda y Smoker no information no information 10-25-2019 Cigarettes Sex Assigned At Sex Assigned At no information F emale Functional Status The data below is from unstructured sources Query Response Date Wilber rded Patient Orientation Person Place Time Situation November 17, 2016 3:58pm Mental Status The data below is from unstructured sourcesNo Mental Status Information Available Encounters Encounter Normalized Encounter Encounter Diagnosis Care Provi laura Organization Date Type 02-14-2020 [facility] Acute pharyngitis, JEFRY CINTRON NA [facility] unspecified phone) CARE (no phone) 03-03-2020 [facility] Generalized anxiety CHACHO SUSAN (no phone) [facility] disorder (no phone) 01-13-2020 [facility] Encounter for ANTONIETA Dick (no [facility] surveillance of phone) (no phone) injectable contraceptive 12-26-2019 [facility] 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 (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[facility] FQ disorder, recurrent phone) (no phone) severe without psychotic features 12-11-2019 [facility] Major depressive CHACHO SUSAN (n o phone) [facility] disorder, recurrent (no phone) severe without psychotic features 11-21-2019 [facility] 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 (no [facility] FQ disorder, recurrent phone) (no phone) severe without psychotic features 10-21-2019 [facility] 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 (no [facility] FQHC disorder, recurrent phone) (no phone) severe without psychotic features 10-10-2019 [facility] 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 (no [facility] disorder, recurrent phone) (no phone) severe without psychotic features 06-04-2019 [facility] Personal history of MAURA KRAFT (no [facility] - other complications of phone) (no bella ne) 06-04-2019 , childbirth - and the puerperium 06-04-2019 10-25-2019 Emergency department no information (no phone) As cension [facility] - patient visit Hospital (no phone) 10-25-2019 10-25-2019 Emergency department no information no name no organization name - patient visit 10-25-2019 05-08-2019 Emergency department no information RAJAN JARQUIN INS no organization name - patient visit Work Phone: 05-08-2019 12-10-2018 Emergency department no information JUSTYNA NUÑEZ Work no organization name - patient visit Phone: 12-10-2018 10-03-2018 Emergency department no information CLAY RUBIO ( no no organization name - patient visit phone) 10-03-2018 02-28-2020 Encounter by computer no information CHACHOOPHELIA DAVIS (no phone) [facility] link (no phone) 11-11-2019 FQ visit new patient Major depressive CHACHO SUSAN ( no phone) [facility] disorder, recurrent (no phone) severe without psychotic features 02-19-2020 Nursing evaluation of Fever, unspecified [facility]A [facility] (no [facility] patient and report phone) CARE (no phone) 10-03-2018 Patient encounter no information no name no or ganization name 08-05-2016 Patient encounter no information no name no or ganization name NEGATED Patient encounter no information no name no or ganization name 07-13-2016 NEGATED Patient encounter no information no name no or ganization name 04-22-2016 02-19-2020 Patient encounter no information (no phone) [facility] procedure [facility] (no phone) 02-14-2020 Patient encounter no information [facility]A N SEN [facility] o [facility] phone) (no phone) [facility] (no phone) 01-13-2020 Patient encounter no information [facility]URA N SEN (n o [facility] procedure phone) (no phone) [facility] (no phone) 12-11-2019 Patient encounter no information no name no or ganization name procedure 11-21-2019 Patient encounter no information no name no or ganization name procedure 10-25-2019 Patient encounter no information no name no or ganization name procedure 10-21-2019 Patient encounter no information no name no or ganization name procedure 10-10-2019 Patient encounter no information no name no or ganization name procedure 06-04-2019 Patient encounter no information no name no or ganization name procedure 05-22-2019 Patient encounter no information no name no or ganization name procedure 05-08-2019 Patient encounter no information no name no or ganization name procedure 09-25-2017 Patient encounter no information no name no or ganization name procedure 01-23-2017 Patient encounter no information no name no or ganization name procedure 01-23-2017 Patient encounter no information no name no or ganization name procedure 11-14-2016 Patient encounter no information no name no or ganization name - procedure 01-22-2017 01-02-2015 Patient encounter no information (no phone) Hollie bearden [facility] procedure [facility] (no phone) 03-19-2020 Telephone encounter no information MAURA SEN (n o [facility] (no phone) phone) 02-19-2020 Telephone encounter no information [facility] SEN [facility] phone[facility] TANK SANTANA (no phone) (no phone) 02-14-2020 Telephone encounter no information [facility] SEN [facility] phone) (no phone) 10-10-2019 Telephone encounter Major depressive MAURA SEN (no [facility] disorder, recurrent phone) (no phone) severe without psychotic features Medical Equipment The data below is from unstructured sourcesNo Medical Equipment Information available Payers Normalized Payer Value Unknown [id number]) Evaluation note Note Type Note Facility Evaluation No Assessments Information Available A scension note [facility] ([id number]) History general Narrative - Reported Note Type Note Facility History general Narrative - Reported Type Medical HTN History Medical [place] History Medical Pre-eclampsia in History Medical Post- Depression History Medical depression History Medical depression History Medical Anxiety, generalized History Surgical No Surgical history informa tion History Hospitaliz Childbirth ation History [facility] ([id number]) Summary Purpose eClinicalWorks SubmissioneClinicalWorks SubmissioneClinicalWorks SubmissioneClinicalWorks SubmissioneClinicalWorks SubmissioneClinicalWorks SubmissioneClinicalWorks SubmissioneClinicalWorks SubmissioneClinicalWorks SubmissioneClinicalWorks SubmissioneClinicalWorks SubmissioneClinicalWorks SubmissioneClinicalWorks Submission Advance Directives Directive Response Recor ded Date/Time Advance Directives No 6:18pm Health Care Power of Rail Car Repairer No 09/06/16 6:18pm Organ Donor Yes 09/06/16 6:18pm Resuscitation Status Full Code 09/06/16 6:18pm Directive Response Recor ded Date/Time Advance Directives No 11:00am Health Care Power of Rail Car Repairer No 09/30/16 11:00am Organ Donor Yes 09/30/16 11:00am Resuscitation Status Full Code 09/30/16 11:00am Directive Response Recor ded Date/Time Advance Directives No 9:34pm Health Care Power of Rail Car Repairer No 10/30/16 9:34pm Organ Donor Yes 10/30/16 9:34pm Resuscitation Status Full Code 10/30/16 9:34pm Directive Response Recor ded Date/Time Advance Directives No 1:30am Health Care Power of Rail Car Repairer No 11/12/16 1:30am Organ Donor Yes 11/12/16 1:30am Resuscitation Status Full Code 11/12/16 1:30am Directive Response Recor ded Date/Time Advance Directives No 1:30am Health Care Power of Rail Car Repairer No 11/12/16 1:30am Organ Donor Yes 11/12/16 1:30am Directive Response Recor ded Date/Time Advance Directives No 2:34pm Health Care Power of Rail Car Repairer No 11/14/16 2:34pm Organ Donor Yes 11/14/16 2:34pm Resuscitation Status Full Code 11/14/16 2:34pm Directive Response Recor ded Date/Time Advance Directives No 2:34pm Health Care Power of Rail Car Repairer No 11/14/16 2:34pm Organ Donor Yes 11/14/16 2:34pm Directive Response Recor ded Date/Time Advance Directives No 11:27am Resuscitation Status Full Code 10/30/15 11:27am Directive Response Recor ded Date/Time Advance Directives No 9:12pm Resuscitation Status Full Code 01/25/16 9:12pm Directive Response Recor ded Date/Time Advance Directives No 9:29pm Health Care Power of Rail Car Repairer No 09/25/17 9:29pm Organ Donor Yes 09/25/17 9:29pm Resuscitation Status Full Code 09/25/17 9:29pm Directive Response Recor ded Date/Time Advance Directives No 10:49am Health Care Power of Rail Car Repairer No 10/03/18 10:49am Organ Donor Yes 10/03/18 10:49am Resuscitation Status Full Code 10/03/18 10:49am Directive Response Recor ded Date/Time Advance Directives No 8:32am Health Care Power of Rail Car Repairer No 12/10/18 8:32am Organ Donor Yes 12/10/18 8:32am Resuscitation Status Full Code 12/10/18 8:32am Directive Response Recor ded Date/Time Advance Directives No 9:12am Health Care Power of Rail Car Repairer No 05/08/19 9:12am Organ Donor Yes 05/08/19 9:12am Resuscitation Status Full Code 05/08/19 9:12am Advance Directive Response Recorded Date/Time Advance Directives No No 2018 5:45am Health Care Power of Rail Car Repairer No October 25, 2019 5:45am Organ Donor Yes October 25, 2019 5:45am Resuscitation Status Full Code October 25, 2019 5:45am Discharge Instructions No hospital discharge instructions.No hospital discharge instructions.No hospital discharge instructions.No hospital discharge instructions.Current inpatient/outpatient. Discharge instructions are currently unavailable.Current inpatient/outpatient. Discharge instructions are currently unavailable. Patient Instructions Physician Instructions New, Converted or Re-Newed RX: Other (nifedipine transmitted, hydrocodone on chart) Goal/Follow Up Appt: Follow up with Dr. Chatterjee in 1 week for blood pressure check. Follow up with Dr. Chatterjee in 6 weeks for visit. Return to The Hospital For: Headache, upper abdominal pain, vision changes, shortness of breath, increased vaginal bleeding, dizziness, chest pain, foul vaginal discharge, fever Discharge Diet: Regular Diet Activity as Tolerated: Yes (avoid strenuous activity x 6 weeks) No hospital discharge instructions.No hospital discharge instructions.No hospital discharge instructions.No hospital discharge instruction information available.No hospital discharge instruction information available.No hospital discharge instruction information available.No hospital discharge instruction information available. Chief Complaint and Reason for Visit Chief Complaint Cough/Cold/Flu Sympt oms Reason for Visit Urinary tract infec tion Upper respiratory infection Chief Complaint Abdominal/GI Problem s Reason for Visit [id number] Chief Complaint Ear Problems Reason for Visit Upper respiratory i nfection Left ear pain Chief Complaint Cough/Cold/Flu Sympt oms Reason for Visit [id number] Additional Source Comments This clinical document has been generated using [employer] software that has been certified by the Office of the National Coordinator for Health Information Technology (ONC 15.99.04.3023.Diam.31.00.0.577238) and the National Committee for Hand Cell Tuber (NCQA, as an eMeasure certified technology). FOR RECORDS PERTAINING TO PATIENTS WHO ARE OR HAVE BEEN ENROLLED IN A CHEMICAL D EPENDENCY/SUBSTANCE ABUSE PROGRAM, SOME INFORMATION MAY BE OMITTED. This clinica l summary was aggregated from multiple sources. Caution should be exercised in using it in the provision of clinical care. This summary normalizes information from multiple sources, and as a consequence, information in this document may ma terially change the coding, format and clinical context of patient data. In antwan tion, data may be omitted in some cases. CLINICAL DECISIONS SHOULD BE BASED ON T HE PRIMARY CLINICAL RECORDS. [employer] provides no warranty or guara ntee of the accuracy or completeness of information in this document.The followi ng information is based on time limited clinical information UNRECOGNIZED CONTENT PROVIDED BELOW FOR UNRECOGNIZED SECTION REASON FOR VISIT EMR-[facility] [place] UNRECOGNIZED CONTENT PROVIDED BELOW FOR UNRECOGNIZED SECTION MEDICAL (GENERAL) HISTORY Type Description Date Medical History HTN Medical History [place] Medical History Pre-eclampsia in Medical History Post- Depression Medical History depression Surgical History No know Surgical history Hospitalization History Childbirth
--- OUTSIDE RECORDS SUMMARY | 2020-04-20 10:43 | XMS REPORT ---
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 Name Role Phone EBONY Peraza Unavailable PROBLEMS Type Condition ICD9-CM Code YEY37-LC Code Onset Dates Condition S tatus SNOMED Code Problem Severe episode of recurrent major depressive disorder, without psychotic features F33.2 Active 81858677 Problem Personality disorder F60.9 Active 87757192 Problem History of gestational hypertension Z87.59 Active 508580781 Problem Generalized anxiety disorder F41.1 A ctive [id number] Problem Acute seasonal allergic rhinitis, unspecified trigger J30.2 Active [id number] ALLERGIES No Information ENCOUNTERS Encounter Location Date Diagnosis [place] [id number] [place] [phone] Feb, [facility] [place] [address] [place] [id number] [place] [phone] Feb, Generalized anxiety disorder F41.1 ; Severe episode of recurrent major depressive disorder, without psychotic features F33.2 and Personality disorder F60.9 [facility] [place] [id number] [place] [phone] Feb, [facility] [address] [place] [id number] [place] [phone] Jan, Fever of undetermined origin R50.9 [facility] [place] [address] [facility] [id number] [address] [place] [phone] Jan, [facility] [place] [address] [place] [id number] [address] [place] [phone] Jan, [facility] [address] [place] [id number] [address] [place] [phone] Jan, Sore throat J02.9 and Influe nza A J10.1 [place] [address] [address] [facility] [id number] [address] [place] [phone] Jan, [facility] [place] [id number] [place] [phone] Jan, [place] [address] [address] [facility] [id number] [address] [place] [phone] Jan, [place] [address] [place] [id number] [address] [place] [phone] Dec, Encounter for Depo-Provera c ontraception Z30.42 [place] [address] [place] [id number] [place] [phone] Nov, Severe episode of recurrent major depressive disorder, without psychotic features F33.2 and Generalized anxiety disorder F41.1 [place] [address] [place] [id number] [place] [phone] Nov, Severe episode of recurrent major depressive disorder, without psychotic features F33.2 ; Generalized anxiety disorder F41.1 and Personality disorder F60.9 [place] [address] [place] [id number] [place] [phone] Oct, Severe episode of recurrent major depressive disorder, without psychotic features F33.2 and Generalized anxiety disorder F41.1 [place] [address] [place] [id number] [place] [phone] Oct, Severe episode of recurrent major depressive disorder, without psychotic features F33.2 ; Generalized anxiety disorder F41.1 and Personality disorder F60.9 [place] [address] [place] [id number] [place] [phone] Sep, Severe episode of recurrent major depressive disorder, without psychotic features F33.2 and Generalized anxiety disorder F41.1 [place] [address] [place] [id number] [address] [place] [phone] Sep, Severe episode of recurrent major depressive disorder, without psychotic features F33.2 [place] [address] [place] [id number] [address] [place] [phone] 14 Sep, 2019 Severe episode of recurrent major depressive disorder, without psychotic features F33.2 [facility] [place] [address] [place] [id number] [place] [phone] May, History of gestational hyper tension Z87.59 ; Severe episode of recurrent major depressive disorder, without psychotic features F33.2 ; control counseling Z30.09 and Encounter for Depo-Provera contraception Z30.42 [facility] [place] [address] [place] [id number] [address] [place] [phone] Apr, [facility] [place] [address] [address] Apr, [facility] [address] [place] [id number] [place] [phone] Sep, Acute seasonal allergic rhin itis, unspecified trigger J30.2 and Bronchitis J40 [facility] [place] [address] [place] [id number] [place] [phone] Jun, Encounter for Depo-Provera c ontraception Z30.42 [place] [address] [place] [id number] [address] [place] [phone] March, Encounter for Depo-Provera c ontraception Z30.42 [place] [address] [address] March, [facility] [place] [address] [address] Dec, Encounter for Depo-Provera c ontraception Z30.42 ; History of gestational hypertension Z87.59 and depression F53 [facility] [place] [address] [place] [id number] [place] [phone] Nov, [facility] [place] [address] [place] [id number] [place] [phone] Nov, depression F53 ; Patient is a currently breast-feeding mother Z39.1 and Anxiety, generalized F41.1 [facility] [place] [address] [id number] [address] [place] [phone] Nov, [facility] [place] [address] [id number] [address] [place] [phone] Nov, [facility] [place] [address] [facility] [id number] [address] [place] [phone] Nov, [facility] [place] [address] [id number] [address] [place] [phone] Nov, [facility] [place] [address] [id number] [address] [place] [phone] Nov, depression F53 an d Anxiety, generalized F41.1 [facility] [place] [address] [facility] [id number] [address] [place] [address] Nov, Anxiety, generalized F41.1 a nd depression F53 [facility] [place] [address] [facility] [id number] [address] [place] [phone] Nov, depression F53 an d Generalized anxiety disorder F41.1 [facility] [place] [address] [facility] [id number] [address] [place] [phone] Nov, depression F53 [facility] [place] [address] [facility] [id number] [address] [place] [phone] Nov, depression F53 an d Patient is a currently breast-feeding mother Z39.1 [facility] [place] [address] [facility] [id number] [address] [place] [phone] Oct, [facility] [address] [id number] [address] [place] [phone] Oct, [facility] [place] [address] [facility] [id number] [address] [place] [phone] Oct, Chronic hypertension affecti ng O10.919 [facility] [place] [address] [facility] [id number] [address] [place] [address] Oct, [facility] [place] [address] [facility] [id number] [address] [place] [address] 14 Oct, 2016 Proteinuria affecting pregna ncy in third trimester O12.13 ; Chronic hypertension affecting O10.919 and 36 weeks gestation of Z3A.36 [facility] [place] [address] [facility] [id number] [address] [place] [phone] 09 Oct, 2016 Elevated blood pressure affe cting in first trimester, antepartum O13.1 [facility] [place] [address] [facility] [id number] [address] [place] [phone] 07 Oct, 2016 care, first pregnan cy in third trimester Z34.03 ; Chronic hypertension affecting O10.919 ; 35 weeks gestation of Z3A.35 and STD exposure Z20.2 [place] [address] [facility] [id number] [address] [place] [phone] 30 Sep, 2016 Proteinuria affecting pregna ncy in third trimester O12.13 ; Chronic hypertension affecting O10.919 ; care, first in third trimester Z34.03 and 34 weeks gestation of Z3A.34 [place] [address] [facility] [id number] [address] [place] [address] Sep, [place] [address] [facility] [id number] [address] [place] [address] Sep, Proteinuria affecting pregna ncy in third trimester O12.13 ; 33 weeks gestation of Z3A.33 and Chronic hypertension affecting O10.919 [place] [address] [facility] [id number] [address] [place] [address] 16 Sep, 2016 [place] [address] [facility] [id number] [address] [place] [phone] 15 Sep, 2016 [place] [address] [facility] [id number] [address] [place] [phone] Sep, Third trimester Z3 3.1 ; 31 weeks gestation of Z3A.31 ; Abnormal quad screen O28.0 ; Proteinuria affecting in third trimester O12.13 and Encounter for immunization Z23 [place] [address] [facility] [id number] [address] [place] [phone] Aug, [place] [address] [address] [facility] [id number] [address] [place] [phone] 18 Aug, 2016 Proteinuria affecting pregna ncy in third trimester O12.13 ; Third trimester bleeding O46.93 ; Unspecified abdominal pain R10.9 ; Other specified related conditions, unspecified trimester O26.899 and 28 weeks gestation of Z3A.28 [place] [address] [address] [facility] [id number] [address] [place] [phone] 13 Aug, 2016 [place] [address] [address] [facility] [id number] [address] [place] [address] 12 Aug, 2016 Syncope, unspecified syncope type R55 ; Hypertension affecting in second trimester O16.2 ; Proteinuria affecting in second trimester O12.12 and 27 weeks gestation of Z3A.27 [place] [address] [address] [facility] [id number] [address] [place] [phone] 07 Aug, 2016 Diabetes mellitus screening Z13.1 ; , first, second trimester Z34.02 and 27 weeks gestation of Z3A.27 [place] [address] [address] [facility] [id number] [address] [place] [phone] 04 Aug, 2016 Hypertension affecting pregn delmy in second trimester O16.2 and Proteinuria affecting in second trimester O12.12 [place] [address] [address] [facility] [id number] [address] [place] [phone] Aug, Hypertension affecting pregn delmy in second trimester O16.2 and Proteinuria affecting in second trimester O12.12 [place] [address] [address] [facility] [id number] [address] [place] [phone] Aug, Proteinuria affecting pregna ncy in second trimester O12.12 and Hypertension affecting in second trimester O16.2 [place] [address] [facility] [id number] [address] [place] [phone] Aug, Hypertension affecting pregn delmy in second trimester O16.2 [place] [address] [place] [id number] [place] [phone] Aug, Hypertension affecting pregn delmy in second trimester O16.2 [place] [address] [place] [id number] [address] [place] [phone] Jul, , first, second tri mester Z34.02 ; 25 weeks gestation of Z3A.25 and Encounter for immunization Z23 [place] [address] [place] [id number] [place] [phone] Jul, Hypertension affecting pregn delmy in second trimester O16.2 ; Proteinuria affecting in second trimester O12.12 and 22 weeks gestation of Z3A.22 [place] [address] [address] Jul, 21 weeks gestation of pregna ncy Z3A.21 ; Proteinuria affecting in second trimester O12.12 ; Hypertension affecting in second trimester O16.2 and Blurry vision, left eye H53.8 [place] [address] [place] [id number] [place] [phone] Jun, , first, second tri mester Z34.02 ; Proteinuria affecting in third trimester O12.13 ; Hypertension affecting , second trimester O16.2 ; 21 weeks gestation of Z3A.21 and Evaluate anatomy not seen on prior sonogram Z36 [place] [address] [place] [id number] [place] [address] Jun, , first, second tri mester Z34.02 ; Hypertension affecting , second trimester O16.2 ; Proteinuria affecting in third trimester O12.13 ; 21 weeks gestation of Z3A.21 and Evaluate anatomy not seen on prior sonogram Z36 [place] [address] [place] [id number] [place] [phone] Jun, Abnormal quad screen O28.0 a nd 17 weeks gestation of Z3A.17 [place] [address] [place] [id number] [place] [phone] May, Normal , first Z34. 00 and 17 weeks gestation of Z3A.17 [facility] [place] [address] [id number] [address] [place] [phone] Apr, Normal , first Z34. 00 and 12 weeks gestation of Z3A.12 [facility] [place] [address] [facility] [id number] [address] [place] [phone] March, heart tones not heard O76 ; 20 weeks gestation of Z3A.20 and , first, second trimester Z34.02 [facility] [place] [address] [facility] [id number] [address] [place] [phone] March, [facility] [place] [address] [facility] [id number] [address] [place] [phone] March, Encounter for test , result positive Z32.01 [facility] [address] [facility] [id number] [address] [place] [phone] Dec, Low back pain M54.5 ; Sore t hroat J02.9 ; Acute right lower quadrant pain R10.31 and Cough R05 [facility] [place] [address] [id number] [address] [place] [phone] Feb, [facility] [place] [address] [facility] [id number] [address] [place] [phone] Dec, [facility] [place] [address] [id number] [address] [place] [phone] Dec, [facility] [place] [address] [facility] [id number] [address] [place] [phone] Dec, [facility] [place] [address] [facility] [id number] [address] [place] [phone] Dec, [facility] [place] [address] [facility] [id number] [address] [place] [phone] Dec, [facility] [place] [address] [facility] [id number] [address] [place] [phone] Dec, [facility] [place] [address] [id number] [address] [place] [phone] Dec, [facility] [place] [address] [id number] [address] [place] [phone] Oct, [facility] [place] [address] [id number] [address] [place] [phone] Oct, [facility] [place] [address] [id number] [address] [place] [phone] Aug, [facility] [place] [address] [id number] [address] [place] [phone] Aug, [facility] [place] [address] [id number] [address] [place] [phone] Aug, [facility] [place] [address] [id number] [address] [place] [phone] Aug, [facility] [place] [address] [id number] [address] [place] [phone] Aug, [facility] [place] [address] [id number] [address] [place] [phone] Aug, [facility] [place] [address] [id number] [address] [place] [phone] Aug, [facility] [place] [address] [id number] [address] [place] [phone] Aug, [facility] [place] [address] [id number] [address] [place] [phone] Aug, [facility] [place] [address] [id number] [address] [place] [phone] Jun, [facility] [place] [address] [id number] [address] [place] [phone] Jun, IMMUNIZATIONS No Known Immunizations SOCIAL HISTORY Never Assessed REASON FOR VISIT PLAN OF CARE VITAL SIGNS MEDICATIONS Unknown Medications RESULTS No Results PROCEDURES No Known procedures INSTRUCTIONS MEDICATIONS ADMINISTERED No Known Medications MEDICAL (GENERAL) HISTORY Type Description Date Medical History HTN Medical History D[place] Previa Medical History Pre-eclampsia in Medical History Post- Depression Medical History depression Medical History depression Medical History Anxiety, generalized Surgical History No Surgical history information Hospitalization History Childbirth
--- OUTSIDE RECORDS SUMMARY | 2020-04-20 10:44 | XMS REPORT ---
Author Author Starr Peraza Organization [facility] Address [address] [place] [address] Care Team Providers Care Film Reader Name Role Phone EBONY Peraza Unavailable PROBLEMS Type Condition ICD9-CM Code FYH16-JC Code Onset Dates Condition S tatus SNOMED Code Problem Severe episode of recurrent major depressive disorder, without psychotic features F33.2 Active 44643382 Problem Personality disorder F60.9 Active 71520069 Problem History of gestational hypertension Z87.59 Active 071491469 Problem Generalized anxiety disorder F41.1 A ctive 56130836 Problem Acute seasonal allergic rhinitis, unspecified trigger J30.2 Active [id number] ALLERGIES No Information ENCOUNTERS Encounter Location Date Diagnosis [place] [id number] [place] [phone] Feb, [facility] [address] [place] [id number] [place] [phone] Feb, Generalized anxiety disorder F41.1 ; Severe episode of recurrent major depressive disorder, without psychotic features F33.2 and Personality disorder F60.9 [facility] [id number] [place] [address] Feb, [facility] [address] [place] [id number] [address] [place] [phone] Jan, Fever of undetermined origin R50.9 [facility] [address] [facility] [id number] [address] [place] [address] Jan, [facility] [address] [place] [id number] [address] [place] [phone] Jan, [facility] [address] [place] [id number] [address] [place] [address] Jan, Sore throat J02.9 and Influe nza A J10.1 [place] [address] [address] [facility] [id number] [address] [place] [phone] Jan, [facility] [place] [id number] [place] [phone] Jan, [place] [address] [address] [facility] [id number] [address] [place] [phone] Jan, [place] [address] [place] [id number] [address] [place] [address] Dec, Encounter for Depo-Provera c ontraception Z30.42 [place] [address] [place] [id number] [address] [place] [phone] Nov, Severe episode of recurrent major depressive disorder, without psychotic features F33.2 and Generalized anxiety disorder F41.1 [place] [address] [place] [id number] [place] [address] Nov, Severe episode of recurrent major depressive disorder, without psychotic features F33.2 ; Generalized anxiety disorder F41.1 and Personality disorder F60.9 [place] [address] [place] [id number] [place] [phone] Oct, Severe episode of recurrent major depressive disorder, without psychotic features F33.2 and Generalized anxiety disorder F41.1 [place] [address] [place] [id number] [address] [place] [phone] Oct, Severe episode of recurrent major depressive disorder, without psychotic features F33.2 ; Generalized anxiety disorder F41.1 and Personality disorder F60.9 [place] [address] [place] [id number] [place] [address] Sep, Severe episode of recurrent major depressive disorder, without psychotic features F33.2 and Generalized anxiety disorder F41.1 [place] [address] [place] [id number] [address] [place] [phone] Sep, Severe episode of recurrent major depressive disorder, without psychotic features F33.2 [place] [address] [place] [id number] [address] [place] [phone] 14 Sep, 2019 Severe episode of recurrent major depressive disorder, without psychotic features F33.2 [facility] [address] [place] [id number] [place] [phone] May, History of gestational hyper tension Z87.59 ; Severe episode of recurrent major depressive disorder, without psychotic features F33.2 ; control counseling Z30.09 and Encounter for Depo-Provera contraception Z30.42 [facility] [address] [place] [id number] [place] [address] Apr, [facility] [address] [phone] Apr, [facility] [address] [place] [id number] [place] [phone] Sep, Acute seasonal allergic rhin itis, unspecified trigger J30.2 and Bronchitis J40 [facility] [address] [place] [id number] [place] [phone] Jun, Encounter for Depo-Provera c ontraception Z30.42 [place] [address] [place] [id number] [place] [address] March, Encounter for Depo-Provera c ontraception Z30.42 [place] [address] [address] March, [facility] [address] [address] Dec, Encounter for Depo-Provera c ontraception Z30.42 ; History of gestational hypertension Z87.59 and depression F53 [facility] [address] [place] [id number] [place] [address] Nov, [facility] [address] [place] [id number] [place] [phone] Nov, depression F53 ; Patient is a currently breast-feeding mother Z39.1 and Anxiety, generalized F41.1 [facility] [address] [id number] [address] [place] [phone] Nov, [facility] [address] [id number] [address] [place] [address] Nov, [facility] [address] [facility] [id number] [address] [place] [address] Nov, [facility] [address] [id number] [address] [place] [phone] Nov, [facility] [address] [id number] [address] [place] [address] Nov, depression F53 an d Anxiety, generalized F41.1 [facility] [address] [facility] [id number] [address] [place] [address] Nov, Anxiety, generalized F41.1 a nd depression F53 [facility] [address] [facility] [id number] [address] [place] [address] Nov, depression F53 an d Generalized anxiety disorder F41.1 [facility] [address] [facility] [id number] [address] [place] [address] Nov, depression F53 [facility] [address] [facility] [id number] [address] [place] [address] Nov, depression F53 an d Patient is a currently breast-feeding mother Z39.1 [facility] [address] [facility] [id number] [address] [place] [phone] Oct, [facility] [address] [id number] [address] [place] [address] Oct, [facility] [address] [facility] [id number] [address] [place] [address] Oct, Chronic hypertension affecti ng O10.919 [facility] [address] [facility] [id number] [address] [place] [address] Oct, [facility] [address] [facility] [id number] [address] [place] [address] 14 Oct, 2016 Proteinuria affecting pregna ncy in third trimester O12.13 ; Chronic hypertension affecting O10.919 and 36 weeks gestation of Z3A.36 [facility] [address] [facility] [id number] [address] [place] [address] 09 Oct, 2016 Elevated blood pressure affe cting in first trimester, antepartum O13.1 [facility] [address] [facility] [id number] [address] [place] [address] 07 Oct, 2016 care, first pregnan cy in third trimester Z34.03 ; Chronic hypertension affecting O10.919 ; 35 weeks gestation of Z3A.35 and STD exposure Z20.2 [place] [address] [facility] [id number] [address] [place] [address] 30 Sep, 2016 Proteinuria affecting pregna ncy in third trimester O12.13 ; Chronic hypertension affecting O10.919 ; care, first in third trimester Z34.03 and 34 weeks gestation of Z3A.34 [place] [address] [facility] [id number] [address] [place] [address] Sep, [place] [address] [facility] [id number] [address] [place] [address] Sep, Proteinuria affecting pregna ncy in third trimester O12.13 ; 33 weeks gestation of Z3A.33 and Chronic hypertension affecting O10.919 [place] [address] [facility] [id number] [address] [place] [address] 16 Sep, 2016 [place] [address] [facility] [id number] [address] [place] [phone] 15 Sep, 2016 [place] [address] [facility] [id number] [address] [place] [address] Sep, Third trimester Z3 3.1 ; 31 weeks gestation of Z3A.31 ; Abnormal quad screen O28.0 ; Proteinuria affecting in third trimester O12.13 and Encounter for immunization Z23 [place] [address] [facility] [id number] [address] [place] [address] Aug, [place] [address] [address] [facility] [id number] [address] [place] [address] 18 Aug, 2016 Proteinuria affecting pregna ncy in third trimester O12.13 ; Third trimester bleeding O46.93 ; Unspecified abdominal pain R10.9 ; Other specified related conditions, unspecified trimester O26.899 and 28 weeks gestation of Z3A.28 [place] [address] [address] [facility] [id number] [address] [place] [address] 13 Aug, 2016 [place] [address] [facility] [id number] [address] [place] [address] 12 Aug, 2016 Syncope, unspecified syncope type R55 ; Hypertension affecting in second trimester O16.2 ; Proteinuria affecting in second trimester O12.12 and 27 weeks gestation of Z3A.27 [place] [address] [address] [facility] [id number] [address] [place] [phone] 07 Aug, 2016 Diabetes mellitus screening Z13.1 ; , first, second trimester Z34.02 and 27 weeks gestation of Z3A.27 [place] [address] [address] [facility] [id number] [address] [place] [phone] 04 Aug, 2016 Hypertension affecting pregn delmy in second trimester O16.2 and Proteinuria affecting in second trimester O12.12 [place] [address] [address] [facility] [id number] [address] [place] [phone] Aug, Hypertension affecting pregn delmy in second trimester O16.2 and Proteinuria affecting in second trimester O12.12 [place] [address] [address] [facility] [id number] [address] [place] [address] Aug, Proteinuria affecting pregna ncy in second trimester O12.12 and Hypertension affecting in second trimester O16.2 [place] [address] [address] [facility] [id number] [address] [place] [address] Aug, Hypertension affecting pregn delmy in second trimester O16.2 [place] [address] [place] [id number] [place] [address] Aug, Hypertension affecting pregn delmy in second trimester O16.2 [place] [address] [place] [id number] [place] [address] Jul, , first, second tri mester Z34.02 ; 25 weeks gestation of Z3A.25 and Encounter for immunization Z23 [place] [address] [place] [id number] [place] [address] Jul, Hypertension affecting pregn delmy in second trimester O16.2 ; Proteinuria affecting in second trimester O12.12 and 22 weeks gestation of Z3A.22 [place] [address] [address] Jul, 21 weeks gestation of pregna ncy Z3A.21 ; Proteinuria affecting in second trimester O12.12 ; Hypertension affecting in second trimester O16.2 and Blurry vision, left eye H53.8 [place] [address] [place] [id number] [place] [address] Jun, , first, second tri mester Z34.02 ; Proteinuria affecting in third trimester O12.13 ; Hypertension affecting , second trimester O16.2 ; 21 weeks gestation of Z3A.21 and Evaluate anatomy not seen on prior sonogram Z36 [place] [address] [place] [id number] [place] [address] Jun, , first, second tri mester Z34.02 ; Hypertension affecting , second trimester O16.2 ; Proteinuria affecting in third trimester O12.13 ; 21 weeks gestation of Z3A.21 and Evaluate anatomy not seen on prior sonogram Z36 [place] [address] [place] [id number] [place] [phone] Jun, Abnormal quad screen O28.0 a nd 17 weeks gestation of Z3A.17 [place] [address] [place] [id number] [address] [place] [address] May, Normal , first Z34. 00 and 17 weeks gestation of Z3A.17 [facility] [address] [id number] [address] [place] [address] Apr, Normal , first Z34. 00 and 12 weeks gestation of Z3A.12 [facility] [address] [facility] [id number] [address] [place] [address] March, heart tones not heard O76 ; 20 weeks gestation of Z3A.20 and , first, second trimester Z34.02 [facility] [address] [facility] [id number] [address] [place] [address] March, [facility] [address] [facility] [id number] [address] [place] [address] March, Encounter for test , result positive Z32.01 [facility] [address] [facility] [id number] [address] [place] [phone] Dec, Low back pain M54.5 ; Sore t hroat J02.9 ; Acute right lower quadrant pain R10.31 and Cough R05 [facility] [address] [id number] [address] [place] [phone] Feb, [facility] [address] [facility] [id number] [address] [place] [phone] Dec, [facility] [address] [id number] [address] [place] [phone] Dec, [facility] [address] [facility] [id number] [address] [place] [phone] Dec, [facility] [address] [facility] [id number] [address] [place] [address] Dec, [facility] [address] [facility] [id number] [address] [place] [phone] Dec, [facility] [address] [facility] [id number] [address] [place] [address] Dec, [facility] [address] [id number] [address] [place] [address] Dec, [facility] [address] [id number] [address] [place] [address] Oct, [facility] [address] [id number] [address] [place] [phone] Oct, [facility] [address] [id number] [address] [place] [address] Aug, [facility] [address] [id number] [address] [place] [address] Aug, [facility] [address] [id number] [address] [place] [address] Aug, [facility] [address] [id number] [address] [place] [phone] Aug, [facility] [address] [id number] [address] [place] [phone] Aug, [facility] [address] [id number] [address] [place] [phone] Aug, [facility] [address] [id number] [address] [place] [phone] Aug, [facility] [address] [id number] [address] [place] [phone] Aug, [facility] [address] [id number] [address] [place] [phone] Aug, [facility] [address] [id number] [address] [place] [address] Jun, [facility] [address] [id number] [address] [place] [address] Jun, IMMUNIZATIONS No Known Immunizations SOCIAL HISTORY Never Assessed REASON FOR VISIT PLAN OF CARE VITAL SIGNS MEDICATIONS Unknown Medications RESULTS No Results PROCEDURES No Known procedures INSTRUCTIONS MEDICATIONS ADMINISTERED No Known Medications MEDICAL (GENERAL) HISTORY Type Description Date Medical History HTN Medical History [place] Pre[place] Medical History Pre-eclampsia in Medical History Post- Depression Medical History depression Medical History depression Medical History Anxiety, generalized Surgical History No Surgical history information Hospitalization History Childbirth
--- OUTSIDE RECORDS SUMMARY | 2020-04-20 10:44 | XMS REPORT ---
Author Author Starr Peraza Organization [facility] Address [address] [place] [address] Care Team Providers Care Electrician Telephone Name Role Phone EBONY Peraza Unavailable PROBLEMS Type Condition ICD9-CM Code UOI99-MR Code Onset Dates Condition S tatus SNOMED Code Problem Severe episode of recurrent major depressive disorder, without psychotic features F33.2 Active 58640405 Problem Personality disorder F60.9 Active 66719059 Problem History of gestational hypertension Z87.59 Active 016040097 Problem Generalized anxiety disorder F41.1 A ctive [id number] Problem Acute seasonal allergic rhinitis, unspecified trigger J30.2 Active [id number] ALLERGIES No Information ENCOUNTERS Encounter Location Date Diagnosis [place] [address] [id number] [place] [phone] Feb, [facility] [address] [place] [id number] [place] [phone] Feb, Generalized anxiety disorder F41.1 ; Severe episode of recurrent major depressive disorder, without psychotic features F33.2 and Personality disorder F60.9 [facility] [id number] [place] [phone] Feb, [facility] [address] [place] [id number] [address] [place] [phone] Jan, Fever of undetermined origin R50.9 [facility] [address] [facility] [id number] [address] [place] [phone] Jan, [facility] [address] [place] [id number] [address] [place] [phone] Jan, [facility] [address] [place] [id number] [address] [place] [phone] Jan, Sore throat J02.9 and Influe nza A J10.1 [place] [address] [address] [facility] [id number] [address] [place] [phone] Jan, [facility] [place] [id number] [place] [phone] Jan, [place] [address] [address] [facility] [id number] [address] [place] [phone] Jan, [place] [address] [address] [place] [id number] [address] [place] [phone] Dec, Encounter for Depo-Provera c ontraception Z30.42 [place] [address] [address] [place] [id number] [address] [place] [phone] Nov, Severe episode of recurrent major depressive disorder, without psychotic features F33.2 and Generalized anxiety disorder F41.1 [place] [address] [place] [id number] [place] [phone] Nov, Severe episode of recurrent major depressive disorder, without psychotic features F33.2 ; Generalized anxiety disorder F41.1 and Personality disorder F60.9 [place] [address] [place] [id number] [place] [phone] Oct, Severe episode of recurrent major depressive disorder, without psychotic features F33.2 and Generalized anxiety disorder F41.1 [place] [address] [address] [place] [id number] [address] [place] [phone] Oct, Severe episode of recurrent major depressive disorder, without psychotic features F33.2 ; Generalized anxiety disorder F41.1 and Personality disorder F60.9 [place] [address] [address] [place] [id number] [address] [place] [phone] Sep, Severe episode of recurrent major depressive disorder, without psychotic features F33.2 and Generalized anxiety disorder F41.1 [place] [address] [address] [place] [id number] [address] [place] [phone] Sep, Severe episode of recurrent major depressive disorder, without psychotic features F33.2 [place] [address] [address] [place] [id number] [address] [place] [phone] 14 Sep, 2019 Severe episode of recurrent major depressive disorder, without psychotic features F33.2 [facility] [address] [place] [id number] [place] [phone] May, History of gestational hyper tension Z87.59 ; Severe episode of recurrent major depressive disorder, without psychotic features F33.2 ; control counseling Z30.09 and Encounter for Depo-Provera contraception Z30.42 [facility] [address] [place] [id number] [address] [place] [phone] Apr, [facility] [address] [address] Apr, [facility] [address] [place] [id number] [place] [phone] Sep, Acute seasonal allergic rhin itis, unspecified trigger J30.2 and Bronchitis J40 [facility] [address] [place] [id number] [place] [phone] Jun, Encounter for Depo-Provera c ontraception Z30.42 [place] [address] [address] [place] [id number] [place] [phone] March, Encounter for Depo-Provera c ontraception Z30.42 [place] [address] [address] March, [facility] [address] [address] Dec, Encounter for Depo-Provera c ontraception Z30.42 ; History of gestational hypertension Z87.59 and depression F53 [facility] [address] [place] [id number] [place] [phone] Nov, [facility] [address] [place] [id number] [place] [address] Nov, depression F53 ; Patient is a currently breast-feeding mother Z39.1 and Anxiety, generalized F41.1 [facility] [address] [id number] [address] [place] [phone] Nov, [facility] [address] [id number] [address] [place] [phone] Nov, [facility] [address] [facility] [id number] [address] [place] [phone] Nov, [facility] [address] [id number] [address] [place] [phone] Nov, [facility] [address] [id number] [address] [place] [phone] Nov, depression F53 an d Anxiety, generalized F41.1 [facility] [address] [facility] [id number] [address] [place] [phone] Nov, Anxiety, generalized F41.1 a nd depression F53 [facility] [address] [facility] [id number] [address] [place] [phone] Nov, depression F53 an d Generalized anxiety disorder F41.1 [facility] [address] [facility] [id number] [address] [place] [phone] Nov, depression F53 [facility] [address] [facility] [id number] [address] [place] [phone] Nov, depression F53 an d Patient is a currently breast-feeding mother Z39.1 [facility] [address] [facility] [id number] [address] [place] [phone] Oct, [facility] [address] [id number] [address] [place] [phone] Oct, [facility] [address] [facility] [id number] [address] [place] [address] Oct, Chronic hypertension affecti ng O10.919 [facility] [address] [facility] [id number] [address] [place] [phone] Oct, [facility] [address] [facility] [id number] [address] [place] [phone] 14 Oct, 2016 Proteinuria affecting pregna ncy in third trimester O12.13 ; Chronic hypertension affecting O10.919 and 36 weeks gestation of Z3A.36 [facility] [address] [facility] [id number] [address] [place] [phone] 09 Oct, 2016 Elevated blood pressure affe cting in first trimester, antepartum O13.1 [facility] [address] [facility] [id number] [address] [place] [phone] 07 Oct, 2016 care, first pregnan cy in third trimester Z34.03 ; Chronic hypertension affecting O10.919 ; 35 weeks gestation of Z3A.35 and STD exposure Z20.2 [place] [address] [facility] [id number] [address] [place] [address] 30 Sep, 2016 Proteinuria affecting pregna ncy in third trimester O12.13 ; Chronic hypertension affecting O10.919 ; care, first in third trimester Z34.03 and 34 weeks gestation of Z3A.34 [place] [address] [facility] [id number] [address] [place] [phone] Sep, [place] [address] [facility] [id number] [address] [place] [phone] Sep, Proteinuria affecting pregna ncy in third trimester O12.13 ; 33 weeks gestation of Z3A.33 and Chronic hypertension affecting O10.919 [place] [address] [facility] [id number] [address] [place] [phone] 16 Sep, 2016 [place] [address] [facility] [id number] [address] [place] [phone] 15 Sep, 2016 [place] [address] [facility] [id number] [address] [place] [phone] Sep, Third trimester Z3 3.1 ; 31 weeks gestation of Z3A.31 ; Abnormal quad screen O28.0 ; Proteinuria affecting in third trimester O12.13 and Encounter for immunization Z23 [place] [address] [facility] [id number] [address] [place] [phone] Aug, [place] [address] [address] [facility] [id number] [address] [place] [phone] 18 Aug, 2016 Proteinuria affecting pregna ncy in third trimester O12.13 ; Third trimester bleeding O46.93 ; Unspecified abdominal pain R10.9 ; Other specified related conditions, unspecified trimester O26.899 and 28 weeks gestation of Z3A.28 [place] [address] [address] [facility] [id number] [address] [place] [phone] 13 Aug, 2016 [place] [address] [address] [facility] [id number] [address] [place] [phone] 12 Aug, 2016 Syncope, unspecified syncope type R55 ; Hypertension affecting in second trimester O16.2 ; Proteinuria affecting in second trimester O12.12 and 27 weeks gestation of Z3A.27 [place] [address] [address] [facility] [id number] [address] [place] [phone] 07 Aug, 2016 Diabetes mellitus screening Z13.1 ; , first, second trimester Z34.02 and 27 weeks gestation of Z3A.27 [place] [address] [address] [facility] [id number] [address] [place] [phone] 04 Aug, 2016 Hypertension affecting pregn delmy in second trimester O16.2 and Proteinuria affecting in second trimester O12.12 [place] [address] [address] [facility] [id number] [address] [place] [phone] Aug, Hypertension affecting pregn delmy in second trimester O16.2 and Proteinuria affecting in second trimester O12.12 [place] [address] [address] [facility] [id number] [address] [place] [phone] Aug, Proteinuria affecting pregna ncy in second trimester O12.12 and Hypertension affecting in second trimester O16.2 [place] [address] [address] [facility] [id number] [address] [place] [phone] Aug, Hypertension affecting pregn delmy in second trimester O16.2 [place] [address] [place] [id number] [place] [phone] Aug, Hypertension affecting pregn delmy in second trimester O16.2 [place] [address] [address] [place] [id number] [address] [place] [phone] Jul, , first, second tri mester Z34.02 ; 25 weeks gestation of Z3A.25 and Encounter for immunization Z23 [place] [address] [address] [place] [id number] [address] [place] [address] Jul, Hypertension affecting pregn delmy in second trimester O16.2 ; Proteinuria affecting in second trimester O12.12 and 22 weeks gestation of Z3A.22 [place] [address] [address] Jul, 21 weeks gestation of pregna ncy Z3A.21 ; Proteinuria affecting in second trimester O12.12 ; Hypertension affecting in second trimester O16.2 and Blurry vision, left eye H53.8 [place] [address] [place] [id number] [place] [address] Jun, , first, second tri mester Z34.02 ; Proteinuria affecting in third trimester O12.13 ; Hypertension affecting , second trimester O16.2 ; 21 weeks gestation of Z3A.21 and Evaluate anatomy not seen on prior sonogram Z36 [place] [address] [address] [place] [id number] [place] [address] Jun, , first, second tri mester Z34.02 ; Hypertension affecting , second trimester O16.2 ; Proteinuria affecting in third trimester O12.13 ; 21 weeks gestation of Z3A.21 and Evaluate anatomy not seen on prior sonogram Z36 [place] [address] [place] [id number] [place] [phone] Jun, Abnormal quad screen O28.0 a nd 17 weeks gestation of Z3A.17 [place] [address] [address] [place] [id number] [address] [place] [phone] May, Normal , first Z34. 00 and 17 weeks gestation of Z3A.17 [facility] [address] [id number] [address] [place] [phone] Apr, Normal , first Z34. 00 and 12 weeks gestation of Z3A.12 [facility] [address] [facility] [id number] [address] [place] [phone] March, heart tones not heard O76 ; 20 weeks gestation of Z3A.20 and , first, second trimester Z34.02 [facility] [address] [facility] [id number] [address] [place] [phone] March, [facility] [address] [facility] [id number] [address] [place] [phone] March, Encounter for test , result positive Z32.01 [facility] [address] [facility] [id number] [address] [place] [phone] Dec, Low back pain M54.5 ; Sore t hroat J02.9 ; Acute right lower quadrant pain R10.31 and Cough R05 [facility] [address] [id number] [address] [place] [phone] Feb, [facility] [address] [facility] [id number] [address] [place] [phone] Dec, [facility] [address] [id number] [address] [place] [phone] Dec, [facility] [address] [facility] [id number] [address] [place] [phone] Dec, [facility] [address] [facility] [id number] [address] [place] [phone] Dec, [facility] [address] [facility] [id number] [address] [place] [phone] Dec, [facility] [address] [facility] [id number] [address] [place] [phone] Dec, [facility] [address] [id number] [address] [place] [phone] Dec, [facility] [address] [id number] [address] [place] [phone] Oct, [facility] [address] [id number] [address] [place] [phone] Oct, [facility] [address] [id number] [address] [place] [phone] Aug, [facility] [address] [id number] [address] [place] [phone] Aug, [facility] [address] [id number] [address] [place] [phone] Aug, [facility] [address] [id number] [address] [place] [phone] Aug, [facility] [address] [id number] [address] [place] [phone] Aug, [facility] [address] [id number] [address] [place] [phone] Aug, [facility] [address] [id number] [address] [place] [phone] Aug, [facility] [address] [id number] [address] [place] [phone] Aug, [facility] [address] [id number] [address] [place] [phone] Aug, [facility] [address] [id number] [address] [place] [phone] Jun, [facility] [address] [id number] [address] [place] [phone] Jun, IMMUNIZATIONS No Known Immunizations SOCIAL HISTORY Never Assessed REASON FOR VISIT PLAN OF CARE VITAL SIGNS Height 71 in 2013-07-18 Weight 215.9 lbs 2013-07-18 Temperature 97.9 degrees Fahrenheit 2013-07-18 Heart Rate 88 bpm 2013-07-18 Respiratory Rate 16 2013-07-18 Blood pressure systolic 126 mmHg 2013-07-18 Blood pressure diastolic 70 mmHg 2013-07-18 MEDICATIONS Unknown Medications RESULTS No Results PROCEDURES Procedure Date Ordered Result Body Site URINE TEST Jul 18, 2013 URINALYSIS, AUTO, W/O SCOPE Jul 18, 2013 INSTRUCTIONS MEDICATIONS ADMINISTERED No Known Medications MEDICAL (GENERAL) HISTORY Type Description Date Medical History HTN Medical History [place] Medical History Pre-eclampsia in Medical History Post- Depression Medical History depression Medical History depression Medical History Anxiety, generalized Surgical History No Surgical history information Hospitalization History Childbirth
--- OUTSIDE RECORDS SUMMARY | 2020-04-20 10:45 | XMS REPORT | Continuity of Care Document ---
Demographics Preferred Language Unknown Marital Status Unknown Taoism Affiliation Unknown Race Unknown Ethnic Group Unknown Author Organization Unknown Address Unknown Phone Unavailable Allergies Active Description Code Type Severity Reaction Onset Reported/Identified Relationship to Patient Clinical Status Yes No Known Drug Allergies [id number] Drug Allergy Unknown N/A 03/29/2012 Yes diphenhydramine [id number] D rug Allergy Unknown N/A 10/25/2019 Medications There is no data. Problems Date Dx Coded Attending Type Code Diagnosis Diagnosed By 02/22/2011 626.4 IRRE GULAR MENSTRUAL CYCLE 02/22/2011 V65.45 STD COUNSELING 02/22/2011 V72.31 GAS MAIN FITTER HELPER EXAM, ROUTINE 02/22/2011 V74.5 STD SCREEN 02/22/2011 EBONY CARRIZALES APRN A 62 6.4 IRREGULAR MENSTRUAL CYCLE 02/22/2011 EBONY CARRIZALES APRN A V65.45 STD COUNSELING 02/22/2011 ALL CARRIZALES APRNIDI A V72.31 GAS MAIN FITTER HELPER EXAM, ROUTINE 02/22/2011 ALL CARRIZALES APRNIDI A V7 4.5 STD SCREEN 02/22/2011 ALL CARRIZALES APRNIDI A 62 6.4 IRREGULAR MENSTRUAL CYCLE 02/22/2011 ALL CARRIZALES APRNIDI A V65.45 STD COUNSELING 02/22/2011 ALL CARRIZALES APRNIDI A V72.31 GAS MAIN FITTER HELPER EXAM, ROUTINE 02/22/2011 ALL CARRIZALES APRNIDI A V7 4.5 STD SCREEN 03/29/2012 Ot 305.20 CAN NABIS ABUSE- UNSPEC 03/29/2012 Ot 780.2 SYNC OPE AND COLLAPSE 03/29/2012 Ot 923.11 CON TUSION OF ELBOW 03/29/2012 Ot E000.0 CIV LOKESH ACTIVITY DONE FOR INCOME OR PAY 03/29/2012 Ot E849.6 ACC IDENT IN PUBLIC BLDG 03/29/2012 Ot E888.9 FAL L NOS 07/18/2013 564.00 CON STIPATION 07/18/2013 789.04 ABD OMINAL PAIN LEFT LOWER QUADRANT 07/18/2013 EBONY CARRIZALES APRN 564.00 CONSTIPATION 07/18/2013 ALL WAGGONER, EBONY A 789.04 ABDOMINAL PAIN LEFT LOWER QUADRANT 07/18/2013 ALL WAGGONER, EBONY A 564.00 CONSTIPATION 07/18/2013 ALL WAGGONER, EBONY A 789.04 ABDOMINAL PAIN LEFT LOWER QUADRANT 08/28/2013 ALL WAGGONER, EBONY A 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.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 08/28/2013 ALL WAGGONER, EBONY A V76.10 BREAST CANCER SCREENING 08/28/2013 ALL WAGGONER, EBONY A V7 6.2 CERVICAL CANCER SCREENING (PAP SMEAR) 08/28/2013 ALL WAGGONER, EBONY A 131.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 08/28/2013 ALL WAGGONER, EBONY A V76.10 BREAST CANCER SCREENING 08/28/2013 ALL WAGGONER, EBONY A V7 6.2 CERVICAL CANCER SCREENING (PAP SMEAR) 12/29/2014 ALL CARRIZALES APRNIDI A 611.71 MASTODYNIA 12/29/2014 ALL WAGGONER, EBONY A 787.01 NAUSEA WITH VOMITING 12/29/2014 ALL WAGGONER, EBONY A 787.91 DIARRHEA 12/29/2014 ALL WAGGONER, EBONY A V73.81 HPV SCREENING 10/30/2015 EDDIE ESTRADA, RALPH Moreno Ot F17.210 NICOTINE DEPENDENCE, CIGARETTES, UNCOMPL 10/30/2015 EDDIE ESTRADA, RALPH Moreno Ot R10. 11 RIGHT UPPER QUADRANT PAIN 01/26/2016 BEVERLY SALTER Ot J 40 BRONCHITIS, NOT SPECIFIED ACUTE OR CH 01/26/2016 BEVERLY SALTER Ot R10.31 RIGHT LOWER QUADRANT PAIN 04/26/2016 MAURA CHATTERJEE MD, Ot Z33 .1 STATE, INCIDENTAL 04/26/2016 MAURA CHATTERJEE MD, Ot Z3A.08 8 WEEKS GESTATION OF 04/27/2016 MAURA CHATTERJEE MD, Ot Z33 .1 STATE, INCIDENTAL 04/27/2016 MAURA CHATTERJEE MD, Ot Z3A.08 8 WEEKS GESTATION OF 07/13/2016 MAURA CHATTERJEE MD Ot Z33 .1 STATE, INCIDENTAL 07/13/2016 SEN MD, MAURA N Ot Z3A.08 8 WEEKS GESTATION OF 07/14/2016 MAURA CHATTERJEE MD, Ot Z34.00 ENCNTR FOR SUPRVSN OF NORMAL FIRST PREGN 08/08/2016 MAURA CHATTERJEE MD Ot Z34.82 ENCOUNTER FOR SUPRVSN OF NORMAL PREGNANC 08/08/2016 MAURA CHATTERJEE MD Ot Z36 ENCOUNTER FOR SCREENING OF MOT 08/08/2016 MAURA CHATTERJEE MD Ot Z3A.22 22 WEEKS GESTATION OF 08/08/2016 MAURA CHATTERJEE MD, Ot Z34.82 ENCOUNTER FOR SUPRVSN OF NORMAL PREGNANC 08/08/2016 MAURA CHATTERJEE MD Ot Z36 ENCOUNTER FOR SCREENING OF MOT 08/08/2016 MAURA CHATTERJEE MD, Ot Z3A.22 22 WEEKS GESTATION OF 09/06/2016 MAURA CHATTERJEE MD, Ot Z33 .1 STATE, INCIDENTAL 09/06/2016 MAURA CHATTERJEE MD, Ot Z3A.08 8 WEEKS GESTATION OF 09/06/2016 MAURA CHATTERJEE MD, Ot Z34.00 ENCNTR FOR SUPRVSN OF NORMAL FIRST PREGN 09/06/2016 MAUAR CHATTERJEE MD, Ot Z34.82 ENCOUNTER FOR SUPRVSN OF NORMAL PREGNANC 09/06/2016 MAURA CHATTERJEE MD Ot Z36 ENCOUNTER FOR SCREENING OF MOT 09/06/2016 MAURA CHATTERJEE MD, Ot Z3A.22 22 WEEKS GESTATION OF 09/06/2016 MAURA CHATTERJEE MD, Ot O9A.213 INJ/POISN/OTH CONSEQ OF EXTERNAL CAUSES 09/06/2016 MAURA CHATTERJEE MD, Ot R55 SYNCOPE AND COLLAPSE 09/06/2016 MAURA CHATTERJEE MD, Ot W19.XXXA UNSPECIFIED FALL, INITIAL ENCOUNTER 09/06/2016 MAURA CHATTERJEE MD, Ot Y99 .8 OTHER EXTERNAL CAUSE STATUS 09/06/2016 MAURA CHATTERJEE MD Ot Z3A.28 28 WEEKS GESTATION OF 09/12/2016 NELSY SWEENEY DO Ot O26.85 3 SPOTTING COMPLICATING , THIRD T 09/12/2016 NELSY SWEENEY DO Ot Z3A.28 28 WEEKS GESTATION OF 09/15/2016 MAURA CHATTERJEE MD Ot Z33 .1 STATE, INCIDENTAL 09/15/2016 MAURA CHATTERJEE MD Ot Z3A.08 8 WEEKS GESTATION OF 09/15/2016 MAURA CHATTERJEE MD Ot Z34.00 ENCNTR FOR SUPRVSN OF NORMAL FIRST PREGN 09/15/2016 MAURA CHATTREJEE MD Ot Z34.82 ENCOUNTER FOR SUPRVSN OF [...] WEEKS OF GESTATION OF NOT SPEC 09/27/2016 SWEENEY DOOSCARA K Ot O26.85 3 SPOTTING COMPLICATING , THIRD T 09/27/2016 SWEENEY DOOSCARA K Ot Z3A.28 28 WEEKS GESTATION OF 09/30/2016 MAURA CHATTERJEE MD Ot Z33 .1 STATE, INCIDENTAL 09/30/2016 MAURA CHATTERJEE MD Ot [...] WEEKS OF GESTATION OF NOT SPEC 09/30/2016 GONZALEZ, PETER J BREAKING MACHINE OPERATOR Ot F17.210 NICOTINE DEPENDENCE, CIGARETTES, UNCOMPL 09/30/2016 ADELA GONZALEZ BREAKING MACHINE OPERATOR Ot K04 .7 PERIAPICAL ABSCESS WITHOUT SINUS 09/30/2016 ADELA GONZALEZ BREAKING MACHINE OPERATOR Ot O23.43 UNSP INFCT OF URINARY TRACT IN 09/30/2016 ADELA GONZALEZ BREAKING MACHINE OPERATOR Ot O26.893 OTH RELATED CONDITIONS, THIRD 09/30/2016 ADELA GONAZLEZ BREAKING MACHINE OPERATOR Ot O99.333 SMOKING (TOBACCO) COMPLICATING 09/30/2016 ADELA GONZALEZ BREAKING MACHINE OPERATOR Ot O99.89 OTH DISEASES AND CONDITIONS COMPL PREG/C 09/30/2016 ADELA GONZALEZ BREAKING MACHINE OPERATOR Ot R10.30 LOWER ABDOMINAL PAIN, UNSPECIFIED 09/30/2016 ADELA GONZALEZ BREAKING MACHINE OPERATOR Ot R11 .2 NAUSEA WITH VOMITING, UNSPECIFIED 09/30/2016 ADELA GONZALEZ APRN Ot Z3A.31 31 WEEKS GESTATION OF 10/03/2016 ADELA GONZALEZ APRN Ot F17.210 NICOTINE DEPENDENCE, CIGARETTES, UNCOMPL 10/03/2016 ADELA GONZALEZ APRN Ot K04 .7 PERIAPICAL ABSCESS WITHOUT SINUS 10/03/2016 ADELA GONZALEZ BREAKING MACHINE OPERATOR Ot O23.43 UNSP INFCT OF URINARY TRACT IN 10/03/2016 ADELA GONZALEZ APRN Ot O26.893 OTH RELATED CONDITIONS, THIRD 10/03/2016 ADELA GONZALEZ BREAKING MACHINE OPERATOR Ot O99.333 SMOKING (TOBACCO) COMPLICATING 10/03/2016 ADELA GONZALEZ APRN Ot O99.89 OTH DISEASES AND CONDITIONS COMPL PREG/C 10/03/2016 ADELA GONZALEZ BREAKING MACHINE OPERATOR Ot R10.30 LOWER ABDOMINAL PAIN, UNSPECIFIED 10/03/2016 ADELA GONZALEZ BREAKING MACHINE OPERATOR Ot R11 .2 NAUSEA WITH VOMITING, UNSPECIFIED 10/03/2016 ADELA GONZALEZ [...] GESTATION OF 10/27/2016 MAURA CHATTERJEE MD Ot Z34.82 ENCOUNTER FOR SUPRVSN OF NORMAL PREGNANC 10/27/2016 MAURA CHATTERJEE MD Ot Z36 ENCOUNTER FOR SCREENING OF MOT 10/27/2016 MAURA CHATTERJEE MD Ot Z3A.22 22 WEEKS GESTATION OF 10/27/2016 MAURA CHATTERJEE MD Ot O28 .0 ABNORMAL HEMATOLOG FINDING ON 10/30/2016 SWEENEY DOOSCARA K Ot O47.03 FALSE LABOR BEFORE 37 COMPLETED WEEKS OF 10/30/2016 SWEENEY DOOSCARA K Ot Z3A.35 35 WEEKS GESTATION OF 11/03/2016 MAURA CHATTERJEE MD Ot O28 .0 ABNORMAL HEMATOLOG FINDING ON 11/03/2016 MAURA CHATTERJEE [...] J02.9 ACUTE PHARYNGITIS, UNSPECIFIED 11/09/2016 RAJAN VALLES MD Ot J06.9 ACUTE UPPER RESPIRATORY INFECTION, UNSPE 11/09/2016 RAJAN VALLES MD Ot O14.93 UNSPECIFIED PRE-ECLAMPSIA, THIRD TRIMEST 11/09/2016 RAJAN VALLES MD Ot O99.333 SMOKING (TOBACCO) COMPLICATING 11/09/2016 RAJAN VALLES MD Ot O99.513 DISEASES OF THE RESP SYS COMP , 11/09/2016 MAURA CHATTERJEE MD Ot O28 .0 ABNORMAL HEMATOLOG FINDING ON 11/09/2016 MAURA CHATTERJEE MD Ot Z3A.34 34 WEEKS GESTATION OF 11/12/2016 ARLETH LEVY MD, Ot F17.210 NICOTINE DEPENDENCE, CIGARETTES, UNCOMPL 11/12/2016 ARLETH LEVY MD, Ot O14. 03 MILD TO MODERATE PRE-ECLAMPSIA, THIRD TR 11/12/2016 ARLETH LEVY MD, Ot O99.333 SMOKING (TOBACCO) COMPLICATING 11/12/2016 ARLETH LEVY MD, Ot Z3A. 37 37 WEEKS GESTATION OF 11/14/2016 ARLETH LEVY MD, Ot F17.210 NICOTINE DEPENDENCE, CIGARETTES, UNCOMPL 11/14/2016 ARLETH LEVY MD, Ot O14. 03 MILD TO MODERATE PRE-ECLAMPSIA, THIRD TR 11/14/2016 ARLETH LEVY MD, Ot O99.333 SMOKING (TOBACCO) COMPLICATING 11/14/2016 ARLETH LEVY MD, Ot Z3A. 37 37 WEEKS GESTATION OF 11/14/2016 MAURA CHATTERJEE MD Ot O28 .0 ABNORMAL HEMATOLOG FINDING ON 11/14/2016 MAURA CHATTERJEE MD Ot Z3A.34 34 WEEKS GESTATION OF 11/14/2016 MAURA CHATTERJEE MD Ot O28 .0 ABNORMAL HEMATOLOG FINDING ON 11/14/2016 MAURA CHATTERJEE MD Ot Z3A.34 34 WEEKS GESTATION OF 11/15/2016 OSCAR SWEENEY DOA K Ot O47.03 FALSE LABOR BEFORE 37 COMPLETED WEEKS OF 11/15/2016 OSCAR SWEENEY DOA K Ot Z3A.35 35 WEEKS GESTATION OF 11/17/2016 MAURA CHATTERJEE MD Ot F17.210 NICOTINE DEPENDENCE, CIGARETTES, UNCOMPL 11/17/2016 MAURA CHATTERJEE MD Ot O10.013 PRE-EXISTING ESSENTIAL HTN COMP PREGNANC 11/17/2016 MAURA CHATTERJEE MD Ot O41.03X0 OLIGOHYDRAMNIOS, THIRD TRIMESTER, NOT AP 11/17/2016 MAURA CHATTERJEE MD Ot O70 .0 FIRST DEGREE PERINEAL LACERATION DURING 11/17/2016 MAURA CHATTERJEE MD Ot O72 .1 OTHER IMMEDIATE HEMORRHAGE 11/17/2016 MAURA CHATTERJEE MD Ot O76 ABNLT IN HEART RATE AND RHYTHM COM 11/17/2016 MAURA CHATTERJEE MD, Ot O99.333 SMOKING (TOBACCO) COMPLICATING 11/17/2016 MAURA CHATTERJEE MD Ot Z37 .0 SINGLE LIVE 11/17/2016 MAURA CHATTERJEE MD, Ot Z3A.37 37 WEEKS GESTATION OF 01/22/2017 MAURA CHATTERJEE MD Ot O13 .3 GESTATIONAL HTN W/O SIGNIFICANT PROTEINU 01/22/2017 MAURA CHATTERJEE MD Ot O28 .0 ABNORMAL HEMATOLOG FINDING ON 01/22/2017 MAURA CHATTERJEE MD, Ot Z3A.34 34 WEEKS GESTATION OF 01/25/2017 MAURA CHATTERJEE MD Ot O28 .0 ABNORMAL HEMATOLOG FINDING ON 01/25/2017 MAURA CHATTERJEE MD, Ot Z3A.34 34 WEEKS GESTATION OF 09/25/2017 MAURA CHATTERJEE MD Ot Z33 .1 STATE, INCIDENTAL 09/25/2017 MAURA CHATTERJEE MD Ot Z3A.08 8 WEEKS GESTATION OF 09/25/2017 MAURA CHATTERJEE MD, Ot Z34.00 ENCNTR FOR SUPRVSN OF NORMAL FIRST PREGN 09/25/2017 MAURA CHATTERJEE MD Ot Z34.82 ENCOUNTER FOR SUPRVSN OF NORMAL PREGNANC 09/25/2017 MAURA CHATTERJEE MD Ot Z36 ENCOUNTER FOR SCREENING OF MOT 09/25/2017 MAURA CHATTERJEE MD Ot Z3A.22 22 WEEKS GESTATION OF 09/25/2017 MAURA CHATTERJEE MD, Ot O46.93 ANTEPARTUM HEMORRHAGE, UNSPECIFIED, THIR 09/25/2017 MAURA CHATTERJEE MD, Ot Z3A.00 WEEKS OF GESTATION OF NOT SPEC 09/25/2017 MAURA CHATTERJEE MD Ot O28 .0 ABNORMAL HEMATOLOG FINDING ON 09/25/2017 MAURA CHATTERJEE MD Ot O28 .0 ABNORMAL HEMATOLOG FINDING ON 09/25/2017 MAURA CHATTERJEE MD Ot Z3A.34 34 WEEKS GESTATION OF 09/27/2017 ADELA GONZALEZ BREAKING MACHINE OPERATOR Ot F31 .9 BIPOLAR DISORDER, UNSPECIFIED 09/27/2017 ADELA GONZALEZ BREAKING MACHINE OPERATOR Ot F41 .9 ANXIETY DISORDER, UNSPECIFIED 09/27/2017 ADELA GONZALEZ BREAKING MACHINE OPERATOR Ot J40 BRONCHITIS, NOT SPECIFIED ACUTE OR CH 09/27/2017 ADELA GONZALEZ BREAKING MACHINE OPERATOR Ot R05 COUGH 09/27/2017 ADELA GONZALEZ BREAKING MACHINE OPERATOR Ot Z80 .0 FAMILY HISTORY OF MALIGNANT NEOPLASM OF 09/27/2017 ADELA GONZALEZ BREAKING MACHINE OPERATOR Ot Z87.891 PERSONAL HISTORY OF NICOTINE DEPENDENCE 10/01/2017 ADELA GONZALEZ BREAKING MACHINE OPERATOR Ot F31 .9 BIPOLAR DISORDER, UNSPECIFIED 10/01/2017 ADELA GONZALEZ BREAKING MACHINE OPERATOR Ot F41 .9 ANXIETY DISORDER, UNSPECIFIED 10/01/2017 ADELA GONZALEZ BREAKING MACHINE OPERATOR Ot J40 BRONCHITIS, NOT SPECIFIED ACUTE OR CH 10/01/2017 ADELA GONZALEZ BREAKING MACHINE OPERATOR Ot R05 COUGH 10/01/2017 ADELA GONZALEZ BREAKING MACHINE OPERATOR Ot Z80 .0 FAMILY HISTORY OF MALIGNANT NEOPLASM OF 10/01/2017 ADELA GONZALEZ BREAKING MACHINE OPERATOR Ot Z87.891 PERSONAL HISTORY OF NICOTINE DEPENDENCE 10/03/2018 GRISELDA RUBIOIS Ot F17.210 NICOTINE DEPENDENCE, CIGARETTES, UNCOMPL 10/03/2018 GRISELDA RUBIOIS Ot F31.9 BIPOLAR DISORDER, UNSPECIFIED 10/03/2018 BERNGRISELDA CHAMBERSIS Ot F41.9 ANXIETY DISORDER, UNSPECIFIED 10/03/2018 GRISELDA RUBIOIS Ot J06.9 ACUTE UPPER RESPIRATORY INFECTION, UNSPE 10/03/2018 BERNOTGRISELDAIS Ot N39.0 URINARY TRACT INFECTION, SITE NOT SPECIF 10/03/2018 BERNRGISELDA CHAMBERSIS Ot R05 COUGH 10/03/2018 GRISELDA RUBIOIS Ot Z80.0 FAMILY HISTORY OF MALIGNANT NEOPLASM OF 10/05/2018 BERNOT CLAY Ot F17.210 NICOTINE DEPENDENCE, CIGARETTES, UNCOMPL 10/05/2018 BERNGRISELDA CHAMBERSIS Ot F31.9 BIPOLAR DISORDER, UNSPECIFIED 10/05/2018 BERNGRISELDA CHAMBERSIS Ot F41.9 ANXIETY DISORDER, UNSPECIFIED 10/05/2018 BERNGRISELDA CHAMBERSIS Ot J06.9 ACUTE UPPER RESPIRATORY INFECTION, UNSPE 10/05/2018 BERNOT CLAY Ot N39.0 URINARY TRACT INFECTION, SITE NOT SPECIF 10/05/2018 CLAY RUBIO Ot R05 COUGH 10/05/2018 GRISELDA RUBIOIS Ot Z80.0 FAMILY HISTORY OF MALIGNANT NEOPLASM OF 02/22/2019 GRISELDA RUBIOIS Ot F17.210 NICOTINE DEPENDENCE, CIGARETTES, UNCOMPL 02/22/2019 GRISELDA RUBIOIS Ot F31.9 BIPOLAR DISORDER, UNSPECIFIED 02/22/2019 GRISELDA RUBIOIS Ot F41.9 ANXIETY DISORDER, UNSPECIFIED 02/22/2019 GRISELDA RUBIOIS Ot J06.9 ACUTE UPPER RESPIRATORY INFECTION, UNSPE 02/22/2019 CLAY RUBIO Ot N39.0 URINARY TRACT INFECTION, SITE NOT SPECIF 02/22/2019 CLAY RUBIO Ot R05 COUGH 02/22/2019 CLAY RUBIO Ot Z80.0 FAMILY HISTORY OF MALIGNANT NEOPLASM OF 05/10/2019 RAJAN VALLES MD, Ot F31.9 BIPOLAR DISORDER, UNSPECIFIED 05/10/2019 RAJAN VALLES MD, Ot F41.9 ANXIETY DISORDER, UNSPECIFIED 05/10/2019 RAJAN VALLES MD Ot H92.02 OTALGIA, LEFT EAR 05/10/2019 RAJAN VALLES MD Ot I10 ESSENTIAL (PRIMARY) HYPERTENSION 05/10/2019 RAJAN VALLES MD, Ot J06.9 ACUTE UPPER RESPIRATORY INFECTION, UNSPE 05/10/2019 RAJAN VALLES MD Ot Z80.0 FAMILY HISTORY OF MALIGNANT NEOPLASM OF 05/10/2019 RAJAN VALLES MD Ot Z82.49 FAMILY HX OF ISCHEM HEART DIS AND OTH DI 05/10/2019 RAJAN VALLES MD Ot Z87.891 PERSONAL HISTORY OF NICOTINE DEPENDENCE 10/25/2019 MAURA CHATTERJEE MD Ot O28 .0 ABNORMAL HEMATOLOG FINDING ON 10/25/2019 MAURA CHATTERJEE MD Ot Z3A.34 34 WEEKS GESTATION OF 10/29/2019 JUSTYNA NUÑEZ MD Ot F17.210 NICOTINE DEPENDENCE, CIGARETTES, UNCOMPL 10/29/2019 JUSTYNA NUÑEZ MD Ot F31. 9 BIPOLAR DISORDER, UNSPECIFIED 10/29/2019 JUSTYNA NUÑEZ MD Ot F41. 9 ANXIETY DISORDER, UNSPECIFIED 10/29/2019 JUSTYNA NUÑEZ MD Ot I10 ESSENTIAL (PRIMARY) HYPERTENSION 10/29/2019 JUSTYNA NUÑEZ MD, Ot J40 BRONCHITIS, NOT SPECIFIED ACUTE OR CH 10/29/2019 JUSTYNA NUÑEZ MD Ot R05 COUGH 10/29/2019 JUSTYNA NUÑEZ MD, Ot Z80. 0 FAMILY HISTORY OF MALIGNANT NEOPLASM OF 10/29/2019 JUSTYNA NUÑEZ MD, Ot Z82. 49 FAMILY HX OF ISCHEM HEART DIS AND OTH DI 10/29/2019 JUSTYNA NUÑEZ MD, Ot Z88. 8 ALLERGY STATUS TO OTH DRUG/MEDS/BIOL SUB Procedures Code Description [place] [address] URIN E TEST (IN- HOUSE) 07/18/2013 25148 UA W / CULTURE IF INDICATED 07/18/2013 [id number] HCG QUALITATIVE W/ REFLEX 07/18/2013 16012 CULT URE UROGENITAL 08/28/2013 34252 GC/C HLAM PROBE ([facility]) 08/28/2013 54987 PAP SMEAR 08/28/2013 Q0091 PAP SMEAR OBTAIN SMEAR 08/28/2013 15705 TRIC HOMONAS (IN-HOUSE) 08/28/2013 [id number] RE PAIR PERINEUM SKIN, EXTERNAL APPROACH 11/15/2016 [id number] DE LIVERY OF PRODUCTS OF CONCEPTION, EXTE 11/15/2016 Results Test Result Range CBC With Differential/Platelet - 6 10:00 WBC 10.0 x10E3/uL 3.4-10.8 RBC 4.26 x10E6/uL 3.77-5.28 Hemoglobin 13.2 g/dL 11.1-15.9 Hematocrit 38.1 % 34.0-46.6 MCV 89 fL 79-97 MCH 31.0 pg 26.6-33.0 MCHC 34.6 g/dL 31.5-35.7 RDW 13.3 % 12.3-15.4 Platelets 175 x10E3/uL 150-379 Neutrophils 72 % Lymphs 18 % Monocytes 8 % Eos 2 % Basos 0 % Neutrophils (Absolute) 7.2 x10E3/uL 1.4- 7.0 Lymphs (Absolute) 1.8 x10E3/uL 0.7-3.1 Monocytes(Absolute) 0.8 x10E3/uL 0.1-0.9 Eos (Absolute) 0.2 x10E3/uL 0.0-0.4 Baso (Absolute) 0.0 x10E3/uL 0.0-0.2 Immature Granulocytes 0 % Immature Grans (Abs) 0.0 x10E3/uL 0.0-0. 1 Comp. Metabolic Panel (14) - 08/30/16 10 :00 Glucose, Serum 100 mg/dL 65-99 BUN 6 mg/dL 6-20 Creatinine, Serum 0.55 mg/dL 0.57-1.00 eGFR If NonAfricn Am 131 mL/min/1.73 >59 eGFR If Africn Am 151 mL/min/1.73 >5 9 BUN/Creatinine Ratio 11 8-20 Sodium, Serum 140 [...] mg/dL Not Estab. Protein,Total,Urine 10.0 mg/dL Not Estab . Protein/Creat Ratio 170 mg/g creat 0-200 Uric Acid, Serum - 08/30/16 10:00 Uric Acid, Serum 5.0 mg/dL 2.5-7.1 LDH - 08/30/16 10:00 LDH 152 IU/L 119-226 CBC With Differential/Platelet - 6 15:38 WBC 9.9 x10E3/uL 3.4-10.8 RBC 4.09 x10E6/uL 3.77-5.28 Hemoglobin 12.8 g/dL 11.1-15.9 Hematocrit 37.7 % 34.0-46.6 MCV 92 fL 79-97 MCH 31.3 pg 26.6-33.0 MCHC 34.0 g/dL 31.5-35.7 RDW 13.4 % 12.3-15.4 Platelets 185 x10E3/uL 150-379 Neutrophils 71 % Lymphs 21 % Monocytes 6 % Eos 2 % Basos 0 % Neutrophils (Absolute) 7.0 x10E3/uL 1.4- 7.0 Lymphs (Absolute) 2.1 x10E3/uL 0.7-3.1 Monocytes(Absolute) 0.6 x10E3/uL 0.1-0.9 Eos (Absolute) 0.2 x10E3/uL 0.0-0.4 Baso (Absolute) 0.0 x10E3/uL 0.0-0.2 Immature Granulocytes 0 % Immature Grans (Abs) 0.0 x10E3/uL 0.0-0. 1 Gest. Diabetes 1-Hr Screen - 09/02/16 15 :38 Gestational Diabetes Screen 119 mg/dL 65 -139 CBC With Differential/Platelet - 6 10:33 WBC 11.9 x10E3/uL 3.4-10.8 RBC 4.03 x10E6/uL 3.77-5.28 Hemoglobin 12.5 g/dL 11.1-15.9 Hematocrit 37.1 % 34.0-46.6 MCV 92 fL 79-97 MCH 31.0 pg 26.6-33.0 MCHC 33.7 g/dL 31.5-35.7 RDW 13.4 % 12.3-15.4 Platelets 177 x10E3/uL 150-379 Neutrophils 75 % Lymphs 17 % Monocytes 6 % Eos 2 % Basos 0 % Neutrophils (Absolute) 8.9 x10E3/uL 1.4- 7.0 Lymphs (Absolute) 2.0 x10E3/uL 0.7-3.1 Monocytes(Absolute) 0.8 x10E3/uL 0.1-0.9 Eos (Absolute) 0.2 x10E3/uL 0.0-0.4 Baso (Absolute) 0.0 x10E3/uL 0.0-0.2 Immature Granulocytes 0 % Immature Grans (Abs) 0.0 x10E3/uL 0.0-0. 1 Comp. Metabolic Panel (14) - 09/07/16 10 :33 Glucose, Serum 83 mg/dL 65-99 BUN 4 mg/dL 6-20 Creatinine, Serum 0.60 mg/dL 0.57-1.00 eGFR If NonAfricn Am 126 mL/min/1.73 >59 eGFR If Africn Am 145 mL/min/1.73 >5 9 BUN/Creatinine Ratio 7 8-20 Sodium, Serum 142 [...] mg/dL Not Estab. Protein,Total,Urine 23.6 mg/dL Not Estab . Protein/Creat Ratio 206 mg/g creat 0-200 Uric Acid, Serum - 09/07/16 10:33 Uric Acid, Serum 5.2 mg/dL 2.5-7.1 LDH - 09/07/16 10:33 LDH 155 IU/L 119-226 Urine Culture, Routine - 09/07/16 10:33 Urine Culture, Routine Note Urine Culture, Routine - 09/13/16 15:19 Urine Culture, Routine Note Genital Culture, Routine - 09/13/16 15:1 9 Genital Culture, Routine Note Complete blood count (CBC) with automate d white blood cell (WBC) differential - 09/30/16 11:14 Blood leukocytes automated count (number/volume) 14.3 10*3/uL 4.3-11.0 Blood erythrocytes automated count (number/volume) 4.22 10*6/uL 4.35-5.85 Venous blood hemoglobin measurement (mass/volume) 13.4 g/dL 11.5-16.0 Blood hematocrit (volume fraction) 38 % 35-52 Automated erythrocyte mean corpuscular volume 90 [ foz_us] 80-99 Automated erythrocyte mean corpuscular h emoglobin (mass per erythrocyte) 32 pg 25-34 Automated erythrocyte mean corpuscular h emoglobin concentration measurement (mass/volume) 35 g/dL 32-36 Automated erythrocyte distribution width ratio 12. 9 % 10.0- 14.5 Automated blood platelet count (count/volume) 188 10*3/uL [...] 10*3 1.0-4.0 Blood monocytes automated count (number/volume) 1. 0 10*3 0.0-1.0 Automated eosinophil count 0.2 10*3/uL 0 .0-0.3 Automated blood basophil count (count/volume) 0.0 10*3/uL 0.0-0.1 Blood manual differential performed dete ction - 09/30/16 11:14 Blood monocytes/100 leukocytes 3 % NRG Manual blood segmented neutrophils/100 leukocytes 71 % NRG Manual blood lymphocytes/100 leukocytes 23 % NRG Manual eosinophils/100 leukocytes in nose 2 % NRG Manual blood basophils/100 leukocytes 1 % NRG Blood erythrocyte morphology finding identification NORMAL NRG Serum or plasma choriogonadotropin measu rement (units/volume) - 09/30/16 11:14 Serum or plasma choriogonadotropin measurement (units/ volume) 39418 m[iU]/mL <5 Complete urinalysis with reflex to cultu re - 09/30/16 12:13 Urine color determination MARCO ANTONIO NRG Urine clarity determination CLEAR NR G Urine pH measurement by test strip 7 5-9 Specific gravity of urine by test strip 1.015 1.016-1.022 Urine protein assay by test strip, semi-quantitative 1+ NEGATIVE Urine glucose detection by automated test strip NE GATIVE NEGATIVE Erythrocytes detection in urine sediment by light micr oscopy NEGATIVE NEGATIVE Urine ketones detection by automated test strip 2+ NEGATIVE Urine nitrite detection by test strip NEGATIVE NEGATIVE Urine total bilirubin detection by test strip NEGA TIVE NEGATIVE Urine urobilinogen measurement by automated test strip (mass/volume) 1 mg/dL NORMAL Urine leukocyte esterase detection by dipstick 3+ NEGATIVE Automated urine sediment erythrocyte cou nt by microscopy (number/high power field) NONE NRG Automated urine sediment leukocyte count by microscopy (number/high power field) [HPF] NRG Bacteria detection in urine sediment by light microsco py MODERATE NRG Squamous epithelial cells detection in u rine sediment by light microscopy >50 NRG Crystals detection in urine sediment by light microsco py NONE NRG Casts detection in urine sediment by light microscopy NONE NRG Mucus detection in urine sediment by light microscopy NEGATIVE NRG Complete urinalysis with reflex to culture YES NRG Bacterial urine culture - 09/30/16 12:13 URINE CULTURE RESULTS <10,000/ML NRG CBC With Differential/Platelet - 6 13:59 WBC 11.3 x10E3/uL 3.4-10.8 RBC 4.24 x10E6/uL 3.77-5.28 Hemoglobin 13.2 g/dL 11.1-15.9 Hematocrit 39.5 % 34.0-46.6 MCV 93 fL 79-97 MCH 31.1 pg 26.6-33.0 MCHC 33.4 g/dL 31.5-35.7 RDW 13.1 % 12.3-15.4 Platelets 215 x10E3/uL 150-379 Neutrophils 68 % Lymphs 23 % Monocytes 7 % Eos 2 % Basos 0 % Neutrophils (Absolute) 7.6 x10E3/uL 1.4- 7.0 Lymphs (Absolute) 2.6 x10E3/uL 0.7-3.1 Monocytes(Absolute) 0.8 x10E3/uL 0.1-0.9 Eos (Absolute) 0.3 x10E3/uL 0.0-0.4 Baso (Absolute) 0.0 x10E3/uL 0.0-0.2 Immature Granulocytes 0 % Immature Grans (Abs) 0.0 x10E3/uL 0.0-0. 1 Comp. Metabolic Panel (14) - 10/05/16 13 :59 Glucose, Serum 85 mg/dL 65-99 BUN 7 mg/dL 6-20 Creatinine, Serum 0.58 mg/dL 0.57-1.00 eGFR If NonAfricn Am 128 mL/min/1.73 >59 eGFR If Africn Am 147 mL/min/1.73 >5 9 BUN/Creatinine Ratio 12 8-20 Sodium, Serum 140 [...] mg/dL Not Estab. Protein,Total,Urine 33.8 mg/dL Not Estab . Protein/Creat Ratio 198 mg/g creat 0-200 Uric Acid, Serum - 10/05/16 13:59 Uric Acid, Serum 5.0 mg/dL 2.5-7.1 LDH - 10/05/16 13:59 LDH 160 IU/L 119-226 Prot+CreatU (Random) - 10/18/16 16:15 Creatinine, Urine 183.4 mg/dL Not Estab. Protein,Total,Urine 32.9 mg/dL Not Estab . Protein/Creat Ratio 179 mg/g creat 0-200 CBC With Differential/Platelet - 6 16:15 WBC 12.3 x10E3/uL 3.4-10.8 RBC 4.16 x10E6/uL 3.77-5.28 Hemoglobin 13.0 g/dL 11.1-15.9 Hematocrit 39.0 % 34.0-46.6 MCV 94 fL 79-97 MCH 31.3 pg 26.6-33.0 MCHC 33.3 g/dL 31.5-35.7 RDW 13.3 % 12.3-15.4 Platelets 199 x10E3/uL 150-379 Neutrophils 66 % Lymphs 24 % Monocytes 8 % Eos 2 % Basos 0 % Neutrophils (Absolute) 8.1 x10E3/uL 1.4- 7.0 Lymphs (Absolute) 2.9 x10E3/uL 0.7-3.1 Monocytes(Absolute) 1.0 x10E3/uL 0.1-0.9 Eos (Absolute) 0.2 x10E3/uL 0.0-0.4 Baso (Absolute) 0.0 x10E3/uL 0.0-0.2 Immature Granulocytes 0 % Immature Grans (Abs) 0.0 x10E3/uL 0.0-0. 1 Comp. Metabolic Panel (14) - 10/18/16 16 :15 Glucose, Serum 97 mg/dL 65-99 BUN 8 mg/dL 6-20 Creatinine, Serum 0.58 mg/dL 0.57-1.00 eGFR If NonAfricn Am 128 mL/min/1.73 >59 eGFR If Africn Am 147 mL/min/1.73 >5 9 BUN/Creatinine Ratio 14 8-20 Sodium, Serum 141 [...] 159 IU/L 119-226 CBC With Differential/Platelet - 6 15:27 WBC 12.8 x10E3/uL 3.4-10.8 RBC 4.57 x10E6/uL 3.77-5.28 Hemoglobin 14.2 g/dL 11.1-15.9 Hematocrit 42.5 % 34.0-46.6 MCV 93 fL 79-97 MCH 31.1 pg 26.6-33.0 MCHC 33.4 g/dL 31.5-35.7 RDW 12.9 % 12.3-15.4 Platelets 215 x10E3/uL 150-379 Neutrophils 69 % Lymphs 22 % Monocytes 7 % Eos 2 % Basos 0 % Neutrophils (Absolute) 8.8 x10E3/uL 1.4- 7.0 Lymphs (Absolute) 2.9 x10E3/uL 0.7-3.1 Monocytes(Absolute) 0.9 x10E3/uL 0.1-0.9 Eos (Absolute) 0.2 x10E3/uL 0.0-0.4 Baso (Absolute) 0.0 x10E3/uL 0.0-0.2 Immature Granulocytes 0 % Immature Grans (Abs) 0.0 x10E3/uL 0.0-0. 1 Comp. Metabolic Panel (14) - 10/26/16 15 :27 Glucose, Serum 117 mg/dL 65-99 BUN 8 mg/dL 6-20 Creatinine, Serum 0.55 mg/dL 0.57-1.00 eGFR If NonAfricn Am 130 mL/min/1.73 >59 eGFR If Africn Am 150 mL/min/1.73 >5 9 BUN/Creatinine Ratio 15 8-20 Sodium, Serum 139 [...] mg/dL Not Estab. Protein,Total,Urine 27.8 mg/dL Not Estab . Protein/Creat Ratio 223 mg/g creat 0-200 Uric Acid, Serum - 10/26/16 15:27 Uric Acid, Serum 5.8 mg/dL 2.5-7.1 LDH - 10/26/16 15:27 LDH 184 IU/L 119-226 Complete urinalysis with reflex to cultu re - 10/30/16 21:30 Urine color determination YELLOW NRG Urine clarity determination SLIGHTLY CLOUDY NRG Urine pH measurement by test strip 6 5-9 Specific gravity of urine by test strip 1.025 1.016-1.022 Urine protein assay by test strip, semi-quantitative 2+ NEGATIVE Urine glucose detection by automated test strip NE GATIVE NEGATIVE Erythrocytes detection in urine sediment by light micr oscopy 1+ NEGATIVE Urine ketones detection by automated test strip 1+ NEGATIVE Urine nitrite detection by test strip NEGATIVE NEGATIVE Urine total bilirubin detection by test strip NEGA TIVE NEGATIVE Urine urobilinogen measurement by automated test strip (mass/volume) 1 mg/dL NORMAL Urine leukocyte esterase detection by dipstick 3+ NEGATIVE Automated urine sediment erythrocyte cou nt by microscopy (number/high power field) [HPF] NRG Automated urine sediment leukocyte count by microscopy (number/high power field) > [HPF] NRG Bacteria detection in urine sediment by light microsco py MODERATE NRG Squamous epithelial cells detection in u rine sediment by light microscopy 5-10 NRG Crystals detection in urine sediment by light microsco py NONE NRG Casts detection in urine sediment by light microscopy NONE NRG Mucus detection in urine sediment by light microscopy NEGATIVE NRG Complete urinalysis with reflex to culture YES NRG Urine Trichomonas species detection by light microscop y FEW NRG Bacterial urine culture - 10/30/16 21:30 URINE CULTURE RESULTS <10,000/ML NRG Strep Gp B Culture - 11/02/16 15:11 Strep Gp B Culture Negative Negative CBC With Differential/Platelet - 6 15:11 WBC 13.2 x10E3/uL 3.4-10.8 RBC 4.47 x10E6/uL 3.77-5.28 Hemoglobin 13.9 g/dL 11.1-15.9 Hematocrit 41.1 % 34.0-46.6 MCV 92 fL 79-97 MCH 31.1 pg 26.6-33.0 MCHC 33.8 g/dL 31.5-35.7 RDW 12.8 % 12.3-15.4 Platelets 214 x10E3/uL 150-379 Neutrophils 67 % Lymphs 24 % Monocytes 8 % Eos 1 % Basos 0 % Neutrophils (Absolute) 8.7 x10E3/uL 1.4- 7.0 Lymphs (Absolute) 3.1 x10E3/uL 0.7-3.1 Monocytes(Absolute) 1.1 x10E3/uL 0.1-0.9 Eos (Absolute) 0.2 x10E3/uL 0.0-0.4 Baso (Absolute) 0.0 x10E3/uL 0.0-0.2 Immature Granulocytes 0 % Immature Grans (Abs) 0.0 x10E3/uL 0.0-0. 1 Comp. Metabolic Panel (14) - 11/02/16 15 :11 Glucose, Serum 85 mg/dL 65-99 BUN 10 mg/dL 6-20 Creatinine, Serum 0.56 mg/dL 0.57-1.00 eGFR If NonAfricn Am 129 mL/min/1.73 >59 eGFR If Africn Am 149 mL/min/1.73 >5 9 BUN/Creatinine Ratio 18 8-20 Sodium, Serum 140 [...] mg/dL Not Estab. Protein,Total,Urine 32.7 mg/dL Not Estab . Protein/Creat Ratio 147 mg/g creat 0-200 Uric Acid, Serum - 11/02/16 15:11 Uric Acid, Serum 6.4 mg/dL 2.5-7.1 LDH - 11/02/16 15:11 LDH 184 IU/L 119-226 Streptococcus pyogenes antigen detection - 11/08/16 08:52 Streptococcus pyogenes antigen detection NEGATIVE NEGATIVE Bacterial throat culture - 11/08/16 08:5 2 Bacterial throat culture NBS NR Complete blood count (CBC) with automate d white blood cell (WBC) differential - 11/08/16 09:00 Blood leukocytes automated count (number/volume) 11.3 10*3/uL 4.3-11.0 Blood erythrocytes automated count (number/volume) 4.21 10*6/uL 4.35-5.85 Venous blood hemoglobin measurement (mass/volume) 13.1 g/dL 11.5-16.0 Blood hematocrit (volume fraction) 38 % 35-52 Automated erythrocyte mean corpuscular volume 91 [ foz_us] 80-99 Automated erythrocyte mean corpuscular h emoglobin (mass per erythrocyte) 31 pg 25-34 Automated erythrocyte mean corpuscular h emoglobin concentration measurement (mass/volume) 34 g/dL 32-36 Automated erythrocyte distribution width ratio 12. 6 % 10.0- 14.5 Automated blood platelet count (count/volume) 147 10*3/uL [...] 10*3 1.0-4.0 Blood monocytes automated count (number/volume) 1. 0 10*3 0.0-1.0 Automated eosinophil count 0.2 10*3/uL 0 .0-0.3 Automated blood basophil count (count/volume) 0.0 10*3/uL 0.0-0.1 Serum heterophile antibody titer - 11/08 09:00 Serum heterophile antibody titer NEGATIVE NEGATIVE CBC With Differential/Platelet - 6 15:53 WBC 15.4 x10E3/uL 3.4-10.8 RBC 4.19 x10E6/uL 3.77-5.28 Hemoglobin 12.7 g/dL 11.1-15.9 Hematocrit 38.0 % 34.0-46.6 MCV 91 fL 79-97 MCH 30.3 pg 26.6-33.0 MCHC 33.4 g/dL 31.5-35.7 RDW 12.3 % 12.3-15.4 Platelets 178 x10E3/uL 150-379 Neutrophils 61 % Lymphs 31 % Monocytes 7 % Eos 1 % Basos 0 % Neutrophils (Absolute) 9.3 x10E3/uL 1.4- 7.0 Lymphs (Absolute) 4.7 x10E3/uL 0.7-3.1 Monocytes(Absolute) 1.1 x10E3/uL 0.1-0.9 Eos (Absolute) 0.1 x10E3/uL 0.0-0.4 Baso (Absolute) 0.0 x10E3/uL 0.0-0.2 Immature Granulocytes 0 % Immature Grans (Abs) 0.0 x10E3/uL 0.0-0. 1 Comp. Metabolic Panel (14) - 11/09/16 15 :53 Glucose, Serum 98 mg/dL 65-99 BUN 9 mg/dL 6-20 Creatinine, Serum 0.60 mg/dL 0.57-1.00 eGFR If NonAfricn Am 126 mL/min/1.73 >59 eGFR If Africn Am 145 mL/min/1.73 >5 9 BUN/Creatinine Ratio 15 8-20 Sodium, Serum 142 [...] mg/dL Not Estab. Protein,Total,Urine 47.9 mg/dL Not Estab . Protein/Creat Ratio 219 mg/g creat 0-200 Uric Acid, Serum - 11/09/16 15:53 Uric Acid, Serum 5.8 mg/dL 2.5-7.1 LDH - 11/09/16 15:53 LDH 170 IU/L 119-226 Complete urinalysis with reflex to cultu re - 11/12/16 01:20 Urine color determination YELLOW NRG Urine clarity determination SLIGHTLY CLOUDY NRG Urine pH measurement by test strip 6.5 5-9 Specific gravity of urine by test strip 1.020 1.016-1.022 Urine protein assay by test strip, semi-quantitative 2+ NEGATIVE Urine glucose detection by automated test strip NE GATIVE NEGATIVE Erythrocytes detection in urine sediment by light micr oscopy NEGATIVE NEGATIVE Urine ketones detection by automated test strip 1+ NEGATIVE Urine nitrite detection by test strip NEGATIVE NEGATIVE Urine total bilirubin detection by test strip NEGA TIVE NEGATIVE Urine urobilinogen measurement by automated test strip (mass/volume) 4 mg/dL NORMAL Urine leukocyte esterase detection by dipstick 2+ NEGATIVE Automated urine sediment erythrocyte cou nt by microscopy (number/high power field) NONE NRG Automated urine sediment leukocyte count by microscopy (number/high power field) [HPF] NRG Bacteria detection in urine sediment by light microsco py FEW NRG Squamous epithelial cells detection in u rine sediment by light microscopy 10-25 NRG Crystals detection in urine sediment by light microsco py NONE NRG Casts detection in urine sediment by light microscopy NONE NRG Mucus detection in urine sediment by light microscopy LARGE NRG Complete urinalysis with reflex to culture NO NRG Urine protein/creatinine mass ratio - 12 /17/16 01:20 Urine protein measurement (mass/volume) 66 mg/dL 6-12 Urine creatinine measurement (mass/volume) 328 mg/ dL 30-125 Urine protein/creatinine mass ratio 0.20 [facility] Complete blood count (CBC) with automate d white blood cell (WBC) differential - 11/12/16 02:20 Blood leukocytes automated count (number/volume) 13.0 10*3/uL 4.3-11.0 Blood erythrocytes automated count (number/volume) 4.13 10*6/uL 4.35-5.85 Venous blood hemoglobin measurement (mass/volume) 12.8 g/dL 11.5-16.0 Blood hematocrit (volume fraction) 37 % 35-52 Automated erythrocyte mean corpuscular volume 90 [ foz_us] 80-99 Automated erythrocyte mean corpuscular h emoglobin (mass per erythrocyte) 31 pg 25-34 Automated erythrocyte mean corpuscular h emoglobin concentration measurement (mass/volume) 34 g/dL 32-36 Automated erythrocyte distribution width ratio 12. 6 % 10.0- 14.5 Automated blood platelet count (count/volume) 164 10*3/uL [...] 10*3 1.0-4.0 Blood monocytes automated count (number/volume) 1. 1 10*3 0.0-1.0 Automated eosinophil count 0.2 10*3/uL 0 .0-0.3 Automated blood basophil count (count/volume) 0.0 10*3/uL 0.0-0.1 Comprehensive metabolic panel - 11/12/16 02:20 Serum or plasma sodium measurement (moles/volume) 138 mmol/L 135-145 Serum or plasma potassium measurement (moles/volume) 4.0 mmol/L 3.6-5.0 Serum or plasma chloride measurement (moles/volume) 109 mmol/L 98-107 Carbon dioxide 21 mmol/L 21-32 Serum or plasma anion gap determination (moles/volume) 8 mmol/L 5-14 Serum or plasma urea nitrogen measurement (mass/volume ) 10 mg/dL 7-18 Serum or plasma creatinine measurement (mass/volume) 0.62 mg/dL 0.60-1.30 Serum or plasma urea nitrogen/creatinine mass ratio 16 NRG Serum or plasma creatinine measurement w ith calculation of estimated glomerular filtration rate > NRG Serum or plasma glucose measurement (mass/volume) 82 mg/dL 70-105 Serum or plasma calcium measurement (mass/volume) 8.9 mg/dL 8.5-10.1 Serum or plasma total bilirubin measurement (mass/volu me) 0.3 mg/dL 0.1-1.0 Serum or plasma alkaline phosphatase rick surement (enzymatic activity/volume) 245 U/L 40-136 Serum or plasma aspartate aminotransfera se measurement (enzymatic activity/volume) 17 U/L 5-34 Serum or plasma alanine aminotransferase measurement (enzymatic activity/volume) 16 U/L 0-55 Serum or plasma protein measurement (mass/volume) 5.9 g/dL 6.4-8.2 Serum or plasma albumin measurement (mass/volume) 3.0 g/dL 3.2-4.5 Serum or plasma uric acid measurement (m ass/volume) - 11/12/16 02:20 Serum or plasma uric acid measurement (mass/volume) 6.0 mg/dL 2.6-7.2 Lactate dehydrogenase 1 [enzymatic activ ity/volume] in serum or plasma - 11/12/16 02:20 Lactate dehydrogenase 1 [enzymatic activ ity/volume] in serum or plasma 231 U/L 125-220 [id number] - 11/12/16 02:20 [id number] SPECIMEN AVAILABLE NRG Urine protein/creatinine mass ratio - 12:50 Urine protein measurement (mass/volume) < mg/dL 6-12 Urine creatinine measurement (mass/volume) 27 mg/d L 30-125 Urine protein/creatinine mass ratio TNP NRG Complete urinalysis with reflex to cultu re - 11/14/16 12:50 Urine color determination YELLOW NRG Urine clarity determination CLEAR NR G Urine pH measurement by test strip 7 5-9 Specific gravity of urine by test strip 1.005 1.016-1.022 Urine protein assay by test strip, semi-quantitative NEGATIVE NEGATIVE Urine glucose detection by automated test strip NE GATIVE NEGATIVE Erythrocytes detection in urine sediment by light micr oscopy NEGATIVE NEGATIVE Urine ketones detection by automated test strip NE GATIVE NEGATIVE Urine nitrite detection by test strip NEGATIVE NEGATIVE Urine total bilirubin detection by test strip NEGA TIVE NEGATIVE Urine urobilinogen measurement by automated test strip (mass/volume) NORMAL NORMAL Urine leukocyte esterase detection by dipstick 2+ NEGATIVE Automated urine sediment erythrocyte cou nt by microscopy (number/high power field) NONE NRG Automated urine sediment leukocyte count by microscopy (number/high power field) [HPF] NRG Bacteria detection in urine sediment by light microsco py TRACE NRG Squamous epithelial cells detection in u rine sediment by light microscopy 2-5 NRG Crystals detection in urine sediment by light microsco py NONE NRG Casts detection in urine sediment by light microscopy NONE NRG Mucus detection in urine sediment by light microscopy NEGATIVE NRG Complete urinalysis with reflex to culture NO NRG Complete blood count (CBC) with automate d white blood cell (WBC) differential - 11/14/16 13:06 Blood leukocytes automated count (number/volume) 11.6 10*3/uL 4.3-11.0 Blood erythrocytes automated count (number/volume) 4.23 10*6/uL 4.35-5.85 Venous blood hemoglobin measurement (mass/volume) 13.1 g/dL 11.5-16.0 Blood hematocrit (volume fraction) 38 % 35-52 Automated erythrocyte mean corpuscular volume 90 [ foz_us] 80-99 Automated erythrocyte mean corpuscular h emoglobin (mass per erythrocyte) 31 pg 25-34 Automated erythrocyte mean corpuscular h emoglobin concentration measurement (mass/volume) 34 g/dL 32-36 Automated erythrocyte distribution width ratio 12. 4 % 10.0- 14.5 Automated blood platelet count (count/volume) 145 10*3/uL [...] 10*3 1.0-4.0 Blood monocytes automated count (number/volume) 1. 0 10*3 0.0-1.0 Automated eosinophil count 0.1 10*3/uL 0 .0-0.3 Automated blood basophil count (count/volume) 0.0 10*3/uL 0.0-0.1 Comprehensive metabolic panel - 11/14/16 13:06 Serum or plasma sodium measurement (moles/volume) 137 mmol/L 135-145 Serum or plasma potassium measurement (moles/volume) 4.0 mmol/L 3.6-5.0 Serum or plasma chloride measurement (moles/volume) 109 mmol/L 98-107 Carbon dioxide 20 mmol/L 21-32 Serum or plasma anion gap determination (moles/volume) 8 mmol/L 5-14 Serum or plasma urea nitrogen measurement (mass/volume ) 5 mg/dL 7-18 Serum or plasma creatinine measurement (mass/volume) 0.63 mg/dL 0.60-1.30 Serum or plasma urea nitrogen/creatinine mass ratio 8 NRG Serum or plasma creatinine measurement w ith calculation of estimated glomerular filtration rate > NRG Serum or plasma glucose measurement (mass/volume) 71 mg/dL 70-105 Serum or plasma calcium measurement (mass/volume) 9.0 mg/dL 8.5-10.1 Serum or plasma total bilirubin measurement (mass/volu me) 0.5 mg/dL 0.1-1.0 Serum or plasma alkaline phosphatase rick surement (enzymatic activity/volume) 251 U/L 40-136 Serum or plasma aspartate aminotransfera se measurement (enzymatic activity/volume) 17 U/L 5-34 Serum or plasma alanine aminotransferase measurement (enzymatic activity/volume) 13 U/L 0-55 Serum or plasma protein measurement (mass/volume) 6.0 g/dL 6.4-8.2 Serum or plasma albumin measurement (mass/volume) 3.1 g/dL 3.2-4.5 Serum or plasma uric acid measurement (m ass/volume) - 11/14/16 13:06 Serum or plasma uric acid measurement (mass/volume) 6.4 mg/dL 2.6-7.2 Lactate dehydrogenase 1 [enzymatic activ ity/volume] in serum or plasma - 11/14/16 13:06 Lactate dehydrogenase 1 [enzymatic activ ity/volume] in serum or plasma 251 U/L 125-220 Blood type T Indirect antibody screen pa [facility]ward - 11/14/16 13:06 ABO+Rh group BP NRG Transfusion band number [id number] NRG Blood group antibody screen NEGATIVE NR G Automated blood complete blood count (he mogram) panel - 11/15/16 08:47 Blood leukocytes automated count (number/volume) 12.2 10*3/uL 4.3-11.0 Blood erythrocytes automated count (number/volume) 4.21 10*6/uL 4.35-5.85 Venous blood hemoglobin measurement (mass/volume) 13.0 g/dL 11.5-16.0 Blood hematocrit (volume fraction) 38 % 35-52 Automated erythrocyte mean corpuscular volume 90 [ foz_us] 80-99 Automated erythrocyte mean corpuscular h emoglobin (mass per erythrocyte) 31 pg 25-34 Automated erythrocyte mean corpuscular h emoglobin concentration measurement (mass/volume) 34 g/dL 32-36 Automated erythrocyte distribution width ratio 12. 5 % 10.0- 14.5 Automated blood platelet count (count/volume) 143 10*3/uL [...] 5-14 Serum or plasma urea nitrogen measurement (mass/volume ) 6 mg/dL 7-18 Serum or plasma creatinine measurement (mass/volume) 0.58 mg/dL 0.60-1.30 Serum or plasma urea nitrogen/creatinine mass ratio 10 NRG Serum or plasma creatinine measurement w ith calculation of estimated glomerular filtration rate > NRG Serum or plasma glucose measurement (mass/volume) 93 mg/dL 70-105 Serum or plasma calcium measurement (mass/volume) 8.6 mg/dL 8.5-10.1 Serum or plasma total bilirubin measurement (mass/volu me) 0.6 mg/dL 0.1-1.0 Serum or plasma alkaline phosphatase rick surement (enzymatic activity/volume) 248 U/L 40-136 Serum or plasma aspartate aminotransfera se measurement (enzymatic activity/volume) 18 U/L 5-34 Serum or plasma alanine aminotransferase measurement (enzymatic activity/volume) 14 U/L 0-55 Serum or plasma protein measurement (mass/volume) 5.6 g/dL 6.4-8.2 Serum or plasma albumin measurement (mass/volume) 2.9 g/dL 3.2-4.5 Serum or plasma uric acid measurement (m ass/volume) - 11/15/16 08:47 Serum or plasma uric acid measurement (mass/volume) 6.2 mg/dL 2.6-7.2 Lactate dehydrogenase 1 [enzymatic activ ity/volume] in serum or plasma - 11/15/16 08:47 Lactate dehydrogenase 1 [enzymatic activ ity/volume] in serum or plasma 216 U/L 125-220 Complete blood count (CBC) with automate d white blood cell (WBC) differential - 11/16/16 05:20 Blood leukocytes automated count (number/volume) 12.1 10*3/uL 4.3-11.0 Blood erythrocytes automated count (number/volume) 3.76 10*6/uL 4.35-5.85 Venous blood hemoglobin measurement (mass/volume) 11.7 g/dL 11.5-16.0 Blood hematocrit (volume fraction) 34 % 35-52 Automated erythrocyte mean corpuscular volume 90 [ foz_us] 80-99 Automated erythrocyte mean corpuscular h emoglobin (mass per erythrocyte) 31 pg 25-34 Automated erythrocyte mean corpuscular h emoglobin concentration measurement (mass/volume) 35 g/dL 32-36 Automated erythrocyte distribution width ratio 12. 4 % 10.0- 14.5 Automated blood platelet count (count/volume) 129 10*3/uL [...] 10*3 1.0-4.0 Blood monocytes automated count (number/volume) 1. 0 10*3 0.0-1.0 Automated eosinophil count 0.1 10*3/uL 0 .0-0.3 Automated blood basophil count (count/volume) 0.0 10*3/uL 0.0-0.1 Complete blood count (CBC) with automate d white blood cell (WBC) differential - 10/03/18 11:20 Blood leukocytes automated count (number/volume) 10.9 10*3/uL 4.3-11.0 Blood erythrocytes automated count (number/volume) 5.43 10*6/uL 4.35-5.85 Venous blood hemoglobin measurement (mass/volume) 16.8 g/dL 11.5-16.0 Blood hematocrit (volume fraction) 48 % 35-52 Automated erythrocyte mean corpuscular volume 88 [ foz_us] 80-99 Automated erythrocyte mean corpuscular h emoglobin (mass per erythrocyte) 31 pg 25-34 Automated erythrocyte mean corpuscular h emoglobin concentration measurement (mass/volume) 35 g/dL 32-36 Automated erythrocyte distribution width ratio 13. 1 % 10.0- 14.5 Automated blood platelet count (count/volume) 200 10*3/uL [...] 10*3 1.0-4.0 Blood monocytes automated count (number/volume) 0. 7 10*3 0.0-1.0 Automated eosinophil count 0.2 10*3/uL 0 .0-0.3 Automated blood basophil count (count/volume) 0.0 10*3/uL 0.0-0.1 Streptococcus pyogenes antigen detection - 10/03/18 11:20 Streptococcus pyogenes antigen detection NEGATIVE NEGATIVE Influenza virus A and B antigen detectio n - 10/03/18 11:20 FLU RESULT NEGATIVE FOR INFLUENZA A AND B ANTIGENS BY IA [facility] Comprehensive metabolic panel - 10/03/18 11:20 Serum or plasma sodium measurement (moles/volume) 139 mmol/L 135-145 Serum or plasma potassium measurement (moles/volume) 4.2 mmol/L 3.6-5.0 Serum or plasma chloride measurement (moles/volume) 107 mmol/L 98-107 Carbon dioxide 24 mmol/L 21-32 Serum or plasma anion gap determination (moles/volume) 8 mmol/L 5-14 Serum or plasma urea nitrogen measurement (mass/volume ) 9 mg/dL 7-18 Serum or plasma creatinine measurement (mass/volume) 0.75 mg/dL 0.60-1.30 Serum or plasma urea nitrogen/creatinine mass ratio 12 NRG Serum or plasma creatinine measurement w ith calculation of estimated glomerular filtration rate > NRG Serum or plasma glucose measurement (mass/volume) 93 mg/dL 70-105 Serum or plasma calcium measurement (mass/volume) 9.8 mg/dL 8.5-10.1 Serum or plasma total bilirubin measurement (mass/volu me) 1.1 mg/dL 0.1-1.0 Serum or plasma alkaline phosphatase rick surement (enzymatic activity/volume) 79 U/L 40-136 Serum or plasma aspartate aminotransfera se measurement (enzymatic activity/volume) 27 U/L 5-34 Serum or plasma alanine aminotransferase measurement (enzymatic activity/volume) 41 U/L 0-55 Serum or plasma protein measurement (mass/volume) 7.6 g/dL 6.4-8.2 Serum or plasma albumin measurement (mass/volume) 4.5 g/dL 3.2-4.5 CALCIUM CORRECTED 9.4 mg/dL 8.5-10.1 Bacterial throat culture - 10/03/18 11:2 0 Bacterial throat culture [facility] Urine beta human chorionic gonadotropin (hCG) measurement - 10/03/18 12:11 Urine beta human chorionic gonadotropin (hCG) measurem ent NEGATIVE NEGATIVE Complete urinalysis with reflex to cultu re - 10/03/18 12:11 Urine color determination YELLOW NRG Urine clarity determination CLEAR NR G Urine pH measurement by test strip 5 5-9 Specific gravity of urine by test strip 1.020 1.016-1.022 Urine protein assay by test strip, semi-quantitative 1+ NEGATIVE Urine glucose detection by automated test strip NE GATIVE NEGATIVE Erythrocytes detection in urine sediment by light micr oscopy NEGATIVE NEGATIVE Urine ketones detection by automated test strip NE GATIVE NEGATIVE Urine nitrite detection by test strip NEGATIVE NEGATIVE Urine total bilirubin detection by test strip NEGA TIVE NEGATIVE Urine urobilinogen measurement by automated test strip (mass/volume) 1 mg/dL NORMAL Urine leukocyte esterase detection by dipstick 2+ NEGATIVE Automated urine sediment erythrocyte cou nt by microscopy (number/high power field) NONE NRG Automated urine sediment leukocyte count by microscopy (number/high power field) [HPF] NRG Bacteria detection in urine sediment by light microsco py MODERATE NRG Squamous epithelial cells detection in u rine sediment by light microscopy 10-25 NRG Crystals detection in urine sediment by light microsco py NONE NRG Casts detection in urine sediment by light microscopy NONE NRG Mucus detection in urine sediment by light microscopy MODERATE NRG Complete urinalysis with reflex to culture YES NRG Bacterial urine culture - 10/03/18 12:11 Bacterial urine culture SEE REPORT NRG COLONY COUNT . NRG Streptococcus pyogenes antigen detection - 10/25/19 05:47 Streptococcus pyogenes antigen detection NEGATIVE NEGATIVE Influenza virus A and B antigen detectio n - 10/25/19 05:47 FLU RESULT NEGATIVE FOR INFLUENZA A AND B ANTIGENS BY [place] NRG Bacterial throat culture - 10/25/19 05:4 7 Bacterial throat culture NBS NRG COVID-19 ([facility]) - 02/19/20 19:00 PATIENT SYMPTOMATIC? NOT GIVEN NRG SOURCE: NOT GIVEN NRG OVERALL RESULT: NOT DETECTED NOT DETE CTED SARS-CoV-2 RNA: NEGATIVE NEGATIVE TREJO-SARS RNA: NEGATIVE NEGATIVE Encounters ACCT No. Visit Date/Time Discharge Status Pt. Type Provider Facility Loc./Unit Complaint [id number] 08/31/2016 13:06:00 Document Registration [id number] 10/19/2016 13:06:00 Document Registration [id number] 09/09/2016 05:06:00 Document Registration [id number] 10/27/2016 10:06:00 Document Registration [id number] 11/10/2016 13:05:00 Document Registration [id number] 11/06/2016 07:05:00 Document Registration [id number] 10/20/2016 08:06:00 Document Registration [id number] 12/29/2014 09:30:00 12/29/2014 23:59: 59 CLS Outpatient EBONY CARRIZALES APRN [id number] 08/28/2013 09:16:00 08/28/2013 23:59: 59 CLS Outpatient EBONY CARRIZALES APRN [id number] 07/18/2013 11:13:00 Document Registration [id number] 09/15/2016 18:05:00 Document Registration [id number] 02/14/2020 09:25:00 02/14/2020 23:59: 59 CLS Outpatient MAURA CHATTERJEE MD [facility] [id number] 02/19/2020 18:20:00 Document Registration [id number] 09/18/2016 13:05:00 Document Registration [id number] 11/03/2016 13:06:00 Document Registration [id number] 09/03/2016 08:07:00 Document Registration [id number] 10/25/2019 05:39:00 06:31:00 DIS Outpatient JUSTYNA NUÑEZ MD [facility] ER CONGESTION,RUNNY NOSE,P OSS FEVER,SORE THROAT [id number] 05/08/2019 08:54:00 23:59:59 CLS Outpatient RAJAN VALLES MD [facility] ER L EAR PAIN [id number] 12/10/2018 08:25:00 019 23:59:59 CLS Emergency JUSTYNA NUÑEZ MD [facility] ER N/V/D;COUGH [id number] 10/03/2018 10:03:00 018 13:01:00 DIS Outpatient CLAY RUBIO [facility] ER VOMITING;COUGH [id number] 09/25/2017 21:08:00 017 22:01:00 DIS Outpatient ADELA GONZALEZ APRN [facility] ER COUGH/SOB/VOMITING [id number] 01/23/2017 10:45:00 017 23:59:59 CLS Preadmit MAURA CHATTERJEE MD [facility] RAD ABNORMAL QUAD SCREN [id number] 11/14/2016 10:45:00 017 00:01:00 DIS Outpatient MAURA CHATTERJEE MD [facility] RAD ABNORMAL QUAD SCREN [id number] 11/14/2016 12:39:00 15:40:00 DIS Inpatient MAURA CHATTERJEE MD [facility] LDRP INDUCTION [id number] 11/12/2016 01:15:00 10:20:00 DIS Outpatient ARLETH LEVY MD [facility] WSo PAIN,HTN,VOMITING [id number] 11/08/2016 08:20:00 09:49:00 DIS Emergency RAJAN VALLES MD [facility] ER COUGH/SORE THRO AT VOMITING [id number] 10/30/2016 21:25:00 23:45:00 DIS Outpatient NELSY SWEENEY DO [facility] WSo PAIN [id number] 10/10/2016 11:16:00 23:59:59 CLS Outpatient MAURA CHATTERJEE MD [facility] RAD ABNORMAL QUAD SCREEN [id number] 09/30/2016 10:36:00 13:30:00 DIS Emergency ADELA GONZALEZ [employer]AK[employer] MACHINE [employer]PER[employer] [facility] ER VOMITING DENTAL PAIN 32 WKS PREG [id number] 09/16/2016 12:18:00 23:59:59 CLS Outpatient MAURA CHATTERJEE MD [facility] RAD PLACENTA LOCATION,THIRD TRIMESTER BLEEDING [id number] 09/12/2016 21:20:00 22:47:00 DIS Outpatient NELSY SWEENEY DO [facility] WSo SPOTTING [id number] 09/06/2016 18:04:00 10/11/2 016 22:20:00 DIS Outpatient MAURA CHATTERJEE MD [facility] WSo FALL [id number] 08/05/2016 10:03:00 016 23:59:59 CLS Outpatient MAURA CHATTERJEE MD [facility] RAD EVALUATE ANATOMY NOT SE EN ON PRIOR SONOGRAM [id number] 07/13/2016 10:05:00 016 23:59:59 CLS Outpatient MAURA CHATTERJEE MD [facility] RAD Z34 [id number] 04/22/2016 16:38:00 23:59:59 CLS Outpatient MAURA CHATTERJEE MD [facility] RAD STAT UNABLE TO DOPPLER HEART TONES AT REPORTED 20 [id number] 01/25/2016 20:38:00 016 01:14:00 DIS Emergency BEVERLY SALTER [facility] ER BACK PAIN/ABD PAIN/VOM ITING [id number] 10/30/2015 11:18:00 015 12:48:00 DIS Emergency RALPH MORGAN MD [facility] ER ABD PAIN [id number] 03/30/2013 11:27:00 013 23:59:59 CLS Outpatient [id number] 03/29/2012 19:40:00 Document Registration [id number] 10/06/2016 13:06:00 Document Registration
--- NOTE | 2020-04-20 13:02 | Diagnostic Imaging Report ---
Portable erect AP chest at 12:20. Indication: Cough, fever The heart size is within normal limits and stable when compared to 09/25/2017. The lungs are clear. There is no evidence for failure, pneumonia or for pleural effusion. The mediastinum is not widened. The osseous structures are intact. Impression: There is no evidence for active disease. Dictated by: Dictated on workstation # [id number]
--- NOTE | 2020-04-20 13:16 | ED Respiratory ---
General Chief Complaint: Cough/Cold/Flu Symptoms Stated Complaint: COUGH, FEVER Source: patient History of Present Illness Date Seen by Provider: April 20, 2020 Time Seen by Provider: 11:35 Initial Comments PT ARRIVES VIA POV FROM HOME PT STATES SHE HAS HAD A PRODUCTIVE COUGH FOR 2 WEEKS--SPUTUM YELLOW TO GREEN TO CLEAR, AND SOMETIMES NON-PRODUCTIVE BEGAN HAVING A FEVER LAST NIGHT--WAS 101. NO FEVER TODAY HAS BEEN A LITTLE SHORT OF BREATH OFF AND ON NO CHEST PAIN OR PAIN WITH BREATHING STATES THIS MORNING SHE COUGHED AND THEN THREW UP ONCE. NO ACTUAL NAUSEA. NO DIARRHEA. NO ABDOMINAL PAIN HAS NOT SOUGHT CARE UNTIL TODAY SYMPTOMS NO DIFFERENT TODAY HAS NOT TAKEN ANYTHING FOR SYMPTOMS PT SMOKES 1/2 PPD. LMP 04/16/20. NORMAL. PCP: DR. CHATTERJEE AT [facility] Allergies and Home Medications Allergies Coded Allergies: diphenhydramine (Verified Allergy, Unknown, 10/25/19) Home Medications Albuterol Sulfate 1 Puff Puff, 2 PUFF IH Q4H PRN for COUGH 1 PUFF = 90 MCG Prescribed by: JUSTYNA NUÑEZ on 10/25/19 0602 Benzonatate 100 Mg Capsule, 100 MG PO Q6H PRN for COUGH Prescribed by: JUSTYNA NUÑEZ on 10/25/19 0602 Cefdinir 300 Mg Capsule, 300 MG PO BID Prescribed by: DOMENIC REECE on 04/20/20 1404 Patient Home Medication List Home Medication List Reviewed: Yes Review of Systems Review of Systems Constitutional: see HPI, fever EENTM: no symptoms reported; No ear pain, No nose congestion, No throat pain Respiratory: see HPI, cough, phlegm, short of breath Cardiovascular: no symptoms reported; No chest pain Gastrointestinal: see HPI; No abdominal pain, No loss of appetite, No nausea; vomiting (DUE TO COUGH) Genitourinary: no symptoms reported LMP: April 16, 2020 Musculoskeletal: no symptoms reported Skin: no symptoms reported Psychiatric/Neurological: No Symptoms Reported Hematologic/Lymphatic: No Symptoms Reported Immunological/Allergic: no symptoms reported Past Vaqfuaw-Hpnxhm-Jggvcb Hx Past Med/Social Hx: Reviewed and Corrections made Patient Social History Alcohol Use: Denies Use Recreational Drug Use: No Smoking Status: Current Everyday Smoker (1/2 PPD) Type Used: Cigarettes 2nd Hand Smoke Exposure: Yes Recent Hopitalizations: No Immunizations Up To Date Tetanus Booster (TDap): Unknown PED Vaccines UTD: No Date of Influenza Vaccine: Aug 19, 2016 Seasonal Allergies Seasonal Allergies: Yes Past Medical History Surgeries: No Respiratory: No Cardiac: Yes (NO MEDICATIONS FOR A YEAR. PER PT ON 04/20/20) Hypertension Neurological: No Reproductive Disorders: No Female Reproductive Disorders: Denies Sexually Transmitted Disease: No HIV/AIDS: No Genitourinary: No Gastrointestinal: No Musculoskeletal: No Endocrine: No HEENT: No Cancer: No Psychosocial: Yes Anxiety, Bipolar, Depression Integumentary: No Blood Disorders: No Adverse Reaction/Blood Tranf: No Family Medical History Asthma 19 MOTHER G8 SISTER Maternal grandmother Colon cancer Maternal grandfather Paternal grandmother Diabetes mellitus Maternal grandfather Hypertension Maternal grandfather Maternal grandmother No Pertinent Family Hx Physical Exam Vital Signs - First Documented 04/20/20 10:40 Temp 36.8 Pulse 111 Resp 18 B/P (MAP) 122/86 (98) Pulse Ox 99 O2 Delivery Room Air Capillary Refill : Height: 6'0" Weight: 254lbs. 0.0oz. 115.264881xx; 31.00 BMI Method:Stated General Appearance: WD/WN, no apparent distress, obese, other (HAIR DYED PURPLE. DOES NOT APPEAR ILL OR TO BE IN ANY DISCOMFORT OR DISTRESS WHATSOEVER. NO COUGH NOTED AT ANY TIME. NO DYSPNEA. 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, no motor/sensory deficits, alert, normal mood/affect, oriented x 3 Skin: normal color, warm/dry Focused Exam Lactate Level 04/20/20 13:20: Lactic Acid Level 0.73 Lactic Acid Level Laboratory Tests Test 04/20/20 13:20 Lactic Acid Level 0.73 MMOL/L (0.50-2.00) Progress/Results/Core Measures Suspected Sepsis SIRS Temperature: Pulse: Respiratory Rate: Laboratory Tests 04/20/20 13:20: White Blood Count 11.3H Blood Pressure / Mean: 04/20/20 13:20: Lactic Acid Level 0.73 Laboratory Tests 04/20/20 13:20: Creatinine 0.69, INR Comment 0.9, Platelet Count 201, Total Bilirubin 0.5 Results/Orders Lab Results Laboratory Tests Test 04/20/20 10:38 04/20/20 11:45 04/20/20 13:20 04/20/20 13:25 Range/Units Lab Scanned Report Referred Lab Report [id number] Urine Color ORANGE Urine Clarity SL CLOUDY Urine pH 6.0 5-9 Urine Specific Cheriton >=1.030 1.016-1.022 Urine Protein TRACE H NEGATIVE Urine Glucose (UA) NEGATIVE NEGATIVE Urine Ketones NEGATIVE NEGATIVE Urine Nitrite NEGATIVE NEGATIVE Urine Bilirubin NEGATIVE NEGATIVE Urine Urobilinogen 0.2 < = 1.0 MG/DL Urine Leukocyte Esterase 2+ H NEGATIVE Urine RBC (Auto) 3+ H NEGATIVE Urine RBC 0-2 /HPF Urine WBC 25-50 H /HPF Urine Squamous Epithelial Cells 5-10 /HPF Urine Crystals NONE /LPF Urine Bacteria MODERATE H /HPF Urine Casts NONE /LPF Urine Mucus SMALL H /LPF Urine Culture Indicated CULTURE PENDING White Blood Count 11.3 H 4.3-11.0 10^3/uL Red Blood Count 5.12 4.35-5.85 10^6/uL Hemoglobin 15.9 11.5-16.0 G/DL Hematocrit 46 35-52 % Mean Corpuscular Volume 89 80-99 FL Mean Corpuscular Hemoglobin 31 25-34 PG Mean Corpuscular Hemoglobin Concent 35 32-36 G/DL Red Cell Distribution Width 13.7 10.0-14.5 % Platelet Count 201 130-400 10^3/uL Mean Platelet Volume 10.7 H 7.4-10.4 FL Neutrophils (%) (Auto) 61 42-75 % Lymphocytes (%) (Auto) 32 12-44 % Monocytes (%) (Auto) 6 0-12 % Eosinophils (%) (Auto) 2 0-10 % Basophils (%) (Auto) 0 0-10 % Neutrophils # (Auto) 6.9 1.8-7.8 X 10^3 Lymphocytes # (Auto) 3.6 1.0-4.0 X 10^3 Monocytes # (Auto) 0.7 0.0-1.0 X 10^3 Eosinophils # (Auto) 0.2 0.0-0.3 10^3/uL Basophils # (Auto) 0.0 0.0-0.1 10^3/uL Erythrocyte Sedimentation Rate 4 0-20 MM/HR Prothrombin Time 12.7 12.2-14.7 SEC INR Comment 0.9 0.8-1.4 Activated Partial Thromboplast Time 26 24-35 SEC D-Dimer 0.29 0.00-0.49 UG/ML Sodium Level 139 135-145 MMOL/L Potassium Level 3.9 3.6-5.0 MMOL/L Chloride Level 108 H 98-107 MMOL/L Carbon Dioxide Level 21 21-32 MMOL/L Anion Gap 10 5-14 MMOL/L Blood Urea Nitrogen 11 7-18 MG/DL Creatinine 0.69 0.60-1.30 MG/DL Estimat Glomerular Filtration Rate > 60 BUN/Creatinine Ratio 16 Glucose Level 84 70-105 MG/DL Lactic Acid Level 0.73 0.50-2.00 MMOL/L Calcium Level 9.2 8.5-10.1 MG/DL Corrected Calcium 9.1 8.5-10.1 MG/DL Total Bilirubin 0.5 0.1-1.0 MG/DL Aspartate Amino Transf (AST/SGOT) 21 5-34 U/L Alanine Aminotransferase (ALT/SGPT) 26 0-55 U/L Alkaline Phosphatase 72 40-136 U/L Lactate Dehydrogenase 193 125-220 U/L C-Reactive Protein High Sensitivity 0.50 0.00-0.50 MG/DL Total Protein 7.4 6.4-8.2 GM/DL Albumin 4.1 3.2-4.5 GM/DL Procalcitonin 0.02 <0.10 NG/ML Serum Test, Qualitative NEGATIVE NEGATIVE Coronavirus (COVID-19)(PCR) Negative Negative Group A Streptococcus Screen NEGATIVE NEGATIVE Micro Results Microbiology 04/20/20 Throat Culture - Final, Complete Strep, Beta Hemolytic Group C 04/20/20 Influenza Types A,B Antigen (ISHAAN) - Final, Complete 04/20/20 Blood Culture - Preliminary, Resulted No growth 04/20/20 Blood Culture - Preliminary, Resulted No growth 04/20/20 Urine Culture - Final, Complete 3 or more isolates My Orders Orders - DOMENIC REECE DO Ekg Tracing (04/20/20 13:52) Monitor-Rhythm Ecg Trace Only (04/20/20 13:52) Fibrin Degradation Products (04/20/20 13:54) Procalcitonin (Pct) (04/20/20 13:54) Hs C Reactive Protein (04/20/20 13:54) Erythrocyte Sedimentation Rate (04/20/20 13:54) LDH (04/20/20 13:54) Vital Signs/I&O 04/20/20 04/20/20 10:40 14:41 Temp 36.8 Pulse 111 91 Resp 18 18 B/P (MAP) 122/86 (98) 121/70 Pulse Ox 99 99 O2 Delivery Room Air Room Air Capillary Refill : Progress Note : Progress Note PPE WORN AT ALL TIMES COVID-19 TESTING PERFORMED. NO COUGH OR DYSPNEA AT ANY TIME NO FEVER AT ANY TIME NO SYMPTOMS DURING ER STAY ECG Initial ECG Impression Date: April 20, 2020 Initial ECG Impression Time: 11:48 Initial ECG Rate: 86 Initial ECG Rhythm: Normal Sinus Initial ECG Impression: Normal Diagnostic Imaging Comments CXR--NO ACUTE PROCESS, PER RADIOLOGIST REPORT AT 1304 Reviewed: Reviewed by Me Departure Impression Primary Impression: Upper respiratory infection Additional Impressions: COVID P.U.I. UTI (urinary tract infection) Disposition: 01 HOME, SELF-CARE Condition: Stable Departure-Patient Inst. Referrals: MAURA CHATTERJEE MD (PCP/Family) Primary Care Physician Patient Instructions: Coronavirus Disease 2019 (COVID-19) (DC), Cough, Runny Nose, and the Common Cold (DC), Urinary Tract Infection, Adult (DC) Add. Discharge Instructions: LOTS OF CLEAR LIQUIDS TYLENOL NEEDED FOR PAIN OR FEVER OVER THE COUNTER MUCINEX DM FOR COUGH FOLLOW UP WITH [facility] IN 4-5 DAYS IF NO BETTER, RETURN TO ER IF WORSE All discharge instructions reviewed with patient and/or family. Voiced understanding. Scripts Cefdinir (Cefdinir) 300 Mg Capsule 300 MG PO BID, #20 CAP Prov: DOMENIC REECE DO 04/20/20 DOMENIC REECE DO April 20, 2020 13:16
[2020-04-20 13:40] LABS: BASOPHILS % (AUTO) 0 % (0-10); EOSINOPHILS # (AUTO) 0.2 10^3/uL (0.0-0.3); EOSINOPHILS % (AUTO) 2 % (0-10); HEMATOCRIT 46 % (35-52); HEMOGLOBIN 15.9 G/DL (11.5-16.0); LYMPHOCYTES # (AUTO) 3.6 X 10^3 (1.0-4.0); LYMPHOCYTES % (AUTO) 32 % (12-44); MEAN CORPUSCULAR HEMOGLOBIN 31 PG (25-34); MEAN CORPUSCULAR HGB CONC 35 G/DL (32-36); MEAN CORPUSCULAR VOLUME 89 FL (80-99); MEAN PLATELET VOLUME 10.7 FL (7.4-10.4); MONOCYTES # (AUTO) 0.7 X 10^3 (0.0-1.0); MONOCYTES % (AUTO) 6 % (0-12); NEUTROPHILS # (AUTO) 6.9 X 10^3 (1.8-7.8); NEUTROPHILS % (AUTO) 61 % (42-75); PLATELET COUNT 201 10^3/uL (130-400); RED CELL DISTRIBUTION WIDTH 13.7 % (10.0-14.5); WHITE BLOOD COUNT 11.3 10^3/uL (4.3-11.0)
[2020-04-20 13:42] LABS: BILIRUBIN,URINE NEGATIVE (NEGATIVE); CLARITY,URINE SL CLOUDY; COLOR,URINE ORANGE; GLUCOSE, URINE (UA) NEGATIVE (NEGATIVE); KETONES,URINE NEGATIVE (NEGATIVE); LEUKOCYTE ESTERASE ,URINE 2+ (NEGATIVE); NITRITE,URINE NEGATIVE (NEGATIVE); PROTEIN,URINE TRACE (NEGATIVE)
[2020-04-20 13:50] LABS: BACTERIA,URINE MODERATE /HPF; RBC,URINE 0-2 /HPF; WBC,URINE 25-50 /HPF
[2020-04-20 13:51] LABS: ALBUMIN 4.1 GM/DL (3.2-4.5); CHLORIDE 108 MMOL/L (98-107); POTASSIUM 3.9 MMOL/L (3.6-5.0); SODIUM 139 MMOL/L (135-145)
[2020-04-20 13:52] LABS: CALCIUM 9.2 MG/DL (8.5-10.1)
[2020-04-20 13:53] LABS: GLUCOSE 84 MG/DL (70-105); INR 0.9 (0.8-1.4); PROTHROMBIN TIME PATIENT 12.7 SEC (12.2-14.7); TOTAL PROTEIN 7.4 GM/DL (6.4-8.2)
[2020-04-20 13:54] LABS: CARBON DIOXIDE 21 MMOL/L (21-32)
[2020-04-20 13:55] LABS: BILIRUBIN,TOTAL 0.5 MG/DL (0.1-1.0)
[2020-04-20 13:56] LABS: ALKALINE PHOSPHATASE 72 U/L (40-136)
[2020-04-20 13:57] LABS: CREATININE SERUM 0.69 MG/DL (0.60-1.30); GFR ESTIMATED > 60
[2020-04-20 13:58] LABS: BUN/CREATININE RATIO 16
[2020-04-20 14:00] LABS: ALANINE AMINOTRANSFERASE 26 U/L (0-55)
[2020-04-20] MEDS ORDERED: CEFD300C3 PO (14:04)
[2020-04-20 14:41] VITALS: BP 121/70
== END 2020-04-20 14:41 | disposition home or self-care (01) ==
LOC: EDUNIT# 10:36 → ER 10:38
DX: J06.9 Acute upper respiratory infection, unspecified (principal); N39.0 Urinary tract infection, site not specified; F17.210 Nicotine dependence, cigarettes, uncomplicated; Z20.828 Contact with and (suspected) exposure to other viral communicable diseases; Z88.8 Allergy status to other drugs, medicaments and biological substances; Z82.49 Family history of ischemic heart disease and other diseases of the circulatory system; Z80.0 Family history of malignant neoplasm of digestive organs
CPT/HCPCS: 36415; 71045; 80053; 81000; 83605; 83615; 84145; 84703; 85025; 85379; 85610; 85652; 85730; 86141; 87040; 87088; 87430; 87635; 87804; 93005; 93041

== ENCOUNTER 2020-09-06 20:28 | Emergency (ER) | payer SELFPAY ==
[~2020-09-06] VITALS: Ht 182 cm; Wt 111.0 kg
[~2020-09-06 20:28] MED LIST changes: +CEFD300C3 PO
--- NOTE | 2020-09-06 20:58 | NUR ---
PT REPORTS COUGH, SORE THROAT, NAUSEA AND VOMITING X SEVERAL DAYS. REPORTS ONE DAY OF FEVER UP TO 101.7.
[2020-09-06] MEDS ORDERED: ONDANSETRON 4 MG (ZOFRAN) ORAL DISSOLVE TAB SL ONE (21:15)
--- NOTE | 2020-09-06 21:42 | Diagnostic Imaging Report ---
INDICATION: Cough. COMPARISON: 04/20/2020. EXAMINATION: Single view of the chest was obtained. FINDINGS: Clear lungs, bilaterally. The heart is normal. There is no pneumothorax but osseous structures are normal. IMPRESSION: Negative chest. Dictated by: Dictated on workstation # [id number]
--- NOTE | 2020-09-06 22:12 | ED Respiratory ---
General Chief Complaint: Cough/Cold/Flu Symptoms Stated Complaint: FEVER,COUGH, SOB, N/V Nursing Triage Note: PT HERE WITH COUGH, SORE THROAT, SINUS DRAINAGE, AND VOMITING X 1 WK. Source: patient Exam Limitations: no limitations History of Present Illness Date Seen by Provider: Sep 06, 2020 Time Seen by Provider: 20:55 Initial Comments This 30-year-old young lady presents with flulike symptoms including cough, sore throat, congestion, and vomiting for about 5 days. She has continued to work during this time. She developed fever up to 101 yesterday. Allergies and Home Medications Allergies Coded Allergies: diphenhydramine (Verified Allergy, Unknown, 10/25/19) Home Medications Albuterol Sulfate 1 Puff Puff, 2 PUFF IH Q4H PRN for COUGH 1 PUFF = 90 MCG Prescribed by: JUSTYNA NUÑEZ on 10/25/19 0602 Benzonatate 100 Mg Capsule, 100 MG PO Q6H PRN for COUGH Prescribed by: JUSTYNA NUÑEZ on 10/25/19 0602 Benzonatate 100 Mg Capsule, 200 MG PO TID Prescribed by: LUIS GARSIA on 09/06/20 2240 Cefdinir 300 Mg Capsule, 300 MG PO BID Prescribed by: DOMENIC REECE on 04/20/20 1404 Patient Home Medication List Home Medication List Reviewed: Yes Review of Systems Review of Systems Constitutional: see HPI EENTM: see HPI Respiratory: see HPI Cardiovascular: no symptoms reported Gastrointestinal: see HPI Genitourinary: no symptoms reported : No Musculoskeletal: no symptoms reported Skin: no symptoms reported Psychiatric/Neurological: No Symptoms Reported Hematologic/Lymphatic: No Symptoms Reported Past Aaimxob-Axgxav-Zdrrij Hx Past Med/Social Hx: Reviewed Nursing Past Med/Soc Hx Patient Social History Alcohol Use: Denies Use Recreational Drug Use: No Smoking Status: Current Everyday Smoker Type Used: Cigarettes Former Smoker, Quit: May 07, 2016 2nd Hand Smoke Exposure: Yes Recent Foreign Travel: No Contact w/Someone Who Travel: No Recent Infectious Disease Expo: No Recent Hopitalizations: No Immunizations Up To Date Tetanus Booster (TDap): Unknown PED Vaccines UTD: No Date of Influenza Vaccine: Aug 19, 2016 Seasonal Allergies Seasonal Allergies: Yes Past Medical History Surgeries: No Respiratory: No Asthma Cardiac: Yes (NO MEDICATIONS FOR A YEAR. PER PT ON 04/20/20) Hypertension Neurological: No Reproductive Disorders: No Female Reproductive Disorders: Denies Sexually Transmitted Disease: No HIV/AIDS: No Genitourinary: No Gastrointestinal: No Musculoskeletal: No Endocrine: No HEENT: No Cancer: No Psychosocial: Yes Anxiety, Bipolar, Depression Integumentary: No Blood Disorders: No Adverse Reaction/Blood Tranf: No Family Medical History Asthma 19 MOTHER G8 SISTER Maternal grandmother Colon cancer Maternal grandfather Paternal grandmother Diabetes mellitus Maternal grandfather Hypertension Maternal grandfather Maternal grandmother No Pertinent Family Hx Physical Exam Vital Signs - First Documented 09/06/20 20:53 Temp 36.6 Pulse 88 Resp 18 B/P (MAP) 133/81 (98) Pulse Ox 99 O2 Delivery Room Air Capillary Refill : Less Than 3 Seconds Height: 6'0" Weight: 254lbs. 0.0oz. 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, no motor/sensory deficits, alert, normal mood/affect, oriented x 3 Skin: normal color, warm/dry Progress/Results/Core Measures Suspected Sepsis Recent Fever Within 48 Hours: Yes Infection Criteria Present: None New/Unexplained Altered Menta: No Sepsis Screen: No Definite Risk SIRS Temperature: Pulse: 88 Respiratory Rate: 18 Blood Pressure 133 /81 Mean: 98 Results/Orders Lab Results Laboratory Tests Test 09/06/20 21:04 Range/Units Group A Streptococcus Screen NEGATIVE NEGATIVE Micro Results Microbiology 09/06/20 Influenza Types A,B Antigen (ISHAAN) - Final, Complete My Orders Orders - LUIS MENDEZ MD Urine Bedside (09/06/20 21:02) Ondansetron Oral Dissolve Tab (Zofran (09/06/20 21:15) Influenza A And B Antigens (09/06/20 21:02) Rapid Strep A Screen (09/06/20 21:02) Coronavirus Sars-Cov-2 So 2018 (09/06/20 21:02) Chest 1 View, Ap/Pa Only (09/06/20 21:02) Benzonatate Capsule (Tessalon Perles) (09/06/20 22:45) Medications Given in ED Vital Signs/I&O 09/06/20 09/06/20 20:53 23:02 Temp 36.6 36.6 Pulse 88 88 Resp 18 18 B/P (MAP) 133/81 (98) 133/81 (98) Pulse Ox 99 99 O2 Delivery Room Air Capillary Refill : Less Than 3 Seconds Blood Pressure Mean: 98 Progress Note : Progress Note flu and rapid strep tests were negative. COVID PCR swab was obtained. Zofran was given for nausea and Tessalon Perles were given for cough suppression. Patient was discharged home. We reviewed COVID 19 precautions and quarantine instructions. Diagnostic Imaging Diagonstic Imaging: Xray Plain Films/CT/US/NM/MRI: chest Comments Chest x-ray viewed by me and report reviewed. See report below: NAME: DELTA [facility] REC#: [id number] PT STATUS: REG ER : 1990 PHYSICIAN: LUIS MENDEZ MD ADMIT DATE: 09/06/20/ER Signed Date of Exam:09/06/20 CHEST 1 VIEW, AP/PA ONLY INDICATION: Cough. COMPARISON: 04/20/2020. EXAMINATION: Single view of the chest was obtained. FINDINGS: Clear lungs, bilaterally. The heart is normal. There is no pneumothorax but osseous structures are normal. IMPRESSION: Negative chest. Dictated by: Dictated on workstation # [id number] Dict: 09/06/202139 Trans: 09/06/202141 [facility] [id number] Interpreted by: ARLETH REYES Electronically signed by: ARLETH REYES 09/06/202141 Departure Impression Primary Impression: Flu-like symptoms Additional Impression: Person under investigation for COVID-19 Disposition: 01 HOME, SELF-CARE Condition: Stable Departure-Patient Inst. Decision time for Depature: 22:38 Referrals: MAURA CHATTERJEE MD (PCP/Family) Primary Care Physician Patient Instructions: Coronavirus Disease 2019 (COVID-19) Overview Add. Discharge Instructions: You're presently a person under investigation for COVID-19. Please remain in quarantine until the result of your COVID-19 testing is known. Continue using your albuterol inhaler as prescribed. Use Tessalon Perles as prescribed as a cough suppressant. For pain or fever or you may use ibuprofen and/or Tylenol. Call your doctor or return to care if you have worsening symptoms. All discharge instructions reviewed with patient and/or family. Voiced understanding. Scripts Benzonatate (TESSALON PERLES) 100 Mg Capsule 200 MG PO TID, #20 CAP Prov: LUIS MENDEZ MD 09/06/20 Work/School Note: Work Release Form Date Seen in the Emergency Department: Sep 06, 2020 Return to Work: Sep 10, 2020 Other Restrictions Listed Below: Return if no fever or significant symptoms 72 hours and COVID negative. Restrictions: If COVID positive, quarantine until released by health department. LUIS MENDEZ MD Sep 06, 2020 22:12
[2020-09-06] MEDS ORDERED: BENZ100C18 PO (22:40)
[2020-09-06] MEDS ORDERED: BENZONATATE 100 MG (TESSALON) CAPSULE PO ONE (22:45)
[2020-09-06 23:02] VITALS: BP 133/81
--- NOTE | 2020-09-09 11:08 | NUR ---
CALLED FOR RESULTS NEG RESULTS GIVEN
== END 2020-09-06 23:04 | disposition home or self-care (01) ==
LOC: EDUNIT# 20:28 → ER 20:30
DX: J11.1 Influenza due to unidentified influenza virus with other respiratory manifestations (principal); J45.909 Unspecified asthma, uncomplicated; F17.210 Nicotine dependence, cigarettes, uncomplicated; Z20.828 Contact with and (suspected) exposure to other viral communicable diseases; Z82.49 Family history of ischemic heart disease and other diseases of the circulatory system; Z80.0 Family history of malignant neoplasm of digestive organs; Z83.3 Family history of diabetes mellitus; Z88.8 Allergy status to other drugs, medicaments and biological substances
CPT/HCPCS: 71045; 84703; 87430; 87804; 99283; U0002; 87635

== ENCOUNTER 2021-03-21 21:03 | Emergency (ER) | payer SELFPAY ==
[2021-03-21] MEDS ORDERED: PROMETHAZINE INJ 25 MG/ML (PHENERGAN) AMP IVP ONE (22:00)
[2021-03-21] MEDS ORDERED: LACTATED RINGERS 1,000 ML IV ONE (22:00)
[2021-03-21 22:07] LABS: BASOPHILS % (AUTO) 0 % (0-10); EOSINOPHILS # (AUTO) 0.3 10^3/uL (0.0-0.3); EOSINOPHILS % (AUTO) 3 % (0-10); HEMATOCRIT 44 % (35-52); LYMPHOCYTES # (AUTO) 2.9 10^3/uL (1.0-4.0); LYMPHOCYTES % (AUTO) 31 % (12-44); MEAN CORPUSCULAR HEMOGLOBIN 31 pg (25-34); MEAN CORPUSCULAR HGB CONC 34 g/dL (32-36); MEAN CORPUSCULAR VOLUME 91 fL (80-99); MEAN PLATELET VOLUME 10.9 fL (9.0-12.2); MONOCYTES # (AUTO) 0.8 10^3/uL (0.0-1.0); MONOCYTES % (AUTO) 8 % (0-12); NEUTROPHILS # (AUTO) 5.6 10^3/uL (1.8-7.8); NEUTROPHILS % (AUTO) 58 % (42-75); PLATELET COUNT 198 10^3/uL (130-400); WHITE BLOOD COUNT 9.6 10^3/uL (4.3-11.0)
[2021-03-21 22:11] LABS: BILIRUBIN,URINE NEGATIVE (NEGATIVE); CLARITY,URINE SL CLOUDY; COLOR,URINE YELLOW; GLUCOSE, URINE (UA) NEGATIVE (NEGATIVE); KETONES,URINE TRACE (NEGATIVE); LEUKOCYTE ESTERASE ,URINE NEGATIVE (NEGATIVE); NITRITE,URINE NEGATIVE (NEGATIVE); PH,URINE 5.5 (5-9); PROTEIN,URINE NEGATIVE (NEGATIVE)
[2021-03-21 22:21] LABS: ALANINE AMINOTRANSFERASE 42 U/L (0-55); ALBUMIN 4.1 GM/DL (3.2-4.5); ALKALINE PHOSPHATASE 63 U/L (40-136); BILIRUBIN,TOTAL 0.5 MG/DL (0.1-1.0); BUN/CREATININE RATIO 16; CALCIUM 9.1 MG/DL (8.5-10.1); CARBON DIOXIDE 20 MMOL/L (21-32); CHLORIDE 111 MMOL/L (98-107); GFR ESTIMATED > 60; GLUCOSE 99 MG/DL (70-105); MAGNESIUM 1.7 MG/DL (1.6-2.4); POTASSIUM 3.9 MMOL/L (3.6-5.0); SODIUM 142 MMOL/L (135-145)
[2021-03-21 22:24] LABS: BACTERIA,URINE NEGATIVE /HPF
[2021-03-22] MEDS ORDERED: PROM25TA14 PO (00:27)
--- NOTE | 2021-03-22 00:28 | ED General ---
General Chief Complaint: Abdominal/GI Problems Stated Complaint: VOMITING/SOB/APPROX 9-10 WKS PREG Source of Information: Patient Exam Limitations: No Limitations History of Present Illness Date Seen by Provider: Mar 21, 2021 Time Seen by Provider: 21:50 Initial Comments This 30-year-old young lady presents to emergency room after finding out she was by home urine test 2 days ago and is now experiencing vomiting nonstop throughout the day. She reports prior high risk with preeclampsia, placental previa, and related hypertension. She tried taking Tums at home but immediately threw them up. She has had a minor cough in the past couple of days but denies fever. She reports numerous negative Covid tests in the past but has not had one recently. She is afebrile. Allergies and Home Medications Allergies Coded Allergies: diphenhydramine (Verified Allergy, Unknown, 10/25/19) Home Medications Albuterol Sulfate 1 Puff Puff, 2 PUFF IH Q4H PRN for COUGH 1 PUFF = 90 MCG Prescribed by: JUSTYNA NUÑEZ on 10/25/19 0602 Benzonatate 100 Mg Capsule, 100 MG PO Q6H PRN for COUGH Prescribed by: JUSTYNA NUÑEZ on 10/25/19 0602 Benzonatate 100 Mg Capsule, 200 MG PO TID Prescribed by: LUIS GARSIA on 09/06/20 2240 Cefdinir 300 Mg Capsule, 300 MG PO BID Prescribed by: DOMENIC REECE on 04/20/20 1404 Promethazine HCl 25 Mg Tablet, 25 MG PO Q6H PRN for NAUSEA/VOMITING Prescribed by: LUIS GARSIA on 03/22/21 0027 Patient Home Medication List Home Medication List Reviewed: Yes Review of Systems Review of Systems Constitutional: no symptoms reported EENTM: no symptoms reported Respiratory: no symptoms reported Cardiovascular: no symptoms reported Gastrointestinal: see HPI Genitourinary: see HPI : Yes Musculoskeletal: no symptoms reported Skin: no symptoms reported Psychiatric/Neurological: No Symptoms Reported Hematologic/Lymphatic: No Symptoms Reported Past Bixpiww-Qzlbms-Szqvry Hx Past Med/Social Hx: Reviewed and Corrections made Patient Social History Type Used: Cigarettes Former Smoker, Quit: May 07, 2016 2nd Hand Smoke Exposure: Yes Recent Hopitalizations: No Immunizations Up To Date Tetanus Booster (TDap): Unknown PED Vaccines UTD: No Date of Influenza Vaccine: Aug 19, 2016 Seasonal Allergies Seasonal Allergies: Yes Past Medical History Surgeries: No Respiratory: No Asthma Cardiac: Yes (NO MEDICATIONS FOR A YEAR. PER PT ON 04/20/20) Hypertension Neurological: No Reproductive Disorders: Yes (History of preeclampsia, placental previa, and -induced hypertensi) Sexually Transmitted Disease: No HIV/AIDS: No Genitourinary: No Gastrointestinal: No Musculoskeletal: No Endocrine: No HEENT: No Cancer: No Psychosocial: Yes Anxiety, Bipolar, Depression Integumentary: No Blood Disorders: No Adverse Reaction/Blood Tranf: No Family Medical History Asthma 19 MOTHER G8 SISTER Maternal grandmother Colon cancer Maternal grandfather Paternal grandmother Diabetes mellitus Maternal grandfather Hypertension Maternal grandfather Maternal grandmother No Pertinent Family Hx Physical Exam Vital Signs Vital Signs - First Documented 03/22/21 00:30 Pulse 86 Resp 14 B/P (MAP) 127/91 Pulse Ox 98 O2 Delivery Room Air Capillary Refill : Height, Weight, BMI Height: 6'0" Weight: 254lbs. 0.0oz. 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 Skin: Normal Color, Warm/Dry Progress/Results/Core Measures Suspected Sepsis SIRS Temperature: Pulse: Respiratory Rate: Laboratory Tests 03/21/21 21:20: White Blood Count 9.6 Blood Pressure / Mean: Laboratory Tests 03/21/21 21:20: Creatinine 0.70, Platelet Count 198, Total Bilirubin 0.5 Results/Orders Lab Results Laboratory Tests Test 03/21/21 21:15 03/21/21 21:20 03/21/21 23:50 Range/Units Urine Color YELLOW Urine Clarity SL CLOUDY Urine pH 5.5 5-9 Urine Specific [place] >=1.030 1.016-1.022 Urine Protein NEGATIVE NEGATIVE Urine Glucose (UA) NEGATIVE NEGATIVE Urine Ketones TRACE H NEGATIVE Urine Nitrite NEGATIVE NEGATIVE Urine Bilirubin NEGATIVE NEGATIVE Urine Urobilinogen 1.0 < = 1.0 MG/DL Urine Leukocyte Esterase NEGATIVE NEGATIVE Urine RBC (Auto) NEGATIVE NEGATIVE Urine RBC NONE /HPF Urine WBC NONE /HPF Urine Squamous Epithelial Cells 10-25 H /HPF Urine Crystals NONE /LPF Urine Bacteria NEGATIVE /HPF Urine Casts NONE /LPF Urine Mucus NEGATIVE /LPF Urine Culture Indicated NO White Blood Count 9.6 4.3-11.0 10^3/uL Red Blood Count 4.87 3.80-5.11 10^6/uL Hemoglobin 15.0 11.5-16.0 g/dL Hematocrit 44 35-52 % Mean Corpuscular Volume 91 80-99 fL Mean Corpuscular Hemoglobin 31 25-34 pg Mean Corpuscular Hemoglobin Concent 34 32-36 g/dL Red Cell Distribution Width 12.5 10.0-14.5 % Platelet Count 198 130-400 10^3/uL Mean Platelet Volume 10.9 9.0-12.2 fL Immature Granulocyte % (Auto) 0 % Neutrophils (%) (Auto) 58 42-75 % Lymphocytes (%) (Auto) 31 12-44 % Monocytes (%) (Auto) 8 0-12 % Eosinophils (%) (Auto) 3 0-10 % Basophils (%) (Auto) 0 0-10 % Neutrophils # (Auto) 5.6 1.8-7.8 10^3/uL Lymphocytes # (Auto) 2.9 1.0-4.0 10^3/uL Monocytes # (Auto) 0.8 0.0-1.0 10^3/uL Eosinophils # (Auto) 0.3 0.0-0.3 10^3/uL Basophils # (Auto) 0.0 0.0-0.1 10^3/uL Immature Granulocyte # (Auto) 0.0 0.0-0.1 10^3/uL Sodium Level 142 135-145 MMOL/L Potassium Level 3.9 3.6-5.0 MMOL/L Chloride Level 111 H 98-107 MMOL/L Carbon Dioxide Level 20 L 21-32 MMOL/L Anion Gap 11 5-14 MMOL/L Blood Urea Nitrogen 11 7-18 MG/DL Creatinine 0.70 0.60-1.30 MG/DL Estimat Glomerular Filtration Rate > 60 BUN/Creatinine Ratio 16 Glucose Level 99 70-105 MG/DL Calcium Level 9.1 8.5-10.1 MG/DL Corrected Calcium 9.0 8.5-10.1 MG/DL Magnesium Level 1.7 1.6-2.4 MG/DL Total Bilirubin 0.5 0.1-1.0 MG/DL Aspartate Amino Transf (AST/SGOT) 27 5-34 U/L Alanine Aminotransferase (ALT/SGPT) 42 0-55 U/L Alkaline Phosphatase 63 40-136 U/L Total Protein 7.0 6.4-8.2 GM/DL Albumin 4.1 3.2-4.5 GM/DL Serum Test, Qualitative POSITIVE NEGATIVE Coronavirus 2019 ([facility]) Not Detected Not Detecte My Orders Orders - LUIS MENDEZ MD Covid 19 Inhouse Test (03/21/21 21:51) Cbc With Automated Diff (03/21/21 21:51) Comprehensive Metabolic Panel (03/21/21 21:51) Hcg,Qualitative Serum (03/21/21 21:51) Magnesium (03/21/21 21:51) Ua Culture If Indicated (03/21/21 21:51) Promethazine Injection (Phenergan Injec (03/21/21 22:00) Ed Iv/Invasive Line Start (03/21/21 21:51) Lactated Ringers (Lr 1000 Ml Iv Solution (03/21/21 22:00) Medications Given in ED Vital Signs/I&O 03/22/21 00:30 Pulse 86 Resp 14 B/P (MAP) 127/91 Pulse Ox 98 O2 Delivery Room Air Capillary Refill : Progress Note : Progress Note Patient was treated with Phenergan and a liter of IV fluids with improvement in symptoms. Work-up was unremarkable including COVID-19 testing. Departure Impression Primary Impression: Nausea and vomiting Qualified Codes: R11.2 - Nausea with vomiting, unspecified Additional Impressions: Cough Qualified Codes: Z34.90 - Encounter for supervision of normal , unspecified, unspecified trimester Disposition: HOME, SELF-CARE Condition: Improved Departure-Patient Inst. Decision time for Depature: 00:26 Referrals: MAURA CHATTERJEE MD (PCP/Family) Primary Care Physician Patient Instructions: Nausea and Vomiting of Add. Discharge Instructions: Your labs were unremarkable and that your COVID-19 test was negative. Drink plenty of clear liquids and eat small quantities of healthy foods often. Eating small amounts often should help prevent nausea and vomiting. Use Phenergan as prescribed for nausea. Please be advised this medication may cause drowsiness. Contact your obstetrical provider tomorrow for further instructions. Call with questions or concerns. Return to the ER for worsening symptoms. All discharge instructions reviewed with patient and/or family. Voiced understanding. Scripts Promethazine HCl (Promethazine Tablet) 25 Mg Tablet 25 MG PO Q6H PRN for NAUSEA/VOMITING, #10 TAB Prov: LUIS MENDEZ MD 03/22/21 Work/School Note: Work Release Form Date Seen in the Emergency Department: Mar 22, 2021 Return to Work: Mar 23, 2021 Restrictions: No Restrictions LUIS MENDEZ MD Mar 22, 2021 00:28
[2021-03-22 00:30] VITALS: BP 127/91
== END 2021-03-22 00:35 | disposition home or self-care (01) ==
LOC: EDUNIT# 21:03 → ER 21:05
DX: O21.0 Mild hyperemesis gravidarum (principal); R05 Cough; J45.909 Unspecified asthma, uncomplicated; I10 Essential (primary) hypertension; Z3A.00 Weeks of gestation of pregnancy not specified; Z88.8 Allergy status to other drugs, medicaments and biological substances; Z87.891 Personal history of nicotine dependence; Z20.822 Contact with and (suspected) exposure to COVID-19
CPT/HCPCS: 80053; 81000; 83735; 84703; 85025; U0002; 36415; 87635; 99282

== ENCOUNTER 2021-04-06 08:04 | Emergency (ER) | payer OTHER ==
[~2021-04-06] VITALS: Ht 182 cm; Wt 111.3 kg
[~2021-04-06 08:04] MED LIST changes: +PROM25TA14 PO
--- NOTE | 2021-04-06 08:29 | ED General ---
General Stated Complaint: NAUSEA,COUGH-POSSIBLE EXPOSURSE 13 WKS PREG Source of Information: Patient Exam Limitations: No Limitations History of Present Illness Date Seen by Provider: April 06, 2021 Time Seen by Provider: 08:15 Initial Comments Patient is a 30-year-old female who is a G4, P1 who presents to the emergency department today with a chief complaint of concern for carbon monoxide poisoning. Patient states that she has been working at [employer] which was shut down last evening for a gas leak. Patient states that she has had headaches, nausea and vomiting a little lower abdominal cramping over the course of the last several days. Patient states that she works a lot. She is concerned that she might have been exposed to carbon monoxide. She denies any loss of consciousness, confusion. She is uncertain what's early symptoms versus carbon monoxide poisoning. Patient is approximately 13 weeks . 2 previous miscarriages. One previous delivery. Patient does smoke cigarettes. No other recent illnesses or injuries. All other review of systems reviewed and negative except as stated above. Timing/Duration: 2-3 Days Severity: Mild Allergies and Home Medications Allergies Coded Allergies: diphenhydramine (Verified Allergy, Unknown, 10/25/19) Home Medications Albuterol Sulfate 1 Puff Puff, 2 PUFF IH Q4H PRN for COUGH 1 PUFF = 90 MCG Prescribed by: JUSTYNA NUÑEZ on 10/25/19 0602 Benzonatate 100 Mg Capsule, 100 MG PO Q6H PRN for COUGH Prescribed by: JUSTYNA NUÑEZ on 10/25/19 0602 Benzonatate 100 Mg Capsule, 200 MG PO TID Prescribed by: LUIS GARSIA on 09/06/20 2240 Cefdinir 300 Mg Capsule, 300 MG PO BID Prescribed by: DOMENIC REECE on 04/20/20 1404 Promethazine HCl 25 Mg Tablet, 25 MG PO Q6H PRN for NAUSEA/VOMITING Prescribed by: LUIS GARSIA on 03/22/21 0027 Patient Home Medication List Home Medication List Reviewed: Yes Review of Systems Review of Systems Constitutional: see HPI EENTM: no symptoms reported Respiratory: no symptoms reported Cardiovascular: no symptoms reported Gastrointestinal: diarrhea, nausea, vomiting Genitourinary: no symptoms reported : Yes Musculoskeletal: no symptoms reported Skin: no symptoms reported Psychiatric/Neurological: No Symptoms Reported All Other Systems Reviewed Negative Unless Noted: Yes Past Qroswsf-Mazikc-Yzqdrn Hx Patient Social History Type Used: Cigarettes Former Smoker, Quit: May 07, 2016 2nd Hand Smoke Exposure: Yes Recent Hopitalizations: No Immunizations Up To Date Tetanus Booster (TDap): Unknown PED Vaccines UTD: No Date of Influenza Vaccine: Aug 19, 2016 Seasonal Allergies Seasonal Allergies: Yes Past Medical History Surgeries: No Respiratory: No Asthma Cardiac: Yes (NO MEDICATIONS FOR A YEAR. PER PT ON 04/20/20) Hypertension Neurological: No Reproductive Disorders: Yes (History of preeclampsia, placental previa, and -induced hypertensi) Sexually Transmitted Disease: No HIV/AIDS: No Genitourinary: No Gastrointestinal: No Musculoskeletal: No Endocrine: No HEENT: No Cancer: No Psychosocial: Yes Anxiety, Bipolar, Depression Integumentary: No Blood Disorders: No Adverse Reaction/Blood Tranf: No Family Medical History Asthma 19 MOTHER G8 SISTER Maternal grandmother Colon cancer Maternal grandfather Paternal grandmother Diabetes mellitus Maternal grandfather Hypertension Maternal grandfather Maternal grandmother No Pertinent Family Hx Physical Exam Vital Signs Vital Signs - First Documented 04/06/21 08:15 Temp 36.8 Pulse 94 Resp 18 B/P (MAP) 153/99 (117) Pulse Ox 99 O2 Delivery Room Air Capillary Refill : Height, Weight, BMI Height: 6'0" Weight: 254lbs. 0.0oz. 115.676238by; 33.00 BMI Method:Stated General Appearance: No Apparent Distress, WD/WN Eyes: Bilateral Eye Normal Inspection, Bilateral Eye PERRL, Bilateral Eye EOMI HEENT: PERRL/EOMI Neck: Normal Inspection Respiratory: Lungs Clear, Normal Breath Sounds, No Accessory Muscle Use, No Respiratory Distress, Wheezing (Scant expiratory wheeze noted posteriorly left apical) Cardiovascular: Regular Rate, Rhythm Gastrointestinal: Non Tender, Soft Extremity: Normal Inspection Neurologic/Psychiatric: Alert, Oriented x3, No Motor/Sensory Deficits, Normal Mood/Affect Skin: Normal Color, Warm/Dry Progress/Results/Core Measures Suspected Sepsis SIRS Temperature: Pulse: Respiratory Rate: Blood Pressure / Mean: Results/Orders Lab Results Laboratory Tests Test 04/06/21 08:38 Range/Units Carboxyhemoglobin 6.1 H 0.5-2.5 % My Orders Orders - DANIEL LOPEZ MD Carboxyhemoglobin (04/06/21 08:25) Vital Signs/I&O 04/06/21 08:15 Temp 36.8 Pulse 94 Resp 18 B/P (MAP) 153/99 (117) Pulse Ox 99 O2 Delivery Room Air Capillary Refill : Progress Note : Time: 08:57 Progress Note Patient's carboxyhemoglobin level is 6.1. She is also a smoker in addition to her exposure to carbon monoxide. Patient is strongly encouraged to quit smoking for her benefit. I was unable to obtain heart tones either with hand-held Doppler or with bedside ultra sound. Patient may be not quite as far along as she believes she is. Last menstrual cycle was January 06 which would place her at about 12 weeks . I do believe that I was unable to auscultate heart tones secondary to the patient's size. Vaginal ultrasonography might be a better modality to demonstrate heart tones. At this point she has no clinical or objective findings to warrant an invasive ultrasound. She is medically stable. Vital signs look good. Patient has had no vomiting here in the emergency department will be discharged home with supportive care. Return precautions given. All questions sought and answered. Patient is stable for discharge. Departure Impression Primary Impression: Carbon monoxide exposure Additional Impression: First trimester Disposition: 01 HOME, SELF-CARE Condition: Stable Departure-Patient Inst. Decision time for Depature: 08:59 Referrals: MAURA CHATTERJEE MD (PCP/Family) Primary Care Physician Patient Instructions: - The Second Month Add. Discharge Instructions: Drink plenty of fluids to stay well-hydrated. Please try and quit smoking throughout your . Come back to the emergency room for any worsening symptoms of nausea vomiting, abdominal pain or any other emergent concerning symptoms. Copy Copies To 1: MAURA CHATTERJEE MD, KATHRYN M MD April 06, 2021 08:29
[2021-04-06 09:15] VITALS: BP 139/79
== END 2021-04-06 09:15 | disposition home or self-care (01) ==
LOC: EDUNIT# 08:04 → ER 08:08
DX: O26.891 Other specified pregnancy related conditions, first trimester (principal); T58.91XA Toxic effect of carbon monoxide from unspecified source, accidental (unintentional), initial encounter; I10 Essential (primary) hypertension; Z3A.13 13 weeks gestation of pregnancy; Z88.8 Allergy status to other drugs, medicaments and biological substances; Z87.891 Personal history of nicotine dependence
CPT/HCPCS: 82375; 99282

== ENCOUNTER 2021-10-23 20:12 | Outpatient (CLI) | payer SELFPAY ==
[~2021-10-23] VITALS: Ht 182.9 cm; Wt 124.9 kg
[2021-10-23] MEDS ORDERED: FEXO-14 PO ×2 (20:26→23:38)
[2021-10-23 20:35] VITALS: BP 142/89
[2021-10-23 20:45] VITALS: BP 142/89
[2021-10-23 20:59] VITALS: BP 142/89
[2021-10-23 21:25] LABS: BILIRUBIN,URINE NEGATIVE (NEGATIVE); CLARITY,URINE CLEAR; COLOR,URINE ORANGE; GLUCOSE, URINE (UA) NEGATIVE (NEGATIVE); KETONES,URINE NEGATIVE (NEGATIVE); LEUKOCYTE ESTERASE ,URINE TRACE (NEGATIVE); NITRITE,URINE NEGATIVE (NEGATIVE); PROTEIN,URINE NEGATIVE (NEGATIVE)
[2021-10-23 21:39] LABS: AMORPHOUS SEDIMENT,UR FEW AMOR URATES /LPF; BACTERIA,URINE FEW /HPF
[2021-10-23] MEDS ORDERED: LACTATED RINGERS 1,000 ML IV ONE ×2 (21:52→22:00)
[2021-10-23 22:30] VITALS: BP 140/89
[2021-10-23 23:50] VITALS: BP 147/84
[2021-10-24 00:18] VITALS: BP 147/84
== END 2021-10-23 23:55 ==
LOC: LDRP 20:12 → WSo 20:12
PROVIDERS: ATTEND Family Medicine
DX: O62.9 Abnormality of forces of labor, unspecified (principal); Z3A.00 Weeks of gestation of pregnancy not specified
CPT/HCPCS: 81000; 87088

== ENCOUNTER → 2021-11-13 12:15 | Inpatient (IN) | payer OTHER ==
[2021-11-11] VITALS (62 sets, daily range): BP systolic 108–178; BP diastolic 52–97
[2021-11-11 06:53] LABS: BASOPHILS % (AUTO) 0 % (0-10); EOSINOPHILS # (AUTO) 0.2 10^3/uL (0.0-0.3); EOSINOPHILS % (AUTO) 1 % (0-10); HEMATOCRIT 38 % (35-52); HEMOGLOBIN 13.1 g/dL (11.5-16.0); LYMPHOCYTES # (AUTO) 3.6 10^3/uL (1.0-4.0); LYMPHOCYTES % (AUTO) 26 % (12-44); MEAN CORPUSCULAR HEMOGLOBIN 31 pg (25-34); MEAN CORPUSCULAR HGB CONC 35 g/dL (32-36); MEAN CORPUSCULAR VOLUME 90 fL (80-99); MEAN PLATELET VOLUME 10.8 fL (9.0-12.2); MONOCYTES # (AUTO) 1.1 10^3/uL (0.0-1.0); MONOCYTES % (AUTO) 8 % (0-12); NEUTROPHILS # (AUTO) 9.1 10^3/uL (1.8-7.8); NEUTROPHILS % (AUTO) 65 % (42-75); PLATELET COUNT 221 10^3/uL (130-400); WHITE BLOOD COUNT 14.2 10^3/uL (4.3-11.0)
[2021-11-11 07:25] LABS: BAND NEUTROPHILS 1 %; BASOPHILS % (MANUAL) 0 %; EOSINOPHILS % (MANUAL) 1 %; LYMPHOCYTES % (MANUAL) 30 %; MONOCYTES % (MANUAL) 8 %; NEUTROPHILS % (MANUAL) 60 %; RBC MORPH NORMAL
[2021-11-11] MEDS: D5 LR IV SOLUTION 1,000 ML IV SCH ×2 (07:32→15:31)
--- NOTE | 2021-11-11 08:22 | History & Physical-OB ---
OB - Chief Complaint & HPI Date/Time Date of Admission: Date of Admission: Nov 11, 2021 at 06:03 Date seen by a Provider: Nov 11, 2021 Time Seen by a Provider: 08:17 Chief Complaint/History OB-Reason for Admission/Chief: Induction of Labor Hx : 4 Hx Para: 1021 Expected Date of Delivery: Nov 17, 2021 Gestational Age in Weeks: 39 Gestational Age in Days: 1 Other reason for admission: Intermittent hypertension complicating , followed with labs and weekly BPP, growth at 35 weeks 60%, repeat growth at 37 weeks EFW 3147 grams (67th%). EFW on 11/03 3309 (57th%). History of Labs B+ antibody neg, RI, HIV/HepB/RPR NR. Elevated blood pressure as early as 12 weeks intermittently, normal 24 hour urine protein and CMP at baseline and at 21 weeks, then BP improved for sometime. 1 hour glucola normal. GBS bacteriuria. Allergies and Home Medications Allergies Coded Allergies: diphenhydramine (Verified Allergy, Unknown, 10/25/19) Patient Home Medication List Home Medication List Reviewed: Yes Fexofenadine HCl (Any Allergy) 60 Mg Tablet, 60 MG PO DAILY, (Reported) Entered as Reported by: SPENSER TELLO on 10/23/212025 Last Action: Reviewed OB - History Hx of Present Care: Yes Ultrasounds: Normal mid trimester US Obstetrical Complications: Gestational Hypertension Information Induced Hypertension: Yes Maternal Gestational Diabetes: No Hemorrhage: No Obstetrical History Hx : 4 Hx Para: 1 Hx # Term Pregnancies: 1 Hx # Pregnancies: 0 Number of Living Children: 1 Hx Termination: No Hx Total # of Abortions (Spona: 2 Hx Multiple Gestation: No Hx Ectopic : No Hx Stillbirth: No Hx Complication: Yes Hx Induced Hypertens: Yes Hx Maternal Gestational Diabet: No Hx Hemorrhage: No Delivery History Hx Dystocia: No Hx Forceps Assisted Delivery: No Hx Vacuum Extraction Assisted: No Hx Placenta Abnormality: No Hx Distress: No Hx Large For Gestational Age I: No Hx Small for Gestational Age I: No Hx Section: No Hx Vaginal Delivery Post C-Sec: No Hx Blood Disorders: No Adverse Rxn to Tranfusion: No Patient Past Medical History PMHx: ADHD Anxiety Bipolar disorder Depression Asthma PSurgHx: None Social History/Family History Alcohol Use: Denies Use Recreational Drug Use: No Smoking Cessation: Current every day smoker 2nd Hand Smoke Exposure: Yes Immunizations Influenza Vaccine Up-to-Date: Yes; Up-to-Date First/Initial COVID19 Vaccine: June 2021 Second COVID19 Vaccination: August 2021 Hepatitis A: No Hepatitis B: Yes Tetanus Booster (TDap): Less than 5yrs (09/10/21) Rubella: immune RPR/VDRL: Negative GBS Status: Positive HBsAG: Negative OB - Admission Exam Physical Exam Vitals: Vital Signs 11/11/21 07:24 Temp 36.7 Pulse 98 Resp 18 Pulse Ox 99 O2 Delivery Room Air HEENT: NCAT Abdomen: Non tender Extremities: Normal Cervical Dilatation: 4cm Effacement: 0% Station: -3 Membranes: Intact Heart Rate: 120's Accelerations: Accelerations Present Decelerations: No Decelerations Short Term Variability: Present Cell Biology Scientist Variability: Average (6-25) Contractions on Admission: None Benavides Scoring Tool (Modified) Dilation (cm): 3-4cm (2) Effacement (%): 0-30% (0) Descent/Station: -3 (0) Cervix Consistency: Soft (2) Cervix Position: Posterior (0) Add 1 point for: Each previous vaginal delivery (1) Benavides Score: 5 Labs Laboratory Tests Test 11/11/21 06:40 Range/Units White Blood Count 14.2 H 4.3-11.0 10^3/uL Red Blood Count 4.23 3.80-5.11 10^6/uL Hemoglobin 13.1 11.5-16.0 g/dL Hematocrit 38 35-52 % Mean Corpuscular Volume 90 80-99 fL Mean Corpuscular Hemoglobin 31 25-34 pg Mean Corpuscular Hemoglobin Concent 35 32-36 g/dL Red Cell Distribution Width 13.3 10.0-14.5 % Platelet Count 221 130-400 10^3/uL Mean Platelet Volume 10.8 9.0-12.2 fL Immature Granulocyte % (Auto) 0 % Neutrophils (%) (Auto) 65 42-75 % Lymphocytes (%) (Auto) 26 12-44 % Monocytes (%) (Auto) 8 0-12 % Eosinophils (%) (Auto) 1 0-10 % Basophils (%) (Auto) 0 0-10 % Neutrophils # (Auto) 9.1 H 1.8-7.8 10^3/uL Lymphocytes # (Auto) 3.6 1.0-4.0 10^3/uL Monocytes # (Auto) 1.1 H 0.0-1.0 10^3/uL Eosinophils # (Auto) 0.2 0.0-0.3 10^3/uL Basophils # (Auto) 0.0 0.0-0.1 10^3/uL Immature Granulocyte # (Auto) 0.1 0.0-0.1 10^3/uL Neutrophils % (Manual) 60 % Lymphocytes % (Manual) 30 % Monocytes % (Manual) 8 % Eosinophils % (Manual) 1 % Basophils % (Manual) 0 % Band Neutrophils 1 % Blood Morphology Comment NORMAL OB - Assessment/Plan/Diagnosis Assessment Admission Dx Term intrauterine at 39 weeks gestation Chronic vs gestational hypertension GBS positive Rubella immune Tobacco use Admission Status: Inpatient Order (span 2 midnights) Reason for Inpatient Admission: Labor, delivery and course Plan Plan: Induction Induction Method: per Pitocin Protocol Other Plan Ampicillin for GBS pos Blood pressure okay on admit, monitor closely MAURA CHATTERJEE MD Nov 11, 2021 08:22
[2021-11-11] MEDS: EPIDURAL (fentaNYL 2 MCG/ML BUPIVA 0.125%)100 ML BAG EPI PRN ×2 (09:52→18:30)
[2021-11-11] MEDS: AMPICILLIN FOR IV USE 1,000 MG in NS (IVPB) 50 ML IV SCH ×2 (14:02→18:30)
--- NOTE | 2021-11-11 20:50 | OB Labor & Delivery Record ---
Vag Delivery Note Vag Delivery Note Date of Delivery: 11/11/21 Preoperative Diagnosis: Starr Clay is a (31 /Para 4 / 1, Gestational Age (wks)39with 1 day Postoperative Diagnosis: Same Surgeon: MAURA CHATTERJEE Anesthesia: Epidural Delivery Type: Findings: Viable male infant, apgars 7/9, weight 6#9 Lacerations: bilateral periurethral Intact placenta with 3 vessel cord. Nuchal cord x 1 easily reduced, no body cord or shoulder dystocia Estimated Blood Loss: 250 ml Complications: None Condition: Stable Description of Procedure: The patient is a 31 year old female who presented for induction of labor due to hypertension. She was admitted and informed consent was obtained. Her labor course was unremarkable. She progressed to complete dilatation and began to push. She was then set up for delivery. The infant's head was delivered atraumatically in the OA position. Nuchal cord x 1 reduced at perineum. The shoulders and remainder of the infant's body were then delivered without difficulty. Upon delivery, the was placed on maternal abdomen. The cord was doubly clamped and cut and the infant was vigorous and remained on maternal abdomen. An intact placenta with 3-vessel cord delivered via Hannah and there was found to be minimal bleeding.~ Vigorous fundal massage was performed and the fundus was found to be firm. IV oxytocin was given. Examination of the vagina and perineum revealed a right perirurethral laceration repaired in simple running fashion with 3-0 vicryl rapide suture. Following the repair, sponge, instrument and needle counts were correct. Mom and baby were both in stable condition in the labor suite. Vitals - Labs Vital Signs - I&O Vital Signs Date Time Temp Pulse Resp B/P (MAP) Pulse Ox O2 Delivery O2 Flow Rate FiO2 11/11/21 19:00 82 18 119/59 (79) 11/11/21 18:45 80 18 108/52 (70) 11/11/21 18:30 85 18 133/77 (95) 11/11/21 18:15 90 18 133/81 (98) 11/11/21 18:00 87 18 130/86 (101) 11/11/21 17:45 72 18 128/67 (87) 11/11/21 17:15 75 18 118/59 (78) 11/11/21 17:00 76 18 122/57 (78) 11/11/21 16:45 75 18 121/60 (80) 11/11/21 16:30 82 18 121/59 (79) 11/11/21 16:15 86 18 138/77 (97) 11/11/21 16:00 86 18 138/77 (97) 11/11/21 15:45 90 18 135/78 (97) 11/11/21 15:00 82 18 136/70 (92) 11/11/21 14:45 86 18 136/73 (94) 11/11/21 14:30 83 18 139/69 (92) 11/11/21 14:15 86 18 137/70 (92) 11/11/21 14:00 76 18 142/66 (91) 11/11/21 13:45 86 18 153/70 (97) 11/11/21 13:30 79 18 147/72 (97) 11/11/21 13:00 87 18 144/82 (102) 11/11/21 12:45 87 18 139/69 (92) 11/11/21 12:00 107 18 147/65 (92) 11/11/21 11:45 73 18 146/65 (92) 11/11/21 11:30 95 18 154/67 (96) 11/11/21 11:15 83 18 152/70 (97) 11/11/21 11:00 88 18 146/67 (93) 11/11/21 10:45 96 18 142/66 (91) 11/11/21 10:30 79 18 149/69 (95) 11/11/21 10:25 86 18 146/75 (98) 11/11/21 10:20 87 18 138/76 (96) 11/11/21 10:15 108 18 144/78 (100) 98 11/11/21 10:08 96 18 139/66 (90) 98 11/11/21 10:05 103 18 150/74 (99) 98 11/11/21 10:01 99 18 154/71 (98) 98 11/11/21 09:58 108 18 144/72 (96) 11/11/21 09:55 108 18 134/74 (94) 99 11/11/21 09:52 101 18 138/76 (96) 99 11/11/21 09:49 101 18 144/83 (103) 99 11/11/21 09:46 99 18 139/85 (103) 98 11/11/21 09:43 111 18 135/90 (105) 11/11/21 09:40 97 18 138/91 (107) 98 11/11/21 09:15 90 18 141/81 (101) 11/11/21 07:24 36.7 98 18 99 Room Air Labs Laboratory Tests 11/11/21 06:40: White Blood Count 14.2H, Red Blood Count 4.23, Hemoglobin 13.1, Hematocrit 38, Mean Corpuscular Volume 90, Mean Corpuscular Hemoglobin 31, Mean Corpuscular Hemoglobin Concent 35, Red Cell Distribution Width 13.3, Platelet Count 221, Mean Platelet Volume 10.8, Immature Granulocyte % (Auto) 0, Neutrophils (%) (Auto) 65, Lymphocytes (%) (Auto) 26, Monocytes (%) (Auto) 8, Eosinophils (%) (Auto) 1, Basophils (%) (Auto) 0, Neutrophils # (Auto) 9.1H, Lymphocytes # (Auto) 3.6, Monocytes # (Auto) 1.1H, Eosinophils # (Auto) 0.2, Basophils # (Auto) 0.0, Immature Granulocyte # (Auto) 0.1, Neutrophils % (Manual) 60, Lymphocytes % (Manual) 30, Monocytes % (Manual) 8, Eosinophils % (Manual) 1, Basophils % (Manual) 0, Band Neutrophils 1, Blood Morphology Comment NORMAL MAURA CHATTERJEE MD Nov 11, 2021 20:50
[2021-11-11] MEDS: CATHETER FLUSH 10 ML SYR IV SCH (22:16)
[2021-11-11] MEDS: DOCUSATE SODIUM 100 MG (COLACE) CAP PO SCH (23:14)
[2021-11-11] MEDS: IBUPROFEN 600 MG (MOTRIN) TAB PO PRN (23:15)
[2021-11-12 04:30] VITALS: BP 134/72
[2021-11-12] MEDS: CATHETER FLUSH 10 ML SYR IV SCH ×3 (05:44→22:05)
[2021-11-12 06:57] LABS: BASOPHILS % (AUTO) 0 % (0-10); EOSINOPHILS # (AUTO) 0.2 10^3/uL (0.0-0.3); EOSINOPHILS % (AUTO) 1 % (0-10); HEMATOCRIT 35 % (35-52); HEMOGLOBIN 12.2 g/dL (11.5-16.0); LYMPHOCYTES # (AUTO) 3.3 10^3/uL (1.0-4.0); LYMPHOCYTES % (AUTO) 25 % (12-44); MEAN CORPUSCULAR HEMOGLOBIN 31 pg (25-34); MEAN CORPUSCULAR HGB CONC 35 g/dL (32-36); MEAN CORPUSCULAR VOLUME 91 fL (80-99); MEAN PLATELET VOLUME 10.8 fL (9.0-12.2); MONOCYTES # (AUTO) 0.9 10^3/uL (0.0-1.0); MONOCYTES % (AUTO) 6 % (0-12); NEUTROPHILS # (AUTO) 9.1 10^3/uL (1.8-7.8); NEUTROPHILS % (AUTO) 67 % (42-75); PLATELET COUNT 163 10^3/uL (130-400); WHITE BLOOD COUNT 13.5 10^3/uL (4.3-11.0)
[2021-11-12 08:13] VITALS: BP 139/93
[2021-11-12] MEDS: DOCUSATE SODIUM 100 MG (COLACE) CAP PO SCH ×2 (08:17→21:11)
[2021-11-12] MEDS: LORATADINE (CLARITIN) 10 MG TAB PO SCH (08:17)
[2021-11-12] MEDS: IBUPROFEN 600 MG (MOTRIN) TAB PO PRN ×2 (08:17→15:55)
--- NOTE | 2021-11-12 11:37 | Progress Note ---
Subjective Subjective/Events-last exam Doing well. BP improved since delivery. Bleeding slowed. Objective Exam Last Set of Vital Signs Vital Signs Date Time Temp Pulse Resp B/P (MAP) Pulse Ox O2 Delivery O2 Flow Rate FiO2 11/12/21 08:13 36.7 99 18 139/93 (108) 98 Room Air Capillary Refill : Less Than 3 Seconds I&O Intake and Output 11/12/21 00:00 Intake Total 2664.8 ml Balance 2664.8 ml Intake IV Total 2664.8 ml Daily Weight Change No General: Alert, Oriented X3, Cooperative Psych/Mental Status: Mental Status NL, Mood NL Results/Procedures Lab Laboratory Tests 11/12/21 06:35: White Blood Count 13.5H, Red Blood Count 3.88, Hemoglobin 12.2, Hematocrit 35, Mean Corpuscular Volume 91, Mean Corpuscular Hemoglobin 31, Mean Corpuscular Hemoglobin Concent 35, Red Cell Distribution Width 13.4, Platelet Count 163, Mean Platelet Volume 10.8, Immature Granulocyte % (Auto) 0, Neutrophils (%) (Auto) 67, Lymphocytes (%) (Auto) 25, Monocytes (%) (Auto) 6, Eosinophils (%) (Auto) 1, Basophils (%) (Auto) 0, Neutrophils # (Auto) 9.1H, Lymphocytes # (Auto) 3.3, Monocytes # (Auto) 0.9, Eosinophils # (Auto) 0.2, Basophils # (Auto) 0.0, Immature Granulocyte # (Auto) 0.1 Assessment/Plan Assessment/Plan (1) Status post vaginal delivery Assessment & Plan: PPD#1 Hb 12.2 Routine care. Anticipate DC home tomorrow. (2) Gestational hypertension Assessment & Plan: s/p delivery at 39wk - BP improved since delivery NELSY SWEENEY DO Nov 12, 2021 11:37
[2021-11-12 15:55] VITALS: BP 144/82
[2021-11-12 23:29] VITALS: BP 133/77
[~2021-11-13] VITALS: Ht 182.9 cm; Wt 127.7 kg
[2021-11-13 02:50] VITALS: BP 138/80
[2021-11-13] MEDS: CATHETER FLUSH 10 ML SYR IV SCH (06:04)
[2021-11-13] MEDS: IBUPROFEN 600 MG (MOTRIN) TAB PO PRN (08:15)
--- NOTE | 2021-11-13 08:29 | Discharge Summary ---
Discharge Summary Hospital Course Problems/Diagnosis: (1) Status post vaginal delivery Status: Acute Assessment & Plan: PPD#1 Hb 12.2 Routine care. (2) Gestational hypertension Status: Acute Assessment & Plan: s/p delivery at 39wk - BP improved since delivery Hospital Course Date of Admission: Nov 11, 2021 at 06:03 Admission Diagnosis : Term intrauterine at 39 weeks gestation Gestational vs chronic hypertension GBS positive Rubella immune Family Physician/Provider: Maura Allison MD Date of Discharge: 11/13/21 Discharge Diagnosis: s/p spontaneous vaginal delivery Elevated blood pressure Hospital Course: Pt admitted for IOL at 39 weeks due to intermittent hypertension without preeclampsia. Uncomplicated labor, delivery and course. BP elevated somewhat on day 2, but improved on day 3, patient has home monitor and will closely monitor at home. Labs and Pending Lab Test: Home Meds Active Ibu (Ibuprofen) 600 Mg Tablet 600 Mg PO Q6HR PRN Reported Any Allergy (Fexofenadine HCl) 60 Mg Tablet 60 Mg PO DAILY Assessment/Pt DC Instructions Follow up with Dr. Allison in 6 weeks for visit. Monitor blood pressure at least daily for the next week and call office if above 140/90. Discharge Diet: Regular Diet Activity as Tolerated: Yes (avoid strenuous activity x 6 weeks) Discharge Physical Examination Allergies: Coded Allergies: diphenhydramine (Verified Allergy, Unknown, 10/25/19) General Appearance: No Apparent Distress, WD/WN Respiratory: Lungs Clear, Normal Breath Sounds Cardiovascular: Regular Rate, Rhythm, No Murmur Skin: Normal Color, Warm/Dry Neurologic/Psychiatric: Alert, Normal Mood/Affect MAURA ALLISON MD Nov 13, 2021 08:29
[2021-11-13 08:30] VITALS: BP 160/98
[2021-11-13] MEDS: DOCUSATE SODIUM 100 MG (COLACE) CAP PO SCH (08:30)
[2021-11-13] MEDS: LORATADINE (CLARITIN) 10 MG TAB PO SCH (08:31)
[~2021-11-13 12:15] MED LIST changes: +AMPICILLIN FOR IV USE 2,000 MG in NS (IVPB) 50 ML IV ONE; +BENZOCAINE/MENTHOL (DERMOPLAST) 56 ML CAN TP PRN; +BUPIVACAINE 0.25% 30 ML (SENSORCAINE) VIAL ONE; +CATHETER FLUSH 10 ML SYR IV SCH; +FEXO-14 PO; +IBUP-844 PO; +LACTATED RINGERS 1,000 ML IV ONE; +LIDOCAINE 1% INJ 20 ML 20 ML VIAL ONE; +MINERAL OIL CONCENTRATE 99.9% 15 ML UDC TOP PRN; +NALOXONE 0.4 MG/ML 1 ML (NARCAN) VIAL IV PRN; +ONDANSETRON 4 MG/2 ML (SDV) Z0FRAN IV PRN; +OXYTOCIN PRE-MIX DRIP 500 ML IV SCH; +WITCH HAZEL(TUCKS) 40 EA JAR TOP PRN; +fentaNYL 2 mcg/ml BUPIVA 0.125 100 ML ONE; +fentaNYL INJ 100 MCG/2 ML AMP INJ ONE; +fentaNYL INJ 100 MCG/2 ML AMP ONE
== END | disposition home or self-care (01) | DRG 807 ==
LOC: LDRP 11-11 06:03
PROVIDERS: ADMIT Family Medicine; ATTEND Family Medicine
PROC: 10E0XZZ Delivery of Products of Conception, External Approach (ICD-10-PCS; principal; 2021-11-11)
PROC: 0UQMXZZ Repair Vulva, External Approach (ICD-10-PCS; 2021-11-11)
DX: O13.4 Gestational [pregnancy-induced] hypertension without significant proteinuria, complicating childbirth (principal); Z37.0 Single live birth; Z3A.39 39 weeks gestation of pregnancy; O99.344 Other mental disorders complicating childbirth; F31.9 Bipolar disorder, unspecified; F41.9 Anxiety disorder, unspecified; F90.9 Attention-deficit hyperactivity disorder, unspecified type; O99.52 Diseases of the respiratory system complicating childbirth; J45.909 Unspecified asthma, uncomplicated; O99.334 Smoking (tobacco) complicating childbirth; F17.210 Nicotine dependence, cigarettes, uncomplicated; O99.824 Streptococcus B carrier state complicating childbirth; O69.81X0 Labor and delivery complicated by cord around neck, without compression, not applicable or unspecified; O71.82 Other specified trauma to perineum and vulva
CPT/HCPCS: 36415; 85007; 85025; 85027; 86850; 86900; 86901